=== PATIENT | female | born 1960 | race Caucasian/White ===

== ENCOUNTER → 2017-06-21 | Outpatient (CLI) | payer OTHER ==
[~2017-06-21] MED LIST: IBUP-1050 PO; OXYC-57 PO
[2017-06-25 14:18] LABS: HERPES SIMPLEX CULT SOURCE OTHER-FACIAL LESION; HERPES SIMPLEX VIRUS CULT NOT ISOLATED (NOT ISOLATED)
== END | disposition home or self-care (01) ==
LOC: C.LABSPEC 17:09
PROVIDERS: ATTEND Physician Assistant Medical
DX: L98.9 Disorder of the skin and subcutaneous tissue, unspecified (principal)

== ENCOUNTER → 2017-09-13 | Outpatient (CLI) | payer OTHER ==
[~2017-09-13] MED LIST changes: +ESCI10TA17 PO; +MULT-506 PO; +ROPI0.25 PO
[2017-09-13 13:30] LABS: BASO % 0.9 %; BASO ABS # 0.04 K/uL (0-0.2); EOS % 2.4 %; EOS ABS # 0.11 K/uL (0-0.5); HEMATOCRIT 42.3 % (37-47); HEMOGLOBIN 14.2 g/dL (12.0-16.0); IG# 0.01 K/uL (0.00-0.02); LYMPH % 33.8 %; LYMPH ABS # 1.55 K/uL (1.2-3.4); MEAN CELL VOLUME 85.3 fL (80-100); MEAN CORPUSCULAR HEMOGLOBIN 28.6 pg (25-34); MEAN CORPUSCULAR HGB CONC 33.6 g/dl (32-36); MEAN PLATELET VOLUME 10.4 fL (7.4-10.4); MONO % 10.9 %; NEUT % 51.8 %; NEUT ABS # 2.37 K/uL (1.4-6.5); PLATELET COUNT 265 K/uL (130-400); RED CELL DISTRIBUTION WIDTH CV 14.1 % (11.5-14.5); RED CELL DISTRIBUTION WIDTH SD 43.8 fL (36.4-46.3); WHITE BLOOD COUNT 4.58 K/uL (4.8-10.8)
[2017-09-13 13:52] LABS: ALBUMIN 3.9 gm/dl (3.4-5.0); ALT/SGPT 28 U/L (12-78); BLOOD UREA NITROGEN 15 mg/dl (7-18); CARBON DIOXIDE 28 mmol/L (21-32); CHOLESTEROL 200 mg/dl (0-200); CREATININE 0.76 mg/dl (0.60-1.20); GLUCOSE 95 mg/dl (70-99); SODIUM 138 mmol/L (136-145)
[2017-09-13 13:57] LABS: ALKALINE PHOSPHATASE 128 U/L (45-117); AST/SGOT 18 U/L (15-37); LDL CHOLESTEROL CALCULATED 130 mg/dl
== END | disposition home or self-care (01) ==
LOC: C.LABBC 10:33
PROVIDERS: ATTEND Physician Assistant Medical
DX: Z00.00 Encounter for general adult medical examination without abnormal findings (principal); R10.9 Unspecified abdominal pain; G25.81 Restless legs syndrome

== ENCOUNTER 2023-09-12 19:11 | Inpatient (IN) ==
[2023-09-12] MEDS ORDERED: SODIUM CHLORIDE 0.9% 1,000 ML IV STA (19:20)
[2023-09-12] MEDS ORDERED: SODIUM CHLORIDE 0.9% 1,000 ML IV ONE (19:30)
[2023-09-12] MEDS ORDERED: fentaNYL citrate PF 100 MCG/2 ML VIAL IV STA (19:30)
[2023-09-12] MEDS ORDERED: ONDANSETRON INJ 2 MG/ML 2 ML VIAL IV STA (19:30)
--- NOTE | 2023-09-12 19:34 | Emergency Department Note ---
Impression & Plan Perforated viscus, Abdominal pain ED Provider Note HISTORY OF PRESENT ILLNESS: Patient is a 62-year-old female presenting with lower abdominal pain, nausea and vomiting. Patient reports that she started to have diffuse lower abdominal pain this morning states that the pain has significantly worsened throughout the day. Describes it as a sharp and pressure sensation. Locates the pain diffusely across her lower abdomen. Reports nausea and multiple episodes of vomiting. Denies any diarrhea. Abdominal surgical history significant for a cholecystectomy. Reports subjective fevers at home today. Denies any dysuria or hematuria. ROS: as above PHYSICAL EXAM: Constitutional: Patient appears in mild distress. HENT: Head: Normocephalic and atraumatic. Eyes: EOMI, PERRL Mouth/Throat: Mucous membranes moist. Neck: Trachea midline. Neck supple. Cardiovascular: Bradycardic with regular rhythm. No murmurs, rubs or gallops. Intact distal pulses. Pulmonary/Chest: No respiratory distress. Breath sounds clear and equal bilaterally. No wheezes or rales. Abdominal: Abdomen soft. Diffuse tenderness across lower abdomen. Guarding present. Musculoskeletal: No edema, tenderness or deformity noted. Skin: Warm and dry. No rash, erythema, pallor or cyanosis Psychiatric: Appropriate mood and affect for situation. Neurological: Alert and keenly responsive. CN II-XII grossly intact, moving all extremities equally and fully. MDM: - Vitals signs showed hypotensive and bradycardic. - History obtained via patient. Patient presents with abdominal pain, nausea and vomiting. Patient reports symptoms started diffusely across her lower abdomen this morning and have significantly worsened throughout the day. Describes it as a sharp and pressure sensation. Reports an abdominal surgical history significant for cholecystectomy. Reports subjective fevers at home. She has had multiple episodes of vomiting and persistent nausea. - Chronic conditions affecting care: GERD - Differential diagnoses include, but are not limited to: appendicitis; diverticulitis; colitis; perforated viscus; UTI; ureteral calculus - Order placed for continuous cardiac monitoring. At this time, monitor showed rate of 50 bpm with normal sinus rhythm, per my interpretation. - External medical records reviewed. - EKG interpreted by myself showed normal sinus rhythm. Rate bradycardic at 44 bpm. QTc 437. No acute ischemic changes. - Laboratory workup interpreted by myself showed normal WBC but left shift; stable electrolytes; normal lipase - Patient given 2L NS, 4 mg IV zofran and initially 25 mcg IV fentanyl. Her blood pressure improved, but she complained of significant pain still. Given 4 mg IV morphine. On reassessment, still complaining of pain. Given 0.5 mg IV dilaudid. On reassessment, appears more comfortable. - UA showed evidence of infection. Given 2g IV rocephin - CT abdomen/pelvis with IV contrast showed scattered free intraperitoneal air concerning for bowel perforation. Given IV zosyn. - Discussed case with general surgery oncology admin, Dr. Alvarez at 9:45 pm. She plans to come assess patient. Requests admission to medicine - Hospitalist, Dr. Hess, consulted for admission. - Patient admitted to [facility] service for further evaluation and management. I have personally spent 46 minutes of critical care time in the direct management of this patient. This includes bedside care, interpretation of diagnostic studies, and testing, discussion with consultants, patient, and family members, and other required patient management activities. This 46 minutes is in excess of all separately billable procedures. ASSESSMENT AND PLAN: Diagnosis: abdominal pain Plan: admit Past Med/Surg History Medical History Abnormal angiogram of head GERD (gastroesophageal reflux disease) Hot flashes due to menopause Osteoarthritis Restless leg syndrome Synovial cyst of lumbar facet joint (08/04/14) Surgical History Brain aneurysm Cyst History of cholecystectomy History of colonoscopy Family History Mother Family history of diabetes mellitus Grandmother Family history of diabetes mellitus Social History Smoking Status: Never smoker Second Hand Exposure: No; Do You Dip or Chew Tobacco: No; Hx Alcohol Use: Yes Alcohol type: wine Hx Substance Use: No Preferred Language: Afghan Communication Ability: Effective Visual Impairment: Limited Hearing Ability: Normal Truck 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 Required: No Beliefs That Will Affect Care: None marital status: Current Living Situation: Spouse Feels Safe at Home: Yes Childhood Exposure to Second-Hand Smoke: No caffeine: Yes Dental Care, Regularly: Yes Physical Activity Frequency: 3-4 Times per Week Seatbelt Use: always Sunscreen Use: Yes Assistive Devices: Contacts Allergies Allergies Allergy/AdvReac Type Severity Reaction Status Date / Time No Known Allergies Allergy Verified 02/01/22 10:41 Home Meds Home Medications Medication Instructions Recorded Confirmed omeprazole magnesium 20 mg 20 mg PO QAM 07/03/18 02/01/22 tablet,delayed release (Prilosec OTC) cholecalciferol (vitamin D3) 50 2,000 units PO DAILY 09/18/19 02/01/22 mcg (2,000 unit) tablet Results & Data (ED) Vital Signs Vital Signs - 24 hr 09/12/23 19:14 09/12/23 19:25 09/12/23 19:26 Temperature 36.3 C L Temperature Source Oral Pulse Rate 48 L 42 L 42 L Pulse Rate [Apical] Pulse Rate from SpO2 Sensor Pulse Rhythm [Apical] Pulse Strength [Apical] Respiratory Rate 18 12 Respiratory Effort / Characteristics Non-Labored Spontaneous Respiratory Depth Normal Respiratory Pattern Regular Blood Pressure 77/47 L Blood Pressure [Right Arm] Blood Pressure Mean 57 Blood Pressure Mean [Right Arm] Blood Pressure Position Sitting Blood Pressure Position [Right Arm] Pulse Oximetry 100 Oxygen Delivery Method Room Air Sepsis Recent Fever Within 48 Hours No Sepsis New/Unexplained Change in Mental Status N/A Sepsis Action Taken by Nursing No Action Required 09/12/23 19:26 09/12/23 19:29 09/12/23 19:30 Temperature Temperature Source Pulse Rate Pulse Rate [Apical] Pulse Rate from SpO2 Sensor Pulse Rhythm [Apical] Pulse Strength [Apical] Respiratory Rate Respiratory Effort / Characteristics Respiratory Depth Respiratory Pattern Blood Pressure 89/35 L 88/47 L Blood Pressure [Right Arm] Blood Pressure Mean 54 60 Blood Pressure Mean [Right Arm] Blood Pressure Position Blood Pressure Position [Right Arm] Pulse Oximetry 98 Oxygen Delivery Method Room Air Sepsis Recent Fever Within 48 Hours Sepsis New/Unexplained Change in Mental Status Sepsis Action Taken by Nursing 09/12/23 19:30 09/12/23 19:40 09/12/23 19:50 Temperature Temperature Source Pulse Rate 47 L 49 L 54 L Pulse Rate [Apical] Pulse Rate from SpO2 Sensor 49 L 55 L Pulse Rhythm [Apical] Pulse Strength [Apical] Respiratory Rate 17 21 19 Respiratory Effort / Characteristics Respiratory Depth Respiratory Pattern Blood Pressure Blood Pressure [Right Arm] Blood Pressure Mean Blood Pressure Mean [Right Arm] Blood Pressure Position Blood Pressure Position [Right Arm] Pulse Oximetry 97 100 94 Oxygen Delivery Method Sepsis Recent Fever Within 48 Hours Sepsis New/Unexplained Change in Mental Status Sepsis Action Taken by Nursing 09/12/23 19:57 09/12/23 19:57 09/12/23 20:00 Temperature Temperature Source Pulse Rate 55 L 63 Pulse Rate [Apical] Pulse Rate from SpO2 Sensor 54 L Pulse Rhythm [Apical] Pulse Strength [Apical] Respiratory Rate 17 20 Respiratory Effort / Characteristics Respiratory Depth Respiratory Pattern Blood Pressure 98/62 L Blood Pressure [Right Arm] Blood Pressure Mean 74 Blood Pressure Mean [Right Arm] Blood Pressure Position Blood Pressure Position [Right Arm] Pulse Oximetry 98 95 Oxygen Delivery Method Room Air Sepsis Recent Fever Within 48 Hours Sepsis New/Unexplained Change in Mental Status Sepsis Action Taken by Nursing 09/12/23 20:00 09/12/23 20:10 09/12/23 20:10 Temperature Temperature Source Pulse Rate 54 L Pulse Rate [Apical] Pulse Rate from SpO2 Sensor Pulse Rhythm [Apical] Pulse Strength [Apical] Respiratory Rate 22 Respiratory Effort / Characteristics Respiratory Depth Respiratory Pattern Blood Pressure 105/63 77/63 L Blood Pressure [Right Arm] Blood Pressure Mean 78 67 Blood Pressure Mean [Right Arm] Blood Pressure Position Blood Pressure Position [Right Arm] Pulse Oximetry 96 Oxygen Delivery Method Room Air Sepsis Recent Fever Within 48 Hours Sepsis New/Unexplained Change in Mental Status Sepsis Action Taken by Nursing 09/12/23 20:11 09/12/23 20:11 09/12/23 20:11 Temperature Temperature Source Pulse Rate 51 L Pulse Rate [Apical] 52 L Pulse Rate from SpO2 Sensor 52 L Pulse Rhythm [Apical] Regular Pulse Strength [Apical] Normal Respiratory Rate 16 21 Respiratory Effort / Characteristics Non-Labored Spontaneous Respiratory Depth Normal Respiratory Pattern Regular Blood Pressure 93/55 L Blood Pressure [Right Arm] 95/54 L Blood Pressure Mean 60 Blood Pressure Mean [Right Arm] 67 Blood Pressure Position Blood Pressure Position [Right Arm] Semi-fowlers Pulse Oximetry 96 98 Oxygen Delivery Method Room Air Sepsis Recent Fever Within 48 Hours Sepsis New/Unexplained Change in Mental Status Sepsis Action Taken by Nursing 09/12/23 20:30 09/12/23 20:30 09/12/23 20:40 Temperature Temperature Source Pulse Rate 47 L Pulse Rate [Apical] Pulse Rate from SpO2 Sensor 47 L Pulse Rhythm [Apical] Pulse Strength [Apical] Respiratory Rate 24 Respiratory Effort / Characteristics Respiratory Depth Respiratory Pattern Blood Pressure 96/55 L 94/68 L Blood Pressure [Right Arm] Blood Pressure Mean 70 81 Blood Pressure Mean [Right Arm] Blood Pressure Position Blood Pressure Position [Right Arm] Pulse Oximetry 97 Oxygen Delivery Method Sepsis Recent Fever Within 48 Hours Sepsis New/Unexplained Change in Mental Status Sepsis Action Taken by Nursing 09/12/23 20:40 09/12/23 20:47 09/12/23 21:00 Temperature Temperature Source Pulse Rate 47 L Pulse Rate [Apical] 64 Pulse Rate from SpO2 Sensor 48 L Pulse Rhythm [Apical] Pulse Strength [Apical] Respiratory Rate 26 H 18 Respiratory Effort / Characteristics Respiratory Depth Respiratory Pattern Blood Pressure 96/56 L Blood Pressure [Right Arm] 110/62 Blood Pressure Mean 64 Blood Pressure Mean [Right Arm] 78 Blood Pressure Position Blood Pressure Position [Right Arm] Pulse Oximetry 95 94 Oxygen Delivery Method Room Air Sepsis Recent Fever Within 48 Hours Sepsis New/Unexplained Change in Mental Status Sepsis Action Taken by Nursing 09/12/23 21:00 09/12/23 21:31 Temperature Temperature Source Pulse Rate 64 Pulse Rate [Apical] 71 Pulse Rate from SpO2 Sensor Pulse Rhythm [Apical] Pulse Strength [Apical] Respiratory Rate 18 18 Respiratory Effort / Characteristics Non-Labored Respiratory Depth Normal Respiratory Pattern Blood Pressure 96/56 L Blood Pressure [Right Arm] 109/59 L Blood Pressure Mean 69 Blood Pressure Mean [Right Arm] 75 Blood Pressure Position Blood Pressure Position [Right Arm] Pulse Oximetry 94 95 Oxygen Delivery Method Room Air Room Air Sepsis Recent Fever Within 48 Hours Sepsis New/Unexplained Change in Mental Status Sepsis Action Taken by Nursing Laboratory Data 09/12/23 19:20 09/12/23 19:20 Lab Results 09/12/23 09/12/23 Range/Units 19:20 19:41 WBC 9.01 (4.8-10.8) K/ul RBC 4.74 (4.20-5.40) M/uL Hgb 12.9 (12.0-16.0) g/dl Hct 40.8 (37.0-47.0) % MCV 86.1 (80.0-100.0) fL MCH 27.2 (25.0-34.0) pg MCHC 31.6 L (32.0-36.0) g/dL RDW Std Deviation 45.0 (36.4-46.3) fL RDW Coeff of [place]ued[place] 14.2 (11.5-14.5) % Plt Count 260 (130-400) K/uL MPV 10.3 (9.4-12.4) fL Immature Gran % (Auto) 0.3 % Neut % (Auto) 82.6 % Lymph % (Auto) 12.0 % [place] % (Auto) 4.8 % Eos % (Auto) 0.0 % Baso % (Auto) 0.3 % Neut # (Auto) 7.44 H (1.40-6.50) K/uL Lymph # (Auto) 1.08 L (1.20-3.40) K/uL [place] # (Auto) 0.43 (0.11-0.59) K/uL Eos # (Auto) 0.00 (0.00-0.50) K/uL Baso # (Auto) 0.03 (0.00-0.20) K/uL Immature Gran # (Auto) 0.03 (0.01-0.20) K/uL Sodium 138 (136-145) mmol/L Potassium 3.5 (3.5-5.1) mmol/L Chloride 106 (98-107) mmol/L Carbon Dioxide 22 (21-32) mmol/L Anion Gap 10 (3-11) BUN 29 H (6-23) mg/dl Creatinine 1.04 (0.6-1.2) mg/dl Est Cr Clr Drug Dosing Not Reportable Est GFR ( Amer) 65.8 ml/min Est GFR (Non-Af Amer) 56.7 ml/min BUN/Creatinine Ratio 27.9 H (10-20) Glucose 112 H (70-99(Fasting)) mg/dl Calcium 8.8 (8.6-10.3) mg/dl Total Bilirubin 0.4 (0.2-1.0) mg/dl AST 16 (13-39) U/L ALT 18 (7-52) U/L Alkaline Phosphatase 107 H (34-104) U/L Total Protein 6.8 (6.0-8.3) gm/dl Albumin 3.9 (3.4-5.0) gm/dl Globulin 2.9 (2.5-4.0) gm/dl Albumin/Globulin Ratio 1.3 (0.9-2) Lipase 23 (11-82) U/L Urine Color Yellow Urine Appearance Cloudy A (Clear) Urine pH 5.5 (4.5-7.5) Ur Specific [place] 1.020 (1.000-1.030) Urine Protein Negative (Negative) Urine Glucose (UA) Negative (Negative) Urine Ketones Negative (Negative) Urine Blood 1+ H (Negative) Urine Nitrite Positive A (Negative) Urine Bilirubin Negative (Negative) Urine Urobilinogen Negative (Negative) Ur Leukocyte Esterase 2+ H (Negative) Urine WBC (Auto) >30 H (0-5) /hpf Urine RBC (Auto) 0-4 (0-4) /hpf U Hyaline Cast (Auto) 10-30 H (0-5) /lpf U Epithel Cells (Auto) 0-5 (0-5) /lpf Urine Bacteria (Auto) 3+ H (Negative) Administered Medications Piperacillin Sod/Tazobactam Sod (Zosyn) 4.5 gm in 100 mls @ 200 mls/hr IV NOW ONE Stop: 09/12/23 21:54 Last Admin: 09/12/23 21:31 Dose: 200 mls/hr Documented By: TACO Discontinued Medications Fentanyl Citrate (Fentanyl Citrate Pf 100 Mcg/2 Ml Vial) 25 mcg IV NOW STA Stop: 09/12/23 19:31 Last Admin: 09/12/23 19:36 Dose: 25 mcg Documented By: CHARI Hydromorphone HCl (Hydromorphone Inj 0.5 Mg/0.5 Ml Syr) 0.5 mg IV NOW STA Stop: 09/12/23 20:40 Last Admin: 09/12/23 20:48 Dose: 0.5 mg Documented By: TACO Sodium Chloride (Nss) 1,000 mls @ 999 mls/hr IV .Q1H1M STA Stop: 09/12/23 20:20 Last Infusion: 09/12/23 20:36 Dose: Infused Documented By: Admin: 09/12/23 19:29 Dose: 999 mls/hr Documented By: CHARI Sodium Chloride (Nss) 1,000 mls @ 999 mls/hr IV .Q1H1M ONE Stop: 09/12/23 20:30 Last Infusion: 09/12/23 20:36 Dose: Infused Documented By: Admin: 09/12/23 19:42 Dose: 999 mls/hr Documented By: CHARI Ceftriaxone Sodium (Rocephin) 2,000 mg in 50 mls @ 100 mls/hr IV NOW STA Stop: 09/12/23 20:26 Last Infusion: 09/12/23 21:03 Dose: Infused Documented By: Admin: 09/12/23 20:33 Dose: 100 mls/hr Documented By: CHARI Ioversol (Optiray 320 500ml) 89 ml IV ONCE ONE Stop: 09/12/23 20:20 Last Admin: 09/12/23 20:20 Dose: 89 ml Documented By: BEATRICE Morphine Sulfate (Morphine Sulfate 4 Mg/Ml 1 Ml Carp\Vial) 4 mg IV NOW STA Stop: 09/12/23 19:59 Last Admin: 09/12/23 20:04 Dose: 4 mg Documented By: LAY Ondansetron HCl (Ondansetron Inj 2 Mg/Ml 2 Ml Vial) 4 mg IV NOW STA Stop: 09/12/23 19:31 Last Admin: 09/12/23 19:35 Dose: 4 mg Documented By: CHARI Imaging Data Radiologist's Impression: Abdomen/Pelvis CT 09/12/23 19:21 CR Exam(s): CT ABDOMEN + PELVIS With Contrast IV Amt: 89 ml opti 320 EXAM: CT Abdomen and Pelvis With Intravenous Contrast CLINICAL HISTORY: Reason for exam: lower abdominal pain. TECHNIQUE: Axial computed tomography images of the abdomen and pelvis with intravenous contrast. CTDI is 20.71 mGy and DLP is 1111.44 mGy-cm. Automated exposure control was utilized for the study. A dose lowering technique was utilized adhering to the principles of ALARA. CONTRAST: Patient received 89 ml opti 320 of IV contrast COMPARISON: None. FINDINGS: Lung bases: Mild bilateral lower lobe atelectasis. Small foci of ground as opacities versuspattern to the lung bases may indicate pneumonitis versus small airway disease. Mediastinum: Moderate to large hiatal hernia. ABDOMEN: Liver: Multiple low-attenuation structures within the liver with Hounsfield units suggestive of liver cysts, largest seen in the left liver lobe measuring 2.4 cm. Remainder of the liver unremarkable. Gallbladder and bile ducts: Status post cholecystectomy. No ductal dilation. Pancreas: Unremarkable. No mass. No ductal dilation. Spleen: Unremarkable. No splenomegaly. Adrenals: Unremarkable. No mass. Kidneys and ureters: Mild fullness of the left renal collecting system and left renal pelvis suggestive of left UPJ etiology. The left ureter is normal. Stomach and bowel: Multiple loops of small bowel mildly distended which may indicate mild ileus. Due to thickening of small bowel, cannot this with enteritis. Thickening of the wall throughout the right colon and descending colon/sigmoid suggestive of colitis. Diverticulosis throughout the colon diffusely with no signs of diverticulitis. PELVIS: Appendix: Distinct appendix not visualized. Bladder: Unremarkable. No mass. Reproductive: Unremarkable as visualized. ABDOMEN and PELVIS: Intraperitoneal space: Scattered areas of free intraperitoneal air. Mild to moderate free fluid within the pelvis. Bones/joints: Anterolisthesis of L4 and L5 without pars defect. Mild spondylosis and degenerative disease throughout the lumbar spine and bilateral SI joints. No acute fracture. No dislocation. Soft tissues: Left medullary nipple low-attenuation structure measuring 12 mm compatible with simple cysts. Vasculature: Unremarkable. No abdominal aortic aneurysm. Lymph nodes: Unremarkable. No enlarged lymph nodes. IMPRESSION: 1. Scattered free intraperitoneal air which may indicate sequela of recent surgery versus bowel perforation. 2. Moderate to large hiatal hernia. Possible colitis. Mild small bowel distention in the mid low abdomen and pelvis concerning for ileus. Cannot exclude with enteritis. 3. Mild to moderate free fluid in the pelvis. 4. Multiple sub-the left renal collecting system with normal left ureter, cannot exclude left hip joint etiology. Status post cholecystectomy, multiple liver cyst as described. Remainder of abdominal viscera are unremarkable. Communications: Call Doctor Other Electronically signed by: Norma Rebolledo MD 09/12/23 21:22 PM Discharge Plan Visit Data Chief Complaint: Abdominal Pain Stated Complaint: SEVERE ABD PAIN ED Provider: Noemy Delgado Discharge Problem: Perforated viscus, Abdominal pain Forms Stand Alone Forms: My [facility] Travel Prescriptions Prescriptions: No Action cholecalciferol (vitamin D3) 2,000 unit tablet 2,000 units PO DAILY omeprazole magnesium [Prilosec OTC] 20 mg Tablet,Delayed Release (Dr/Ec) 20 mg PO QAM Referrals Referrals: [facility] [Non-Staff] -
[2023-09-12 19:53] LABS: Appearance Urine Cloudy (Clear); Bacteria Urine Automated 3+ (Negative); Bilirubin Urine Negative (Negative); Blood Urine 1+ (Negative); Color Urine Yellow; Epithelial Cell Urine Auto 0-5 /lpf (0-5); Glucose Urine UA Negative (Negative); Ketones Urine Negative (Negative); Leukocyte Esterase Urine 2+ (Negative); Nitrite Urine Positive (Negative); Protein Urine Negative (Negative); RBC Urine Automated 0-4 /hpf (0-4); Urobilinogen Urine Negative (Negative); WBC Urine Automated >30 /hpf (0-5); pH Urine 5.5 (4.5-7.5)
[2023-09-12] MEDS ORDERED: cefTRIAXone SODIUM 2,000 MG/50 ML BAG IV STA (19:57)
[2023-09-12 19:58] LABS: Alanine Aminotransferase 18 U/L (7-52); Albumin Globulin Ratio 1.3 (0.9-2); Albumin Level 3.9 gm/dl (3.4-5.0); Alkaline Phosphatase 107 U/L (34-104); Anion Gap 10 (3-11); Aspartate Aminotransferase 16 U/L (13-39); BUN Creatinine Ratio 27.9 (10-20); Bilirubin,Total 0.4 mg/dl (0.2-1.0); Blood Urea Nitrogen 29 mg/dl (6-23); Calcium 8.8 mg/dl (8.6-10.3); Carbon Dioxide 22 mmol/L (21-32); Chloride 106 mmol/L (98-107); Est GFR (African American) 65.8 ml/min; Est GFR (Non-African American) 56.7 ml/min; Globulin 2.9 gm/dl (2.5-4.0); Glucose 112 mg/dl (70-99(Fasting)); Lipase 23 U/L (11-82); Potassium 3.5 mmol/L (3.5-5.1); Sodium 138 mmol/L (136-145); Total Protein 6.8 gm/dl (6.0-8.3)
[2023-09-12] MEDS ORDERED: MoRPHine SULFATE 4 MG/ML 1 ML CARP\\VIAL IV STA (19:58)
[2023-09-12 20:17] LABS: Basophils # (auto) 0.03 K/uL (0.00-0.20); Basophils % (auto) 0.3 %; Hematocrit (blood only) 40.8 % (37.0-47.0); Hemoglobin 12.9 g/dl (12.0-16.0); Immature Granulocytes # (auto) 0.03 K/uL (0.01-0.20); Immature Granulocytes % (auto) 0.3 %; Lymphocytes # (auto) 1.08 K/uL (1.20-3.40); Mean Corpuscular Hemoglobin 27.2 pg (25.0-34.0); Mean Corpuscular Hgb Conc 31.6 g/dL (32.0-36.0); Mean Corpuscular Volume 86.1 fL (80.0-100.0); Mean Platelet Volume 10.3 fL (9.4-12.4); Monocytes # (auto) 0.43 K/uL (0.11-0.59); Monocytes % (auto) 4.8 %; Neutrophils # (auto) 7.44 K/uL (1.40-6.50); Neutrophils % (auto) 82.6 %; Platelet Count 260 K/uL (130-400); RDW Coefficient of Variation 14.2 % (11.5-14.5); Red Blood Count 4.74 M/uL (4.20-5.40); White Blood Count 9.01 K/ul (4.8-10.8)
[2023-09-12] MEDS ORDERED: OPTIRAY 320 500ml IV ONE (20:19)
[2023-09-12] MEDS ORDERED: HYDROmorphone INJ 0.5 MG/0.5 ML SYR IV STA (20:39)
--- NOTE | 2023-09-12 21:23 | CT Scan Report ---
Exam(s): CT ABDOMEN + PELVIS With Contrast IV Amt: 89 ml opti 320 EXAM: CT Abdomen and Pelvis With Intravenous Contrast CLINICAL HISTORY: Reason for exam: lower abdominal pain. TECHNIQUE: Axial computed tomography images of the abdomen and pelvis with intravenous contrast. CTDI is 20.71 mGy and DLP is 1111.44 mGy-cm. Automated exposure control was utilized for the study. A dose lowering technique was utilized adhering to the principles of ALARA. CONTRAST: Patient received 89 ml opti 320 of IV contrast COMPARISON: None. FINDINGS: Lung bases: Mild bilateral lower lobe atelectasis. Small foci of ground as opacities versuspattern to the lung bases may indicate pneumonitis versus small airway disease. Mediastinum: Moderate to large hiatal hernia. ABDOMEN: Liver: Multiple low-attenuation structures within the liver with Hounsfield units suggestive of liver cysts, largest seen in the left liver lobe measuring 2.4 cm. Remainder of the liver unremarkable. Gallbladder and bile ducts: Status post cholecystectomy. No ductal dilation. Pancreas: Unremarkable. No mass. No ductal dilation. Spleen: Unremarkable. No splenomegaly. Adrenals: Unremarkable. No mass. Kidneys and ureters: Mild fullness of the left renal collecting system and left renal pelvis suggestive of left UPJ etiology. The left ureter is normal. Stomach and bowel: Multiple loops of small bowel mildly distended which may indicate mild ileus. Due to thickening of small bowel, cannot this with enteritis. Thickening of the wall throughout the right colon and descending colon/sigmoid suggestive of colitis. Diverticulosis throughout the colon diffusely with no signs of diverticulitis. PELVIS: Appendix: Distinct appendix not visualized. Bladder: Unremarkable. No mass. Reproductive: Unremarkable as visualized. ABDOMEN and PELVIS: Intraperitoneal space: Scattered areas of free intraperitoneal air. Mild to moderate free fluid within the pelvis. Bones/joints: Anterolisthesis of L4 and L5 without pars defect. Mild spondylosis and degenerative disease throughout the lumbar spine and bilateral SI joints. No acute fracture. No dislocation. Soft tissues: Left medullary nipple low-attenuation structure measuring 12 mm compatible with simple cysts. Vasculature: Unremarkable. No abdominal aortic aneurysm. Lymph nodes: Unremarkable. No enlarged lymph nodes. IMPRESSION: 1. Scattered free intraperitoneal air which may indicate sequela of recent surgery versus bowel perforation. 2. Moderate to large hiatal hernia. Possible colitis. Mild small bowel distention in the mid low abdomen and pelvis concerning for ileus. Cannot exclude with enteritis. 3. Mild to moderate free fluid in the pelvis. 4. Multiple sub-the left renal collecting system with normal left ureter, cannot exclude left hip joint etiology. Status post cholecystectomy, multiple liver cyst as described. Remainder of abdominal viscera are unremarkable. Communications: Call Doctor Other Electronically signed by: Norma Rebolledo MD 09/12/23 21:22 PM
[2023-09-12] MEDS ORDERED: PIPERACILLIN/TAZOBACTAM 4.5 GM/100 ML BAG IV ONE (21:25)
--- NOTE | 2023-09-12 22:49 | Surgery Consultation ---
Date of Consultation September 12, 2023 Assessment & Plan (1) Perforated viscus: (2) Abdominal pain: Zo is currently afebrile, hemodynamically stable and without leukocytosis, slightly elevated absolute neutrophil count. She does have signs of peritonitis with a considerable amount of fluid within the pelvis and scattered free air noted on CT imaging. Zo will be taken to the operating room for exploratory laparoscopy, possible laparotomy, possible bowel resection, possible colostomy and all other indicated procedures. I have explained to Zo and her that what ever is in countered to be the sick organ may need to be resected and or suture repaired. The understand the explanation of the procedure, risks and benefits. Consent has been obtained and is on the chart. Admission to medicine has been initiated N.p.o. status now and postoperatively IV fluids and IV antibiotics have been initiated in the emergency department and should continue postoperatively No chemical DVT prophylaxis at this time, mechanical DVT prophylaxis will be initiated Incentive spirometer postoperatively History of Present Illness Reason for Consultation: Perforated viscus History of Present Illness Zo is a very pleasant 62-year-old female with no significant past medical history who presented to the ED with abdominal pain that started in her left lower abdomen early this morning. She states this pain became progressively worse throughout the afternoon and by this evening was so severe that she was feeling lightheaded, nausea with vomiting and mentally altered. She was brought into the ED by her Jacky. Zo says she has never had anything like this happen in the past although she does note having a prior episode of diverticulitis roughly 18 years ago during which time she was treated with oral antibiotics. Zo says she has had a few colonoscopies her most recent colonoscopy was performed here on July 08, 2018 at which time to polyps were removed and ricketts diverticulosis was noted. Zo denies any significant acid reflux. Allergies Allergy/AdvReac Type Severity Reaction Status Date / Time No Known Allergies Allergy Verified 09/12/23 22:01 Home Medications Medication Instructions Recorded Confirmed Type omeprazole magnesium 20 mg 20 mg PO QAM 07/03/18 09/12/23 History tablet,delayed release (Prilosec OTC) escitalopram oxalate 10 mg tablet 10 mg PO QAM 09/12/23 09/12/23 History Patient History Medical History Abnormal angiogram of head GERD (gastroesophageal reflux disease) Hot flashes due to menopause Osteoarthritis Restless leg syndrome Synovial cyst of lumbar facet joint (08/04/14) Surgical History Brain aneurysm Cyst History of cholecystectomy History of colonoscopy Family History Mother Family history of diabetes mellitus Grandmother Family history of diabetes mellitus Social History Smoking Status: Never smoker Second Hand Exposure: No; Do You Dip or Chew Tobacco: No; Hx Alcohol Use: Yes Alcohol type: wine Hx Substance Use: No Preferred Language: Irish Communication Ability: Effective Visual Impairment: Limited Hearing Ability: Normal Air Intercept Controller Supervisor Required: No Beliefs That Will Affect Care: None marital status: Current Living Situation: Spouse Feels Safe at Home: Yes Childhood Exposure to Second-Hand Smoke: No caffeine: Yes Dental Care, Regularly: Yes Physical Activity Frequency: 3-4 Times per Week Seatbelt Use: always Sunscreen Use: Yes Assistive Devices: Contacts Review of Systems Constitutional: no body aches, no malaise, no anorexia and no weight loss Respiratory: no cough, no dyspnea, no wheezing and no problem reported Gastrointestinal: + abdominal pain (Primarily left lower q uadrant), + bloating, + nausea (None current) and + vomiting (None current); no heartburn Genitourinary: no dysuria, no urinary frequency, no hematuria and no flank pain Physical Exam Constitutional: healthy appearing; not ill appearing, not in distress (Visibly in pain, very stoic) and not diaphoretic Respiratory: normal respiratory effort; no respiratory distress, no labored breathing and does not use accessory muscles Cardiovascular: Rate/Rhythm: regular rate; not tachycardic Extremities are well-perfused Gastrointestinal (Abdomen): Abdomen mildly distended Abdomen is rigid/peritonitic Tender to palpation left upper quadrant and bilateral lower quadrants Results & Data Vital Signs (Past 12 Hours) Vital Signs Temp Pulse Pulse Resp BP BP Pulse Ox 09/12/23 22:01 61 18 115/63 94 09/12/23 21:31 71 18 109/59 L 95 09/12/23 21:00 64 18 96/56 L 94 09/12/23 21:00 96/56 L 09/12/23 20:47 64 18 110/62 94 09/12/23 20:40 47 L 26 H 95 09/12/23 20:40 94/68 L 09/12/23 20:30 96/55 L 09/12/23 20:30 47 L 24 97 09/12/23 20:11 93/55 L 09/12/23 20:11 51 L 21 98 09/12/23 20:11 52 L 16 95/54 L 96 09/12/23 20:10 77/63 L 09/12/23 20:10 54 L 22 96 09/12/23 20:00 105/63 09/12/23 20:00 63 20 95 09/12/23 19:57 98/62 L 09/12/23 19:57 55 L 17 98 09/12/23 19:50 54 L 19 94 09/12/23 19:40 49 L 21 100 09/12/23 19:30 47 L 17 97 09/12/23 19:30 88/47 L 09/12/23 19:29 98 09/12/23 19:26 89/35 L 09/12/23 19:26 42 L 12 09/12/23 19:25 42 L 09/12/23 19:14 36.3 C L 48 L 18 77/47 L 100 O2 Del Method 09/12/23 22:01 Room Air 09/12/23 21:31 Room Air 09/12/23 21:00 Room Air 09/12/23 21:00 09/12/23 20:47 Room Air 09/12/23 20:40 09/12/23 20:40 09/12/23 20:30 09/12/23 20:30 09/12/23 20:11 09/12/23 20:11 09/12/23 20:11 Room Air 09/12/23 20:10 09/12/23 20:10 Room Air 09/12/23 20:00 09/12/23 20:00 09/12/23 19:57 09/12/23 19:57 Room Air 09/12/23 19:50 09/12/23 19:40 09/12/23 19:30 09/12/23 19:30 09/12/23 19:29 Room Air 09/12/23 19:26 09/12/23 19:26 09/12/23 19:25 09/12/23 19:14 Room Air Diagnostic Findings CT abdomen and pelvis with IV contrast: I reviewed the CT scan myself. There are scattered spots of free air throughout the abdomen with a moderate amount of fluid in the pelvis. This fluid appears to be adjacent to the sigmoid colon where there is some haziness but it is difficult to identify a specific area of inflammation due to the fluid abutting the area. The radiology read is available noting some distended loops of small bowel as well as bowel wall thickening, scattered free air, free fluid. PG Care Time/CCT Total # of Minutes Spent Total Time Spent with Patient: Total time spent is greater than 50% in coordination of care (as documented) at patient's floor/unit and/or counseling patient: [place] [address] OFFICE CONSULT LVL 40M Patient Type New History Detailed Exam Detailed Medical Decision Making Moderate Complexity Diagnoses Perforated viscus R19.8 Abdominal pain R10.9
--- NOTE | 2023-09-12 22:52 | Anesthesiology Consultation ---
Date of Service September 12, 2023 Assessment & Plan (1) Encounter for pre-operative examination: Chart Review Chart Review: Patient NOT seen in Pre Admission Testing emergent procedure Consults Requested none History Surgery Operation Date: 09/12/23 23:00 Proposed Procedures p Laparoscopic Bowel Resection - Fariha Alvarez DO Height/Weight Height: 5 ft 8 in Weight: 84.5 kg Allergies Allergy/AdvReac Type Severity Reaction Status Date / Time No Known Allergies Allergy Verified 09/12/23 22:01 Medications Home Medications Medication Instructions Recorded Confirmed Last Taken omeprazole magnesium 20 mg 20 mg PO QAM 07/03/18 09/12/23 09/12/23 tablet,delayed release (Prilosec OTC) escitalopram oxalate 10 mg tablet 10 mg PO QAM 09/12/23 09/12/23 09/12/23 Past Medical History Medical History Osteoarthritis GERD (gastroesophageal reflux disease) Hot flashes due to menopause Abnormal angiogram of head MULTIPLE ANGIOGRAMS S/P ANEURYSM Restless leg syndrome Synovial cyst of lumbar facet joint (08/04/14) Past Family History Family History Mother Family history of diabetes mellitus Grandmother Family history of diabetes mellitus Past Surgical History Surgical History Cyst ON BACK REMOVED History of colonoscopy 06/2018 repeat 5 yrs History of cholecystectomy Brain aneurysm COILED 4 YEARS AGO Social History Smoking Status: Never smoker Do You Dip or Chew Tobacco: No Hx Alcohol Use: Yes Alcohol type: wine alcohol intake frequency: a few times a month Hx Substance Use: No substance use type: does not use Physical Exam Vital Signs Last Vital Signs Temp 97.3 F L 09/12/23 19:14 Pulse 61 09/12/23 22:01 Resp 18 09/12/23 22:01 BP 115/63 09/12/23 22:01 Pulse Ox 94 09/12/23 22:01 O2 Del Method Room Air 09/12/23 22:01 Testing Laboratory Results 09/12/23 19:20 09/12/23 19:20 Urine Color Yellow 09/12/23 19:41 Urine Appearance Cloudy (Clear) A 09/12/23 19:41 Urine pH 5.5 (4.5-7.5) 09/12/23 19:41 Ur Specific [place] 1.020 (1.000-1.030) 09/12/23 19:41 Urine Protein Negative (Negative) 09/12/23 19:41 Urine Glucose (UA) Negative (Negative) 09/12/23 19:41 Urine Ketones Negative (Negative) 09/12/23 19:41 Urine Nitrite Positive (Negative) A 09/12/23 19:41 Ur Leukocyte Esterase 2+ (Negative) H 09/12/23 19:41 Urine WBC (Auto) >30 /hpf (0-5) H 09/12/23 19:41 Urine RBC (Auto) 0-4 /hpf (0-4) 09/12/23 19:41 U Hyaline Cast (Auto) 10-30 /lpf (0-5) H 09/12/23 19:41 U Epithel Cells (Auto) 0-5 /lpf (0-5) 09/12/23 19:41 Urine Bacteria (Auto) 3+ (Negative) H 09/12/23 19:41
[2023-09-12] MEDS ORDERED: ONDANSETRON INJ 2 MG/ML 2 ML VIAL ONE (22:56)
[2023-09-12] MEDS ORDERED: PROPOFOL IV EMULSION 10 MG/ML 20 ML VIAL IV ONE (22:56)
[2023-09-12] MEDS ORDERED: SUCCINYLCHOLINE 100MG/5ML SYR IV ONE (22:56)
[2023-09-12] MEDS ORDERED: DEXAMETHASONE SOD INJ 4 MG/ML VIAL ONE (22:56)
[2023-09-12] MEDS ORDERED: ROCURONIUM BROMIDE 10 MG/ML 5 ML VIAL IV ONE (22:56)
[2023-09-12] MEDS ORDERED: fentaNYL citrate PF 100 MCG/2 ML VIAL ONE (22:57)
[2023-09-12] MEDS ORDERED: MIDAZOLAM HCL 1 MG/ML 2ML VIAL ONE (22:57)
[2023-09-12] MEDS ORDERED: ATROPINE SULFATE 0.1 MG/ML 10ML SYR IV PRN (23:12)
[2023-09-12] MEDS ORDERED: ePHEDrine sulfate 50 MG/ML AMP IV PRN (23:12)
[2023-09-12] MEDS ORDERED: ONDANSETRON INJ 2 MG/ML 2 ML VIAL IV PRN (23:12)
[2023-09-12] MEDS ORDERED: fentaNYL citrate PF 100 MCG/2 ML VIAL IV PRN (23:12)
[2023-09-12] MEDS ORDERED: BUPIVACAINE/EPINEPHRINE 0.5% MPF 1:200,000 30 ML VIAL ONE (23:18)
[2023-09-13] MEDS ORDERED: fentaNYL citrate PF 100 MCG/2 ML VIAL ONE (00:35)
[2023-09-13] MEDS ORDERED: SUGAMMADEX SODIUM 200 MG/2 ML VIAL IV ONE (00:36)
--- NOTE | 2023-09-13 01:35 | Operative Report ---
PG Post Operative Report Pre & Post Diagnosis Operation Date: 09/12/23 23:00 Pre-Op Diagnosis: Perforated viscus; Abdominal pain Post-Op Diagnosis: Perforated viscus; Abdominal pain I identified the patient and participated in the time-out.: Yes Procedure Operation Date: 09/12/23 23:00 Actual Procedures p Exploratory Laparoscopy, Washout, Lysis of Adhesions, Drain Insertion - Fariha Alvarez DO Surgeon Fariha Alvarez DO Dusting And Brushing Machine Operator No surgical elastic knitter Estimated Blood Loss 2 Findings See Below Evidence for sigmoid colon perforation with developing abscess Specimens None Drains 10 Chinese flat JORDYN Anesthesia Type General Indications Peritonitis Description of Procedure The patient was brought back to the operating room and placed on the operating room table in supine position. She was connected to cardiac and oxygen monitoring. SCDs were applied to bilateral lower extremities. The patient was administered supplemental oxygen as well as general anesthesia and a secure airway was obtained. A Hurtado catheter was inserted. The abdomen was prepped and draped in typical sterile fashion. A timeout was conducted. Local anesthetic was injected into the skin and subcutaneous tissues just superior to the umbilicus and intra-abdominal access was gained using a Veress needle. Pneumoperitoneum was established local pressure 15 mmHg using CO2 insufflation. A 5 mm laparoscope was inserted under direct visualization using a 5 mm Visiport. 2 additional 5 mm trocars were inserted along the right lower quadrant after injecting local anesthetic into the subcutaneous tissues and making a stab incision with an 11 blade. The intra-abdominal space was inspected immediately encountering purulent fluid and exudate at the lower abdomen. Soft exudate was able to be suctioned away as well as purulent fluid from the superior aspect of the uterus and some small bowel loops that were in the area. This fluid and exudative material was collected for culture. The small bowel was mobilized identifying the sigmoid colon which was softly adhesed to the posterior aspect of the left fallopian tube and ovary. These adhesions were using gentle and blunt dissection as this was the suspected area for the potential perforated viscus. As this area was further exposed there was a small amount of superficial necrotic tissue covering the colon at this location as well as a cavitation suspicious for developing abscess cavity. There was no feculent fluid or material within the abdomen and no extravasation of colonic contents with pressure applied to the sigmoid colon. At this point seemed as though the suspected perforation had sealed itself off. The area was copiously irrigated and suctioned dry. The pelvis contained the most amount of purulent fluid and was also copiously irrigated/suction. There was also purulent fluid identified at the left upper and right upper quadrants. These areas were also copiously irrigated and suction. The abdomen in general was suction with 3 L of fluid. A 10 Chinese flat JORDYN drain was inserted into the pelvis. Omentum was used to cover the area of suspected perforation of the sigmoid colon. Pneumoperitoneum was evacuated, trocars and instruments were removed. The JORDYN drain was sewn into place using a nylon suture. 4-0 Vicryl suture was used at the other 2 laparoscopic incisions and the incisions were sealed with Dermabond. The patient was awakened from anesthesia, the secure airway was removed and she was transferred to recovery in stable condition. Her was called from the operating room with an update I attest to the content of the Intraoperative Record and any orders documented therein. Any exceptions are noted below.
--- NOTE | 2023-09-13 01:43 | Anesthesiology Progress Note ---
Date of Service September 13, 2023 Anesthesia Post Procedure Vital Signs Vital Signs: Temp Pulse Pulse Resp BP BP Pulse Ox 09/13/23 01:36 97.3 F L 97 H 18 117/53 L 92 09/13/23 01:26 97.3 F L 102 H 16 111/50 L 94 09/12/23 22:58 75 18 99/61 L 95 09/12/23 22:01 61 18 115/63 94 09/12/23 21:31 71 18 109/59 L 95 09/12/23 21:00 64 18 96/56 L 94 09/12/23 21:00 96/56 L 09/12/23 20:47 64 18 110/62 94 09/12/23 20:40 47 L 26 H 95 09/12/23 20:40 94/68 L 09/12/23 20:30 96/55 L 09/12/23 20:30 47 L 24 97 09/12/23 20:11 93/55 L 09/12/23 20:11 51 L 21 98 09/12/23 20:11 52 L 16 95/54 L 96 09/12/23 20:10 77/63 L 09/12/23 20:10 54 L 22 96 09/12/23 20:00 105/63 09/12/23 20:00 63 20 95 09/12/23 19:57 98/62 L 09/12/23 19:57 55 L 17 98 09/12/23 19:50 54 L 19 94 09/12/23 19:40 49 L 21 100 09/12/23 19:30 47 L 17 97 09/12/23 19:30 88/47 L 09/12/23 19:29 98 09/12/23 19:26 89/35 L 09/12/23 19:26 42 L 12 09/12/23 19:25 42 L 09/12/23 19:14 97.3 F L 48 L 18 77/47 L 100 O2 Del Method O2 Flow Rate 09/13/23 01:36 Room Air 09/13/23 01:26 Nasal Cannula 3 09/12/23 22:58 Room Air 09/12/23 22:01 Room Air 09/12/23 21:31 Room Air 09/12/23 21:00 Room Air 09/12/23 21:00 09/12/23 20:47 Room Air 09/12/23 20:40 09/12/23 20:40 09/12/23 20:30 09/12/23 20:30 09/12/23 20:11 09/12/23 20:11 09/12/23 20:11 Room Air 09/12/23 20:10 09/12/23 20:10 Room Air 09/12/23 20:00 09/12/23 20:00 09/12/23 19:57 09/12/23 19:57 Room Air 09/12/23 19:50 09/12/23 19:40 09/12/23 19:30 09/12/23 19:30 09/12/23 19:29 Room Air 09/12/23 19:26 09/12/23 19:26 09/12/23 19:25 09/12/23 19:14 Room Air Pain Intensity Lower Abdomen: Pain Intensity: 2 Transfer of Care Handoff Completed per policy Notes Mental Status: alert / awake / arousable and participated in evaluation Patient Amnestic to Procedure: Yes Nausea / Vomiting: adequately controlled Pain: adequately controlled Airway Patency, RR, SpO2: stable & adequate BP & HR: stable & adequate Hydration State: stable & adequate Anesthetic Complications: no major complications apparent and Pt Satisfied with anesthetic care
[2023-09-13] MEDS: D5W AND NSS 1,000 ML IV SCH ×4 (02:58→22:56)
--- NOTE | 2023-09-13 03:23 | History & Physical Report ---
Date of Service September 13, 2023 Assessment & Plan (1) Perforated viscus: Plan: 62-year-old female with past med significant for allergic rhinitis, asthma cough variant, GERD, diverticulosis of colon presents for lower abdominal pain and found to have perforated viscus s/p surgery currently. Yesterday morning patient developed abdominal pain and as day progressed it became severe associated with nausea and sweating. Came to the ER in the evening and a CAT scan showing possible perforated viscus. S/p exploratory laparoscopy and found to have sigmoid colon perforation with developing abscess s/p washout and lysis of additions and drain insertion. Perforated viscus S/p exploratory laparoscopy and found to have sigmoid colon perforation with developing abscess s/p washout and lysis of additions and drain insertion. IV Zosyn IV fluids IV pain meds., IV antiemetics as needed N.p.o. for now Surgery on board GERD Will place on IV Pepcid for now DVT prophylaxis SCDs for now Disposition Medical floor Full code Admission and Anticipated Discharge Date Admission Date: September 13, 2023 History of Present Illness Chief Complaint: Perforated viscus Primary Care Provider: SAMY Montalvo 62-year-old female with past med significant for allergic rhinitis, asthma cough variant, GERD, diverticulosis of colon presents for lower abdominal pain and found to have perforated viscus s/p surgery currently. Yesterday morning patient developed abdominal pain and as day progressed it became severe associated with nausea and sweating. Came to the ER in the evening and a CAT scan showing possible perforated viscus. S/p exploratory laparoscopy and found to have sigmoid colon perforation with developing abscess s/p washout and lysis of adhesions and drain insertion. Patient currently resting comfortably. Feel ing better. Denies any fevers. No chest pain or shortness of breath. Currently has no headache. Has mild neck pain. No cough. Resting comfortably. Past medical history. As mentioned above Past surgical history. Per epic induced by D&E. Brain aneurysm coil procedure in 2013. Colonoscopy. Injection of lumbosacral spine. Laparoscopic cholecystectomy in 2008. Lumbar spine cyst excision in 2013. Social history. . No smoking. Alcohol rare. No drug use. Family history. Father had CHF. Dementia. Mother had diabetes. Maternal grandmother had stroke. Diabetes. Allergies Allergy/AdvReac Type Severity Reaction Status Date / Time No Known Allergies Allergy Verified 09/12/23 22:01 Home Medications Medication Instructions Recorded Confirmed Type omeprazole magnesium 20 mg 20 mg PO QAM 07/03/18 09/12/23 History tablet,delayed release (Prilosec OTC) escitalopram oxalate 10 mg tablet 10 mg PO QAM 09/12/23 09/12/23 History Past Med/Surg History Medical History Osteoarthritis GERD (gastroesophageal reflux disease) Hot flashes due to menopause Abnormal angiogram of head MULTIPLE ANGIOGRAMS S/P ANEURYSM Restless leg syndrome Synovial cyst of lumbar facet joint (08/04/14) Surgical History Cyst ON BACK REMOVED History of colonoscopy 06/2018 repeat 5 yrs History of cholecystectomy Brain aneurysm COILED 4 YEARS AGO Family History Mother Family history of diabetes mellitus Grandmother Family history of diabetes mellitus Social History Smoking Status: Never smoker Second Hand Exposure: No; Do You Dip or Chew Tobacco: No; Hx Alcohol Use: Yes Alcohol type: wine and hard liquor Hx Substance Use: No Preferred Language: Yemeni Communication Ability: Effective Visual Impairment: Limited Hearing Ability: Normal Preparation Supervisor Canning Required: No Beliefs That Will Affect Care: None marital status: Current Living Situation: Spouse Other Information That Helps Us Care for You: No Feels Safe at Home: Yes Safety Concerns: Feels Safe At This Time Childhood Exposure to Second-Hand Smoke: No caffeine: Yes Dental Care, Regularly: Yes Physical Activity Frequency: 3-4 Times per Week Seatbelt Use: always Sunscreen Use: Yes Assistive Devices: Glasses Review of Systems Review of Systems: All systems reviewed & are unremarkable except as noted in HPI & below Physical Exam Physical Exam: General- Not in distress Head- atraumatic Neck- supple, no JVD,carotids no bruits appreciated Lungs- clear to auscultation no wheezing or crackles. Heart- regular rhythm; no murmur, no gallop. Abdomen- s/p exploratory laparoscopy. dressing and drain seen. No distension. Extremities- no pretibial edema, no erythema seen. Neuro- alert, oriented x 3; I; no facial palsy; no dysarthria; moves extremities. Skin- warm & dry Results & Data Results & Data Vital Signs (Past 12 Hours) Vital Signs Temp Pulse Pulse Pulse Resp BP BP 09/13/23 02:30 36.5 C 81 18 108/64 09/13/23 01:46 37 C 94 H 18 102/61 09/13/23 01:36 36.3 C L 97 H 18 117/53 L 09/13/23 01:26 36.3 C L 102 H 16 111/50 L 09/12/23 22:58 75 18 99/61 L 09/12/23 22:01 61 18 115/63 09/12/23 21:31 71 18 109/59 L 09/12/23 21:00 64 18 96/56 L 09/12/23 21:00 96/56 L 09/12/23 20:47 64 18 110/62 09/12/23 20:40 47 L 26 H 09/12/23 20:40 94/68 L 09/12/23 20:30 96/55 L 09/12/23 20:30 47 L 24 09/12/23 20:11 93/55 L 09/12/23 20:11 51 L 21 09/12/23 20:11 52 L 16 95/54 L 09/12/23 20:10 77/63 L 09/12/23 20:10 54 L 22 09/12/23 20:00 105/63 09/12/23 20:00 63 20 09/12/23 19:57 98/62 L 09/12/23 19:57 55 L 17 09/12/23 19:50 54 L 19 09/12/23 19:40 49 L 21 09/12/23 19:30 47 L 17 09/12/23 19:30 88/47 L 09/12/23 19:29 09/12/23 19:26 89/35 L 09/12/23 19:26 42 L 12 09/12/23 19:25 42 L 09/12/23 19:14 36.3 C L 48 L 18 77/47 L Pulse Ox O2 Del Method O2 Flow Rate 09/13/23 02:30 92 Room Air 09/13/23 01:46 93 Room Air 09/13/23 01:36 92 Room Air 09/13/23 01:26 94 Nasal Cannula 3 09/12/23 22:58 95 Room Air 09/12/23 22:01 94 Room Air 09/12/23 21:31 95 Room Air 09/12/23 21:00 94 Room Air 09/12/23 21:00 09/12/23 20:47 94 Room Air 09/12/23 20:40 95 09/12/23 20:40 09/12/23 20:30 09/12/23 20:30 97 09/12/23 20:11 09/12/23 20:11 98 09/12/23 20:11 96 Room Air 09/12/23 20:10 09/12/23 20:10 96 Room Air 09/12/23 20:00 09/12/23 20:00 95 09/12/23 19:57 09/12/23 19:57 98 Room Air 09/12/23 19:50 94 09/12/23 19:40 100 09/12/23 19:30 97 09/12/23 19:30 09/12/23 19:29 98 Room Air 09/12/23 19:26 09/12/23 19:26 09/12/23 19:25 09/12/23 19:14 100 Room Air Diagnostic Findings Laboratory Results WBC 9.01 K/ul (4.8-10.8) 09/12/23 19:20 RBC 4.74 M/uL (4.20-5.40) 09/12/23 19:20 Hgb 12.9 g/dl (12.0-16.0) 09/12/23 19:20 Hct 40.8 % (37.0-47.0) 09/12/23 19:20 MCV 86.1 fL (80.0-100.0) 09/12/23 19:20 MCH 27.2 pg (25.0-34.0) 09/12/23 19:20 MCHC 31.6 g/dL (32.0-36.0) L 09/12/23 19:20 RDW Std Deviation 45.0 fL (36.4-46.3) 09/12/23 19:20 RDW Coeff of Agueda 14.2 % (11.5-14.5) 09/12/23 19:20 Plt Count 260 K/uL (130-400) 09/12/23 19:20 MPV 10.3 fL (9.4-12.4) 09/12/23 19:20 Immature Gran % (Auto) 0.3 % 09/12/23 19:20 Neut % (Auto) 82.6 % 09/12/23 19:20 Lymph % (Auto) 12.0 % 09/12/23 19:20 Whitley % (Auto) 4.8 % 09/12/23 19:20 Eos % (Auto) 0.0 % 09/12/23 19:20 Baso % (Auto) 0.3 % 09/12/23 19:20 Neut # (Auto) 7.44 K/uL (1.40-6.50) H 09/12/23 19:20 Lymph # (Auto) 1.08 K/uL (1.20-3.40) L 09/12/23 19:20 Whitley # (Auto) 0.43 K/uL (0.11-0.59) 09/12/23 19:20 Eos # (Auto) 0.00 K/uL (0.00-0.50) 09/12/23 19:20 Baso # (Auto) 0.03 K/uL (0.00-0.20) 09/12/23 19:20 Immature Gran # (Auto) 0.03 K/uL (0.01-0.20) 09/12/23 19:20 Sodium 138 mmol/L (136-145) 09/12/23 19:20 Potassium 3.5 mmol/L (3.5-5.1) 09/12/23 19:20 Chloride 106 mmol/L (98-107) 09/12/23 19:20 Carbon Dioxide 22 mmol/L (21-32) 09/12/23 19:20 Anion Gap 10 (3-11) 09/12/23 19:20 BUN 29 mg/dl (6-23) H 09/12/23 19:20 Creatinine 1.04 mg/dl (0.6-1.2) 09/12/23 19:20 Est Cr Clr Drug Dosing Not Reportable 09/12/23 19:20 Est GFR ( Amer) 65.8 ml/min 09/12/23 19:20 Est GFR (Non-Af Amer) 56.7 ml/min 09/12/23 19:20 BUN/Creatinine Ratio 27.9 (10-20) H 09/12/23 19:20 Glucose 112 mg/dl (70-99(Fasting)) H 09/12/23 19:20 Calcium 8.8 mg/dl (8.6-10.3) 09/12/23 19:20 Total Bilirubin 0.4 mg/dl (0.2-1.0) 09/12/23 19:20 AST 16 U/L (13-39) 09/12/23 19:20 ALT 18 U/L (7-52) 09/12/23 19:20 Alkaline Phosphatase 107 U/L (34-104) H 09/12/23 19:20 Total Protein 6.8 gm/dl (6.0-8.3) 09/12/23 19:20 Albumin 3.9 gm/dl (3.4-5.0) 09/12/23 19:20 Globulin 2.9 gm/dl (2.5-4.0) 09/12/23 19:20 Albumin/Globulin Ratio 1.3 (0.9-2) 09/12/23 19:20 Lipase 23 U/L (11-82) 09/12/23 19:20 Urine Color Yellow 09/12/23 19:41 Urine Appearance Cloudy (Clear) A 09/12/23 19:41 Urine pH 5.5 (4.5-7.5) 09/12/23 19:41 Ur Specific [place] 1.020 (1.000-1.030) 09/12/23 19:41 Urine Protein Negative (Negative) 09/12/23 19:41 Urine Glucose (UA) Negative (Negative) 09/12/23 19:41 Urine Ketones Negative (Negative) 09/12/23 19:41 Urine Blood 1+ (Negative) H 09/12/23 19:41 Urine Nitrite Positive (Negative) A 09/12/23 19:41 Urine Bilirubin Negative (Negative) 09/12/23 19:41 Urine Urobilinogen Negative (Negative) 09/12/23 19:41 Ur Leukocyte Esterase 2+ (Negative) H 09/12/23 19:41 Urine WBC (Auto) >30 /hpf (0-5) H 09/12/23 19:41 Urine RBC (Auto) 0-4 /hpf (0-4) 12/21/23 19:41 U Hyaline Cast (Auto) 10-30 /lpf (0-5) H 09/12/23 19:41 U Epithel Cells (Auto) 0-5 /lpf (0-5) 09/12/23 19:41 Urine Bacteria (Auto) 3+ (Negative) H 09/12/23 19:41 Impressions Abdomen/Pelvis CT 09/12/23 19:21 CR Exam(s): CT ABDOMEN + PELVIS With Contrast IV Amt: 89 ml opti 320 EXAM: CT Abdomen and Pelvis With Intravenous Contrast CLINICAL HISTORY: Reason for exam: lower abdominal pain. TECHNIQUE: Axial computed tomography images of the abdomen and pelvis with intravenous contrast. CTDI is 20.71 mGy and DLP is 1111.44 mGy-cm. Automated exposure control was utilized for the study. A dose lowering technique was utilized adhering to the principles of ALARA. CONTRAST: Patient received 89 ml opti 320 of IV contrast COMPARISON: None. FINDINGS: Lung bases: Mild bilateral lower lobe atelectasis. Small foci of ground as opacities versuspattern to the lung bases may indicate pneumonitis versus small airway disease. Mediastinum: Moderate to large hiatal hernia. ABDOMEN: Liver: Multiple low-attenuation structures within the liver with Hounsfield units suggestive of liver cysts, largest seen in the left liver lobe measuring 2.4 cm. Remainder of the liver unremarkable. Gallbladder and bile ducts: Status post cholecystectomy. No ductal dilation. Pancreas: Unremarkable. No mass. No ductal dilation. Spleen: Unremarkable. No splenomegaly. Adrenals: Unremarkable. No mass. Kidneys and ureters: Mild fullness of the left renal collecting system and left renal pelvis suggestive of left UPJ etiology. The left ureter is normal. Stomach and bowel: Multiple loops of small bowel mildly distended which may indicate mild ileus. Due to thickening of small bowel, cannot this with enteritis. Thickening of the wall throughout the right colon and descending colon/sigmoid suggestive of colitis. Diverticulosis throughout the colon diffusely with no signs of diverticulitis. PELVIS: Appendix: Distinct appendix not visualized. Bladder: Unremarkable. No mass. Reproductive: Unremarkable as visualized. ABDOMEN and PELVIS: Intraperitoneal space: Scattered areas of free intraperitoneal air. Mild to moderate free fluid within the pelvis. Bones/joints: Anterolisthesis of L4 and L5 without pars defect. Mild spondylosis and degenerative disease throughout the lumbar spine and bilateral SI joints. No acute fracture. No dislocation. Soft tissues: Left medullary nipple low-attenuation structure measuring 12 mm compatible with simple cysts. Vasculature: Unremarkable. No abdominal aortic aneurysm. Lymph nodes: Unremarkable. No enlarged lymph nodes. IMPRESSION: 1. Scattered free intraperitoneal air which may indicate sequela of recent surgery versus bowel perforation. 2. Moderate to large hiatal hernia. Possible colitis. Mild small bowel distention in the mid low abdomen and pelvis concerning for ileus. Cannot exclude with enteritis. 3. Mild to moderate free fluid in the pelvis. 4. Multiple sub-the left renal collecting system with normal left ureter, cannot exclude left hip joint etiology. Status post cholecystectomy, multiple liver cyst as described. Remainder of abdominal viscera are unremarkable. Communications: Call Doctor Other Electronically signed by: Norma Rebolledo MD 09/12/23 21:22 PM ECG Additional Comments: ECG. Marked sinus bradycardia 44. Code Status & VTE Plan VTE Prophylaxis Plan VTE Prophylaxis will be ordered: Yes
--- OUTSIDE RECORDS SUMMARY | 2023-09-13 03:55 | External Medical Summary | Summary of Care ---
Author Name Unknown Organization [facility] Address [address] [place] [address] Phone [phone] Care Team Providers Care Joinery Patternmaker Name Role Phone Ryder Harris Primary Care Provider [phone] Reason for Visit * Reason Onset Date Comments Health Maintenance 09/11/2023 Encounter Details Date Type Department Care Team (Late st Contact Info) Description 09/11/2023 Telephone Family Practice [facility] [address] [place] [address] Ryder Harris CRNP [address] [place] [address] Health Maintenance Allergies Active Allergy Reactions Criticality Noted Date Comments Pollen Other (Please comment) 01/18/2023 Sinus congestion, fogginess, fatigue documented as of this encounter (statuses as of 09/11/2023) Medications Medication Sig Dispensed Refills Start Date End Date Status OMEPRAZOLE 20 MG PO CPDRIndications:TASHA D (gastroesophageal reflux disease) One pill by mouth once a day 1 hour before the first meal of the day 30 Cap 11 10/24/2013 Active Magnesium-Zinc 133.33-5 MG Oral Tablet Take 1 Tablet by mouth daily. 0 Active Hyaluronic Acid 100 MG Oral Capsule Take 200 mg by mouth daily. 0 Active Escitalopram Oxalate 10 MG Oral Tablet (Lexapro)Indication s:LARISSA (generalized anxiety disorder) Take 1 Tablet by mouth in the morning. 90 Tablet 3 06/11/2023 06/05/2024 Active LORazepam 0.5 MG Oral Tablet (Ativan)Indications :LARISSA (generalized anxiety disorder),Adjustmen t insomnia Take 1 Tablet by mouth at bedtime as needed for Insomnia or Anxiety. 30 Tablet 0 06/12/2023 Active documented as of this encounter (statuses as of 09/11/2023) Active Problems Problem Noted Date Diagnosed Date Reflux esophagitis 10/25/2014 Other atopic dermatitis 08/24/2010 Overview: ICD-10 update of inactive term Asthma, cough variant 07/10/2010 LUNG NODULE - STABLE 12/17/2009 Overview: Chest CT 04/2011: No change. No further f/u needed. Chest CT 06/05/10: 3 mm ground glass opacity LLL Chest CT 11/30/09: 6mm ground glass opacity LLL Allergic rhinitis 12/15/2009 Rosacea 12/28/2008 Benign neoplasm of colon 10/10/2007 ADVANCE DIRECTIVE INFORMATION 03/08/2006 Overview: Pt declines booklet. DIVERTICULOSIS OF COLON 01/10/2004 documented as of this encounter (statuses as of 09/11/2023) Resolved Problems Problem Noted Date Diagnosed Date Resolved Date Asthma with severity to be determined 03/16/2010 07/10/2010 Overview: Per Asthma Taxonomy, 12/13/09 PFT: Normal spirometry with no indication for obstructive or restrictive lung disease. No response to albuterol. ICD-10 update of inactive term Irritable bowel syndrome 10/23/2004 EXTRINSIC ASTHMA, UNSPEC 12/02/2003 Overview: 12/13/09 PFT: Normal spirometry with no indication for obstructive or restrictive lung disease. No response to albuterol. Other allergic rhinitis 12/02/200311/22 Overview: ICD-10 update of inactive term documented as of this encounter (statuses as of 09/11/2023) Immunizations Name Administration Dates Next Due COVID-19 mRNA, LNP-s, No Pre serve, 2-Dose Series ([employer]) 02/02/2021,01/12/2021 Pneumococcal Polysaccharide PPV23 (Pneumovax) 12/15/2008 Seasonal Influenza, Quadriva lent, No Preserve, IM 06/20/2016,06/21/2015 Seasonal Influenza, Recombin ant, RIV4, PF, (Flublock) 09/25/2019 Seasonal Influenza, Split, I IV3, With Preserve, Inj 10/14/2012,09/19/2011,08/01/2010,06/08,09/03/2006 TDAP (age 11 and older)(Adacel) 12/15/2008 Zoster Vaccine Recombinant (Shingrix) 04/03/2023 ,01/18/2023 documented as of this encounter Social History Tobacco Use Types Packs/Day Years Used Date Smoking Tobacco: Never Passive Smoke Exposure: Never Smokeless Tobacco: Never Comments:no passive smoke Alcohol Use Standard Drinks/Week Comments Yes 0 (1 standard drink = 0.6 oz pur e alcohol) rare PHQ-2 Answer Date Recorded PHQ Adult Total Score 2 06/11/2023 Sex and Gender Information Value Date Recorded Sex Assigned at Not on file Gender Identity Not on file Sexual Orientation Not on file Job Start Date Occupation Industry Not on file Not on file Not on file documented as of this encounter Miscellaneous Notes * Telephone Encounter - Soniya BethKORY - 09/11/2023 3:25 PM EST Care Gaps Comprehensive Care Outreach Last Office/Telemedicine Visit: 06/11/2023 (in office), Visit date not found (telemedicine) Next Office Visit: Visit date not found Hemoglobin AIC Results: No results found for: "HEMOGLOBIN A1C" Reviewed Health Maintenance below: Health Maintenance Topic Date Due HIV Screening Never done Hepatitis C Screening Never done Pneumococcal Vaccine: Pediatrics (0 to 5 Years) and At-Risk Patients (6 to 64 Years) (2 - PCV) 12/15/2009 Mammogram 11/04/2015 Cervical Cancer Screening 10/22/2016 COLONOSCOPY-EVERY 3 YRS AGES 18-100 12/21/2016 Diabetes Screening 08/01/2017 Lipid Panel 10/23/2018 DTaP,Tdap,and Td Vaccines (2 - Td or Tdap) 12/15/2018 Influenza Vaccine (FLU shot) (1) 05/24/2023 COVID-19 Vaccine (3 - 2022- season) 2023 Ov 2 months Pap Colon Labs mamm Care Gap Outreach Action Taken: Left message documented in this encounter Plan of Treatment Upcoming Encounters Date Type Department Care Team (Late st Contact Info) Description 11/08/2023 1:00 PM EST Office Visit [facility] [address] [place] [address] Hubert Willett MD [address] [place] [address] 11/15/2023 1:00 PM EST Office Visit [facility] [address] [place] [address] Hubert Willett MD [address] [place] [address] 11/22/2023 1:00 PM EST Office Visit [facility] [address] [place] [address] Hubert Willett MD [address] [place] [address] Health Maintenance Due Date Last Done Comments HIV Screening 1973 Hepatitis C Screening 1976 HPV/Co-Test 1988 Pneumococcal Vaccine: Pediatrics (0 to 5 Years) and At-Risk Patients (6 to 64 Years) (2 - PCV) 12/15/2009 12/15/2008 Mammogram 11/04/2015 11/04/2014, 09/2013, 04/14/2012, Additional history exists Cervical Cancer Screening 10/22/2016 Pap Smear 10/22/2016 10/22/2013, 09/25, 08/31/2010, Additional history exists COLONOSCOPY-EVERY 3 YRS AGES 18-100 12/21/2016 12/21/2013, 12/21/2013, 04/27/2004 Diabetes Screening 08/01/2017 08/01/2014, 0 11/25/2013, 10/23/2013 Lipid Panel 10/23/2018 10/23/2013 DTaP,Tdap,and Td Vaccines (2 - Td or Tdap) 12/15/2018 12/15/2008 COVID-19 Vaccine (3 - 2022- season) 2023 02/02/2021, 01/12/2021 Influenza Vaccine (FLU shot) (#1) 2023 09/25/2019, 06/20/2016, 06/21/2015, Additional history exists Depression Screening 06/11/2024 06/11/2023 Zoster Vaccines Completed 04/03/2023, 01/18/2023 GARDASIL-HPV IMMUNIZATION SERIES Aged Out No longer eligible based on patient's age to complete this topic Hepatitis B Aged Out No longer eligi ble based on patient's age to complete this topic MENINGOCOCCAL (MENACTRA/MENVEO) Aged Out No longer eligible based on patient's age to complete this topic documented as of this encounter Medical Devices Not on filedocumented as of this encounter Care Teams Joinery Patternmaker Relationship Specialty Start Date End Date Ryder Harris CRNP [address] [place] [phone] PCP - General Nurse Practitioner 09/10/23 documented as of this encounter
--- OUTSIDE RECORDS SUMMARY | 2023-09-13 03:55 | External Medical Summary | Summary of Care ---
Author Name Unknown Organization [facility] Address [address] [place] [address] Phone [phone] Care Team Providers Care Coil Connector Repairer Name Role Phone Steven Ryder PABLO Primary Care Provider [phone] Reason for Visit * Reason Comments Follow Up Left knee Encounter Details Date Type Department Care Team (Latest Contact Info) Description 09/10/2023 2:00 PM EST Office Visit Orthopaedics [facility] [address] [employer] [address] [place] [address] Hubert Willett MD [address] [place] [address] Primary osteoarthritis of left knee* Allergies Active Allergy Reactions Criticality Noted Date Comments Pollen Other (Please comment) 01/18/2023 Sinus congestion, fogginess, fatigue documented as of this encounter (statuses as of 09/10/2023) Medications Medication Sig Dispensed Refills Start Date [...] or Anxiety. 30 Tablet 0 06/12/2023 Active Hospital, Clinic, or Other Facility Administered Medication Ordered Dose Route Frequency Start Date End Date Status lidocaine 1% 1 mL - triamcinolone acetonide 40 mg/mL 1 mL inj 2 mLIndications:Primary osteoarthritis of left knee 2 mL IJ ONCE 09/10/2023 09/11/20 Active documented as of this encounter (statuses as of 09/10/2023) Active Problems Problem Noted Date Diagnosed Date [...] as of this encounter (statuses as of 09/10/2023) Resolved Problems Problem Noted Date Diagnosed Date [...] as of this encounter (statuses as of 09/10/2023) Immunizations Name Administration Dates Next Due COVID-19 mRNA, LNP-s, No Pre serve, 2-Dose Series (Pfizer) 02/02/2021,01/12/2021 Pneumococcal Polysaccharide PPV23 (Pneumovax) 12/15/2008 Seasonal [...] on file documented as of this encounter Progress Notes * Hubert Willett MD - 09/10/2023 2:03 PM EST Bella Blanco [id number] Bella Blanco is a 62 year old female who presents for f/u to [facility] for left knee injury/pain. I saw her initially for this on 04/05/2023 Most recent visit was on 05/01/2023 Bella Blanco is here unaccompanied Quality: reviewed and agree with Nursing Notes for HPI elements History: History on 04/05/2023 - Left knee pain. Notes this mostly posterior with deep knee flexion such as squatting. No locking. No instability. States pain. Xrays signed. States ERMA may have been caused by lifting. Hurts to do ADLs such as squatting. Pain comes and goes. Additional history on 05/01/2023 f/u 3weeks post steroid injection left knee.Denies pain at this time. Since that visit: Significant benefit from previous steroid injection performed on 04/05/2023. Pain just returned about 1 month ago and therefore she had 4 months of significant benefit ROS: ROS per HPI otherwise non-contributory Past Medical History: Diagnosis Date Calculus of gallbladder without mention of cholecystitis or obstruction 02/04/09 Laparoscopic cholecystectomy 02/04/09, [facility], Dr. Leon Diverticulitis of colon Other seasonal allergies Family History Problem Relation Age of Onset Diabetes Grandmother (Maternal) Diabetes Mother adult onset Stroke Grandmother (Maternal) No Past Hx None no breast/ovarian/colon cancer Other (dementia [Other]) Father Other (CHF [Other]) Father , 79 No Past Hx Brother No Past Hx Brother No Past Hx Daughter No Past Hx Daughter No Past Hx Daughter No Past Hx Daughter No Past Hx Son No Past Hx Son Allergies Sister allergic rhinitis Social History Socioeconomic History Marital status: Spouse name: Not on file Number of children: 6 Years of education: college Highest education level: Not on file Occupational History 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 Occupation: [employer] Tobacco Use Smoking status: Never Passive exposure: Never Smokeless tobacco: Never Tobacco comments: no passive smoke Vaping Use Vaping Use: Never used Substance and Sexual Activity Alcohol use: Yes Comment: rare Drug use: No Sexual activity: Yes Partners: Male control/protection: Condom Other Topics Concern Service Not Asked Blood Transfusions Not Asked Caffeine Concern Not Asked Occupational Exposure Not Asked Hobby Hazards Not Asked Sleep Concern Not Asked Stress Concern Not Asked Weight Concern Not Asked Special Diet Not Asked Back Care Not Asked Exercise Yes Comment: lift and sculpt class 2-3x/wk Bike Helmet Not Asked Seat Belt Not Asked Self-Exams Yes Comment: breast Social History Narrative [employer] INFORMATION ENVIRONMENTAL HISTORY: Type of Home: One Story Type of Heating System: Heat pump Air Conditioning: Yes Central Basement: Carpeted rooms, No evidence mold, mildew and Dry Home have cockroaches: No Irritants in the home: None Patient's bedroom location: Floor: first Type of scott: Hardwood Beds: Number: 1 Type of beds: Mattress and Box spring Pillows: Number: 1 Type of pillows: Synthetic (hypoallergenic, polyester) Bedroom contains: Bookshelves/Books Pets: 1 dog(s) 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; 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 Entered by: Alverto Gonzalez MD 08/24/2010 Social Determinants of Health Financial Resource Strain: Not on file Food Insecurity: Not on file Transportation Needs: Not on file Physical Activity: Not on file Stress: Not on file Social Connections: Not on file Intimate Partner Violence: Not on file Housing Stability: Not on file Physical Exam Constitutional: Generally well-nourished and in no acute distress Psychiatric: Mood and Affect normal Eyes: EOMI Respiratory: Normal respiratory effort with regular rate and rhythm Radiology (I have personally reviewed the following films): 04/05/2023: Four view x-ray left knee Tricompartmental degenerative change mild - per my interpretation. formal radiology interpretation is as follows: IMPRESSION: 1. No evidence of acute osseous injury. 2. Follow-up with magnetic resonance imaging for further evaluation of meniscal, ligamentous as well as soft tissue structures. Assessment and Plan: 1) Chronic Left knee pain Suspect secondary to DJD and potential meniscal tear. 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 Pain just returned about 1 month ago and therefore she had 4 months of significant benefit Repeat intra-articular steroid injection performed today 09/10/2023 Discussed possibility of viscosupplementation in the future and that repetitive steroid injections over time can speed the development of arthritis. Plan is for her to start viscosupplementation after October 24, 2023. She will have Medicare at that time and authorization is not required. She was to be scheduled for 3 shot series for Euflexxa Procedure note (knee injection), left : Time out: Prior to injection, a time out was called to confirm the administration of appropriate medicine, patient name, procedure and confirm to the best of our ability and knowledge the presence of any necessary risks and benefits. Patient verbalizes understanding. Sterile techinique applied. Skin sterilized with alcohol swab. Knee injected using 1.5 inch, 22 gauge needle. Injected with 1 ml lidocaine 1%, triamcinolone acetonide 40mg/ml 1 ml. Patient tolerated procedure with no significant bleeding or adverse reaction. Patient instructed to call or return to clinic for fever or warmth and redness at injection site for potential infection. Patient also advised as to potential for steroid flare reaction including increased pain and redness at injection site which should be treated with ice and resolve within 24 hours. Hubert Willett MD Primary Care Sports Medicine [facility]opa[facility] [address] [facility] [address] documented in this encounter Nursing Notes * Cee Sheth, RN - 09/10/2023 2:24 PM EST Pt presents today for f/u left knee Pain 04/01. Stiffness with squating. Requesting injection. Last injection 04/05/23. Last within the last month. Cee Sheth RN documented in this encounter Plan of Treatment Upcoming Encounters Date Type Department Care Team (Late st Contact Info) Description 11/08/2023 1:00 PM EST Office Visit [address] [address] Hubert Willett MD [address] [place] [address] 11/15/2023 1:00 PM EST Office Visit [facility] [address] [place] [address] Hubert Willett MD 132 [place] [address] 11/22/2023 1:00 PM EST Office Visit [address] [place] [address] Hubert Willett MD [address] [place] [address] Health Maintenance Due Date Last Done Comments [...] Not on filedocumented as of this encounter Visit Diagnoses Diagnosis Primary osteoarthritis of left knee- Primary Primary localized osteoarthrosis, lower leg documented in this encounter Care Teams Coil Connector Repairer Relationship Specialty Start Date End Date Ryder Harris CRNP [address] [place] [address] PCP - General Nurse Practitioner 09/10/23 documented as of this encounter
--- OUTSIDE RECORDS SUMMARY | 2023-09-13 03:55 | External Medical Summary | Summary of Care ---
Author Name Unknown Organization [facility] Address [address] [place] [address] Phone [phone] Care Team Providers Care Survey Statistician Name Role Phone Steven Ryder PABLO Primary Care Provider [phone] Reason for Visit * Reason Comments Follow Up Left knee Encounter Details Date Type Department Care Team (Latest Contact Info) Description 09/10/2023 2:00 PM EST Office Visit Orthopaedics [facility] [address] [place] [address] Hubert Willett MD [address] [place] [address] Primary osteoarthritis of left knee* Allergies Active [...] left knee 2 mL IJ ONCE 09/10/2023 09/10/20 23 Ended documented as of this encounter (statuses as [...] Influenza, Split, I IV3, With Preserve, Inj 10/14/2012,09/19/2011,08/01/2010,06/08,09/03/2006,08/10/1999 TDAP (age 11 and older)(Adacel) 12/15/2008 Zoster [...] - 09/10/2023 2:03 PM EST Bella Blanco [id number] Bella Blanco is a 62 year old female who presents for f/u to [facility] for left knee [...] cholecystitis or obstruction 02/04/09 Laparoscopic cholecystectomy 02/04/09, [facility], Dr. 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 Entered by: Alverto Gonzalez MD [...] Hubert Willett MD Primary Care Sports Medicine [facility] [address] [facility] [address] documented in this encounter Nursing Notes * [...] Description 11/08/2023 1:00 PM EST Office Visit [facility] [address] [place] [address] Hubert Willett MD 132 [place] [address] 11/15/2023 1:00 PM EST Office Visit [facility] [address] [place] [address] Hubert Willett MD [address] [place] [address] 11/22/2023 1:00 PM EST Office Visit [facility] [address] [place] [address] Hubert Willett MD [address] [place] [address] Health Maintenance Due Date Last Done Comments [...] osteoarthrosis, lower leg documented in this encounter Administered Medications Inactive Administered Medications - up to 3 most recent administrations Medication Order MAR Action Action Date Dose Rate Site lidocaine 1% 1 mL - triamcinolone acetonide 40 mg/mL 1 mL inj 2 mL 2 mL, Injection, ONCE, On Sat09/10/23 at 1515, For 1 dose, Lidocaine 1% 1mL Triamcinolone Acetonide 40 mg/mL 1 mL (Final concentration = 20 mg/mL) REFRIGERATE and SHAKE WELL Given 09/10/2023 3:39 PM EST 2 mL Knee Left documented in this encounter Care Teams Survey Statistician Relationship Specialty Start Date End Date Ryder Harris CRNP [address] [place] [address] PCP - General Nurse Practitioner 09/10/23 documented as of this encounter
--- OUTSIDE RECORDS SUMMARY | 2023-09-13 03:56 | External Medical Summary | Summary of Care ---
Author Name Unknown Organization [facility] Address [address] [place] [address] Phone [phone] Care Team Providers Care Rotary Drier Operator Name Role Phone Unavailable Primary Care Provider Unavailabl e Reason for Referral * Ancillary Services (Within 10 days (routine)) - Authorized Specialty Diagnoses / Procedures Referred By Contac t Referred To Contact Gastroenterology Diagnoses Screening for colon cancer Ryder Harris CRNP [address] [id number] Referral ID Status Reason Start Date Expiration Date Visits Requested Visits Authorized [id number] Authorized Ancillary Services Required 04/03/[phone] Question Answer Referral Priority Within 10 days (routine) Comments ALERT: Do not order for pediatric patients (18 years or younger). Cancel off screen and order PEDS GASTROENTEROLOGY CONSULT (Type: 1 visit only-Evaluate and Treat) The following Pt. Instructions are available: - Gastro Colonoscopy Prep Instructions [[id number]] - Gastro Colonoscopy Prep Instructions (Telugu Version) [[id number]] Go to the Pt. Instructions section within the Visit Navigator to access. Colonoscopy ASGE Guidelines: Postadenoma resection: 1-2 sessile polyps in 2014 of less than 1 cm (5 yr intervals) ADDITIONAL INFORMATION 1. Is the patient on Coumadin? No 2. Is the patient on Pradaxa? No * Evaluate & Treat - Unlimited Visits (Within 10 days (routine)) - Authorized Specialty Diagnoses / Procedures Referred By Contsapna t Referred To Contact Orthopaedic Surgery / Orthopedics Diagnoses Chronic pain of left knee Ryder Harris CRNP [address] [id number] Referral ID Status Reason Start Date Expiration Date Visits Requested Visits Authorized [id number] Authorized Specialty Services Required 04/03/[phone] Question Answer Referral Priority Within 10 days (routine) What body part is the patient being seen for? Thigh/Knee What condition is the patient being seen for? Sprain/Strain/Tear/Other Comments Chronic posterior knee pain- vizcarra's cyst? Reason for Visit * Reason Comments Leg Pain Ongoing to left leg for about 1.5 years - states pain from cyst behind - patient states she cannot squat anymore, also bothers her when going up and down stairs Encounter Details Date Type Department Care Team Description 04/03/[address] [facility] [address] [place] [address] Ryder Harris CRNP [address] [place] [address] Chronic pain of left knee*; Screening for colon cancer; Need for vaccination for zoster Allergies Active Allergy Reactions Severity Noted Date Comments Pollen Other (Please comment) 01/18/2023 Sinus congestion, fogginess, fatigue documented as of this encounter (statuses as of 04/03/2023) Medications Medication Sig Dispensed Refills Start Date End Date Status OMEPRAZOLE 20 MG PO CPDRIndications:GERD (gastroesophageal reflux disease) One pill by mouth once a day 1 hour before the first meal of the day 30 Cap 11 10/24/2013 Active Magnesium-Zinc 133.33-5 MG Oral Tablet Take 1 Tablet by mouth daily. 0 Active Hyaluronic Acid 100 MG Oral Capsule Take 200 mg by mouth daily. 0 Active documented as of this encounter (statuses as of 04/03/2023) Active Problems Problem Noted Date Reflux esophagitis 10/25/2014 Other atopic dermatitis [...] as of this encounter (statuses as of 04/03/2023) Resolved Problems Problem Noted Date Resolved Date Asthma with severity to be determined 03/16/2010 07/10/2010 Overview: Per Asthma Taxonomy, 12/13/09 PFT: Normal spirometry with no indication for obstructive or restrictive lung disease. No response to albuterol. ICD-10 update of inactive term Irritable bowel syndrome 10/23/2004 010 EXTRINSIC ASTHMA, UNSPEC 12/02/2003 010 Overview: 12/13/09 PFT: Normal spirometry with no indication for obstructive or restrictive lung disease. No response to albuterol. Other allergic rhinitis 12/02/2003 12/16/19 10 Overview: ICD-10 update of inactive term documented as of this encounter (statuses as of 04/03/2023) Immunizations Name Administration Dates Next Due COVID-19 mRNA, LNP-s, No Pre serve, 2-Dose Series (Pfizer) 02/02/2021,01/12/2021 Pneumococcal Polysaccharide PPV23 (Pneumovax) 12/15/2008 Seasonal Influenza, Quadriva lent, No Preserve, IM 06/20/2016,06/21/2015 Seasonal Influenza, Recombin ant, RIV4, No Preserve 09/25/2019 Seasonal Influenza, Split, I IV3, With Preserve, Inj 10/14/2012,09/19/2011,08/01/2010,06/08,09/03/2006 TDAP (age 11 and older)(Adacel) 12/15/2008 Zoster Vaccine Recombinant (Shingrix) 04/03/2023 ,01/18/2023 documented as of this encounter Social History Tobacco Use Types Packs/Day Years Used Date Smoking Tobacco: Never Passive Smoke Exposure: Never Smokeless Tobacco: Never Tobacco Cessation:Counseling Given: Not Answered Comments:no passive smoke Alcohol Use Standard Drinks/Week Comments Yes 0 (1 standard drink = 0.6 oz pur e alcohol) rare Sex Assigned at Date Recorded Not on file Job Start Date Occupation Industry Not on file Not on file Not on file documented as of this encounter Last Filed Vital Signs Vital Sign Reading Time Taken Comments Blood Pressure 108/78 04/03/2023 8:55 AM EDT Pulse 76 04/03/2023 8:55 AM EDT Temperature 36.9 C (98.5 F) 04/03/2023 8:55 AM ED T Respiratory Rate 16 04/03/2023 8:55 AM EDT Oxygen Saturation - - Inhaled Oxygen Concentration - - Weight 81.3 kg (179 lb 3.2 oz) 04/03/2023 8:55 A M EDT Height - - Body Mass Index 27.9 01/18/2023 2:22 PM EDT documented in this encounter Progress Notes * SAMY Montalvo - 04/03/2023 9:05 AM EDT Images from the original note were not included. Follow up Family Medicine Visit History of Present Illness Bella Blanco is a very pleasant 62 year old female with PMH listed below presenting with left leg pain . Sharp pain shooting down to left leg with flexion of left knee x 1.5 years. Feels a cyst compressing her nerve. No trauma or injury. Denies lower back pain Had synovial cyst in her back, feels somewhat similar. 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 Leon Diverticulitis of colon Other seasonal allergies Past Surgical History: Procedure Laterality Date , INDUCED BY D&E D&E, after SAB BRAIN ANEURYSM REPR, SIMPLE 09/05 aneurysm - coil procedure COLONOSCOPY, DIAGNOSTIC (RECTUM) 12/21/2013 COLONOSCOPY FLEXIBLE PROXIMAL DIAGNOSTIC performed by Ferdinand Prasad MD at ENDOSCOPY [facility] INJECTION LUMBAR/SACRAL 07/26/2014 INJECTION SPINE LUMBAR OR SACRAL performed by Jonathan Paz DO at OR [facility] LAPAROSCOPY; CHOLECYSTECTOMY 02/04/2009 [facility] SPINE SURGERY PROCEDURE NEC 08/06 lumbar spine cyst exc Outpatient Medications Marked as Taking for the 04/03/23 encounter (Office Visit) with SAMY Montalvo Medication Sig Hyaluronic Acid 100 MG Oral Capsule Take 200 mg by mouth daily. Magnesium-Zinc 133.33-5 MG Oral Tablet Take 1 Tablet by mouth daily. OMEPRAZOLE 20 MG PO CPDR One pill by mouth once a day 1 hour before the first meal of the day Review of patient's allergies indicates: Allergen Reactions Hay Fever [Pollen] Other (Please comment) Sinus congestion, fogginess, fatigue Most Recent Immunizations Administered Date(s) Administered COVID-19 mRNA, LNP-s, No Preserve, 2-Dose Series ([employer]) 02/02/2021 Pneumococcal Polysaccharide PPV23 (Pneumovax) 12/15/2008 Seasonal Influenza, Quadrivalent, No Preserve, IM 06/20/2016 Seasonal Influenza, Recombinant, RIV4, No Preserve 09/25/2019 Seasonal Influenza, Split, IIV3, With Preserve, Inj 10/14/2012 TDAP (age 11 and older)(Adacel) 12/15/2008 Zoster Vaccine Recombinant (Shingrix) 04/03/2023 Review of Systems: Review of Systems Constitutional: Negative for chills and fever. Musculoskeletal: Negative for arthralgias and gait problem. Physical Exam BP 108/78 (BP Site: Left Arm, BP Position: Sitting, BP Cuff Size: Large) | Pulse 76 | Temp 36.9 C(98.5 F) (Tympanic) | Resp 16 | Wt 81.3 kg (179 lb 3.2 oz) | BMI 27.90 kg/m | BSA 1.96 m Physical Exam Constitutional: Appearance: Normal appearance. HENT: Head: Normocephalic. Musculoskeletal: General: No swelling. Cervical back: Neck supple. Left knee: No swelling, effusion or erythema. Decreased range of motion: tenderness w/ flexion. Skin: General: Skin is warm. Neurological: Mental Status: She is alert and oriented to person, place, and time. Psychiatric: Mood and Affect: Mood normal. Assessment and Plan 1. Chronic pain of left knee ?Vizcarra's cyst - XR KNEE 4 OR MORE VIEWS - ORTHOPAEDICS REFERRAL OP 2. Screening for colon cancer - COLONOSCOPY, GI REFERRAL OP 3. Need for vaccination for zoster - ZOSTER VACCINE RECOMB, 2 DOSE, IM (SHINGRIX) Wrap-Up I have advised the patient to call our office with any worsening or new symptoms. I spent a total of 20-29 minutes (exact time 28 mins) on the date of service in preparation, delivery, and documentation of the care provided to Bella Blanco excluding any time spent in the performance of separately billed services. Ryder Harris, MSN, ANIMAL HUMANE AGENT SUPERVISOR [facility] documented in this encounter Nursing Notes * Zeferino Narvaez RN - 04/03/2023 8:55 AM EDT Chief Complaint Patient presents with Leg Pain Ongoing to left leg for about 1.5 years - states pain from cyst behind - patient states she cannot squat anymore, also bothers her when going up and down stairs Pre-Administration Time Out Procedure Performed: Yes Patient Identified (Ask Name/Date of ): Yes Does the patient have a fever greater than 101 degrees today? No Patient allergic to latex? No Has the patient ever fainted after receiving an injection? No VFC Stock: No Immunization(s) verified: Yes, Immunization Name: Shingrix, VIS Sheet(s) given: Yes Verified Side and Site: Yes Verified Shot(s) with Parent(s)/Patient: Yes documented in this encounter Plan of Treatment Upcoming Encounters Date Type Specialty Care Team Description 04/05/2023 Office Visit Orthopedics Hubert Willett MD [address] [place] [address] 05/28/2023 Office Visit Family Medicine Rehka Woods DO [address] [place] [address] 08/20/2023 Hospital Encounter Endoscopy Whitley Arnold MD [address] [place] [address] 08/20/2023 Surgery Endoscopy Whitley Arnold MD [address] [place] [address] COLONOSCOPY FLEXIBLE PROXIMAL DIAGNOSTIC Pending Results Name Type Priority Associated Diagnoses Date /Time XR KNEE 4 OR MORE VIEWS Medical Imaging Routine Chronic pain of left knee 04/03/2023 9:54 AM EDT Scheduled Procedures Name Priority Associated Diagnoses Date/Ti me COLONOSCOPY FLEXIBLE PROXIMAL DIAGNOSTIC Screen for colon cancer 08/20/2023 11:15 AM EST Scheduled Referrals Name Type Priority Associated Diagnoses Order Schedule ORTHOPAEDICS REFERRAL OP Referral Within 10 days (routine) Chronic pain of left knee Ordered: 04/03/2023 COLONOSCOPY, GI REFERRAL OP Referral Within 10 days (routine) Screening for colon cancer Ordered: 04/03/2023 Health Maintenance Due Date Last Done Comments HIV Screening 1973 Hepatitis C Screening 1976 Pneumococcal Vaccine: Pediatrics (0 to 5 Years) and At-Risk Patients (6 to 64 Years) (2 - PCV) 12/15/2009 12/15/2008 Mammogram 11/04/2015 11/04/2014, 09/2013, 04/14/2012, Additional history exists Depression Screening, Annual for Pts 12 and Over 09/08/2016 09/08/2015 COLONOSCOPY-EVERY 3 YRS AGES 18-100 12/21/2016 12/21/2013, 12/21/2013, 04/27/2004 Diabetes Screening 08/01/2017 08/01/2014, 0 11/25/2013, 10/23/2013 Pap Smear 10/22/2018 10/22/2013, 09/25, 08/31/2010, Additional history exists Lipid Panel 10/23/2018 10/23/2013 DTaP,Tdap,and Td Vaccines (2 - Td or Tdap) 12/15/2018 12/15/2008 COVID-19 Vaccine (3 - Pfizer series) 03/30/2021 02/02/2021, 01/12/2021 Influenza Vaccine (FLU shot) (#1) 2023 09/25/2019, 06/20/2016, 06/21/2015, Additional history exists Zoster Vaccines Completed 04/03/2023, 01/18/2023 GARDASIL-HPV IMMUNIZATION [...] as of this encounter Visit Diagnoses Diagnosis Chronic pain of left knee- Primary Pain in joint, lower leg Screening for colon cancer Special screening for malignant neoplasms, colon Need for vaccination for zoster Need for prophylactic vaccination and inoculation against other viral diseases Screen for colon cancer Special screening for malignant neoplasms, colon documented in this encounter"
--- OUTSIDE RECORDS SUMMARY | 2023-09-13 03:56 | External Medical Summary | Summary of Care ---
Author Name Unknown Organization [facility] Address [address] [place] [address] Phone [phone] Care Team Providers Care Shampoo Person Name Role Phone Steven Ryder PABLO Primary Care Provider [phone] Reason for Visit * Reason Comments Follow Up Left knee Encounter Details Date Type Department Care Team (Latest Contact Info) Description 09/10/2023 2:00 PM EST Office Visit Orthopaedics [facility] [address] [place] [address] Hubert Willett MD [address] [place] [address] Primary osteoarthritis of left knee* Allergies Active [...] - 09/10/2023 2:03 PM EST Bella Blanco [id number] Bella Blanco is a 62 year old female who presents for f/u to [facility] Orthopaedics and Sports Medicine for left [...] cholecystitis or obstruction 02/04/09 Laparoscopic cholecystectomy 02/04/09, [facility], Dr. 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 Entered by: Alverto Gonzalez MD 08/24/2010 [...] Willett MD Primary Care Sports Medicine Orthopaedics [facility] [address] [facility] [address] documented in this encounter Nursing Notes * [...] Description 11/08/2023 1:00 PM EST Office Visit [address] [address] Hubert Willett MD [address] [place] [address] 11/15/2023 1:00 PM EST Office Visit [facility] [address] [facility] [place] [address] Hubert Willett MD [address] [place] [address] 11/22/2023 1:00 PM EST Office Visit [address] [place] [address] Hubert Willett MD [address] [place] [address] Health Maintenance Due Date Last Done Comments [...] leg documented in this encounter Care Teams Shampoo Person Relationship Specialty Start Date End Date Ryder Harris CRNP [address] [place] [address] PCP - General Nurse Practitioner 09/10/23 documented as of this encounter
--- OUTSIDE RECORDS SUMMARY | 2023-09-13 03:56 | External Medical Summary | Summary of Care ---
Author Name Unknown Organization [facility] Address [address] [place] [address] Phone [phone] Care Team Providers Care Transmission Supervisor Name Role Phone Unavailable Primary Care Provider Unavailabl e Reason for Visit * Reason Comments NEW PATIENT Left knee pain * Evaluate & Treat - Unlimited Visits (Within 10 days (routine)) - Authorized Specialty Diagnoses / Procedures Referred By Octavio lópez Referred To Contact Orthopaedic Surgery / Orthopedics Diagnoses Chronic pain of left knee Ryder Harris CRNP [address] [facility] [place] [address] Referral ID Status Reason Start Date Expiration Date Visits Requested Visits Authorized [id number] Authorized Specialty Services Required 04/03/[phone] Encounter Details Date Type Department Care Team Description 04/05/[address] [facility] [address] [place] [address] Hubert Willett MD [address] [facility] [place] [address] Primary osteoarthritis of left knee*; Acute pain of left knee Allergies Active Allergy Reactions Severity Noted Date Comments Pollen Other (Please comment) 01/18/2023 Sinus congestion, fogginess, fatigue documented as of this encounter (statuses as of 04/05/2023) Medications Medication Sig Dispensed Refills Start Date [...] 200 mg by mouth daily. 0 Active Hospital, Clinic, or Other Facility Administered Medication Ordered Dose Route Frequency Start Date End Date Status lidocaine 1% 1 mL - triamcinolone acetonide 40 mg/mL 1 mL inj 2 mLIndications:Primary osteoarthritis of left knee 2 mL IJ ONCE 04/05/2023 04/05/20 23 Ended documented as of this encounter (statuses as of 04/05/2023) Active Problems Problem Noted Date Reflux esophagitis [...] as of this encounter (statuses as of 04/05/2023) Resolved Problems Problem Noted Date Resolved Date [...] as of this encounter (statuses as of 04/05/2023) Immunizations Name Administration Dates Next Due COVID-19 [...] Progress Notes * Hubert Willett MD - 04/05/2023 2:33 PM EDT Bella Blanco [id number] Bella Blanco is a 62 year old female who presents for consultation to [facility] Orthopaedics and Sports Medicine for left knee injury/pain. Consult requested by SAMY Montalvo. Bella Blanco is here unaccompanied Quality: reviewed and agree with Nursing Notes for HPI elements History: History - Left knee pain. Notes this mostly posterior with deep knee flexion such as squatting. No locking. No instability. States pain. Xrays signed. States ERMA may have been caused by lifting. Hurts to do ADLs such as squatting. Pain comes and goes. ROS: ROS per HPI otherwise non-contributory Past Medical History: Diagnosis Date Calculus of gallbladder without mention of cholecystitis or obstruction 02/04/09 Laparoscopic cholecystectomy 02/04/09, [facility], Dr. 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 Entered by: Alverto Gonzalez MD [...] respiratory effort with regular rate and rhythm Knee Exam, Bilateral Inspection: Alignment: Normal Bilateral Effusion: Negative Bilateral Palpation: Greatest tenderness was along both the posterior medial and posterior lateral joint line ROM: Flexion/Neutral/Extension: L - 120/0/0, R - 120/0/0 Pain with full flexion Strength: SLR: Extension: L - 5/5, R - 5/5 Flexion: L - 5/5, R - 5/5 Special Tests: MCL: Medial Opening @ 30: Negative Bilateral LCL: Lateral Opening @ 30: Negative Bilateral Meniscus Tests: Abigail - Negative Bilateral Popliteal mass - small left Patellar tests: Domenic's and Grind - Negative Bilateral Crepitus - positive on left Hip exam, bilateral: passive internal and external rotation reproduces no pain. Full ROM B/L Radiology (I have personally reviewed the following films): 04/05/2023: Four view x-ray left knee Tricompartmental degenerative change mild - per my interpretation. Awaiting formal radiology interpretation. Assessment and Plan: 1) Chronic Left knee pain Suspect secondary to DJD and potential meniscal tear. 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 [address] [place] [address] documented in this encounter Nursing Notes * Amanda Aleman ATC - 04/05/2023 2:21 PM EDT Left knee pain. Bakers cyst. States pain. Xrays signed. States ERMA may have been caused by lifting.Hurts to do ADLs such as squatting. Pain comes and goes. documented in this encounter Plan of Treatment Upcoming Encounters Date Type Specialty Care Team Description 05/01/2023 Office Visit Orthopedics Hubert Willett MD [address] [place] [address] 08/20/2023 Hospital Encounter Endoscopy Whitley Arnold MD [address] [place] [address] Scheduled Procedures Name Priority Associated Diagnoses Date/Ti me COLONOSCOPY FLEXIBLE PROXIMAL DIAGNOSTIC Recall Screen for colon cancer Health Maintenance Due Date Last Done Comments HIV Screening 1973 Hepatitis C Screening 1976 Pneumococcal Vaccine: Pediatrics (0 to 5 Years) and At-Risk Patients (6 to 64 Years) (2 - PCV) 12/15/2009 12/15/2008 Mammogram 11/04/2015 11/04/2014, 02/09/2013, 04/14/2012, Additional history exists Depression Screening, Annual [...] knee- Primary Primary localized osteoarthrosis, lower leg Acute pain of left knee documented in this encounter Administered Medications Inactive Administered Medications - up to 3 most recent administrations Medication Order MAR Action Action Date Dose Rate Site lidocaine 1% 1 mL - triamcinolone acetonide 40 mg/mL 1 mL inj 2 mL 2 mL, Injection, ONCE, On Sat04/05/23 at 1530, For 1 dose, Lidocaine 1% 1mL Triamcinolone Acetonide 40 mg/mL 1 mL (Final concentration = 20 mg/mL) REFRIGERATE and SHAKE WELL Given 04/05/2023 3:14 PM EDT 2 mL Knee Left documented in this encounter
--- OUTSIDE RECORDS SUMMARY | 2023-09-13 03:56 | External Medical Summary | Summary of Care ---
Author Name Unknown Organization [facility] Address [address] [place] [address] Phone [phone] Care Team Providers Care Finisher Plate Name Role Phone Unavailable Primary Care Provider Unavailabl e Encounter Details Date Type Department Care Team Description 04/06/2023 Patient Reported Data Patient Survey Ortho [facility] Allergies Active Allergy Reactions Severity Noted Date Comments Pollen Other (Please comment) 01/18/2023 Sinus congestion, fogginess, fatigue documented as of this encounter (statuses as of 04/06/2023) Medications Medication Sig Dispensed Refills Start Date [...] as of this encounter (statuses as of 04/06/2023) Active Problems Problem Noted Date Reflux esophagitis [...] as of this encounter (statuses as of 04/06/2023) Resolved Problems Problem Noted Date Resolved Date [...] as of this encounter (statuses as of 04/06/2023) Immunizations Name Administration Dates Next Due COVID-19 [...] on file documented as of this encounter Plan of Treatment Upcoming Encounters Date Type Specialty Care Team Description 05/01/2023 Office Visit Orthopedics Hubert Willett MD [address] [place] [address] 08/20/2023 Hospital Encounter Endoscopy Whitley Arnold MD [address] [place] [address] Scheduled Procedures Name Priority Associated Diagnoses [...]
--- OUTSIDE RECORDS SUMMARY | 2023-09-13 03:56 | External Medical Summary | Summary of Care ---
Author Name Unknown Organization [facility] Address [address] [facility] [place] [address] Phone [phone] Care Team Providers Care Woodworking Shop Laborer Name Role Phone Unavailable Primary Care Provider Unavailabl e Reason for Visit * Reason Comments Follow Up Left knee Encounter Details Date Type Department Care Team Description 05/01/2023 Office Visit Orthopaedics [facility] [address] [place] [address] Hubert Willett MD [address] [place] [address] Acute pain of left knee*; Primary osteoarthritis of left knee Allergies Active Allergy Reactions Severity Noted Date Comments Pollen Other (Please comment) 01/18/2023 Sinus congestion, fogginess, fatigue documented as of this encounter (statuses as of 05/01/2023) Medications Medication Sig Dispensed Refills Start Date [...] as of this encounter (statuses as of 05/01/2023) Active Problems Problem Noted Date Reflux esophagitis [...] as of this encounter (statuses as of 05/01/2023) Resolved Problems Problem Noted Date Resolved Date [...] as of this encounter (statuses as of 05/01/2023) Immunizations Name Administration Dates Next Due COVID-19 mRNA, LNP-s, No Pre serve, 2-Dose Series (Oxsensis) 02/02/2021,01/12/2021 Pneumococcal Polysaccharide PPV23 (Pneumovax) 12/15/2008 Seasonal [...] Progress Notes * Hubert Willett MD - 05/01/2023 10:31 AM EDT Bella Blanco [id number] Bella Blanco is a 62 year old female who presents for f/u to [facility] for left knee injury/pain. I saw her initially for this on 04/05/2023 Bella Blanco is here unaccompanied Quality: reviewed and agree with Nursing Notes for HPI elements History: History on 04/05/2023 - Left knee pain. Notes this mostly posterior with deep knee flexion such as squatting. No locking. No instability. States pain. Xrays signed. States ERMA may have been caused by lifting. Hurts to do ADLs such as squatting. Pain comes and goes. Since that visit: f/u 3weeks post steroid injection left knee.Denies pain at this time. ROS: ROS per HPI otherwise non-contributory Past Medical History: Diagnosis Date Calculus of gallbladder without mention of cholecystitis or obstruction 02/04/09 Laparoscopic cholecystectomy 02/04/09, [facility], Dr. 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 She is extremely pleased. Will follow-up p.r.n. Hubert Willett MD Primary Care Sports Medicine Orthopaedics [address] [address] documented in this encounter Nursing Notes * Cee Sheth RN - 05/01/2023 10:30 AM EDT f/u 3weeks post steroid injection left knee.Denies pain at this time. Cee Sheth RN documented in this encounter Plan of Treatment Upcoming Encounters Date Type Specialty Care Team Description 08/20/2023 Hospital Encounter Endoscopy Whitley Arnold MD [address] [place] [address] [facility] [place] [address] Scheduled Procedures Name Priority Associated Diagnoses [...] for Pts 12 and Over 09/08/2016 09/08/2015 Cervical Cancer Screening 10/22/2016 Pap Smear 10/22/2016 [...] as of this encounter Visit Diagnoses Diagnosis Acute pain of left knee- Primary Primary osteoarthritis of left knee Primary localized osteoarthrosis, lower leg documented in this encounter
--- OUTSIDE RECORDS SUMMARY | 2023-09-13 03:56 | External Medical Summary | Summary of Care ---
Author Name Unknown Organization [facility] Address [address] [place] [address] Phone [phone] Care Team Providers Care Refuse Driver Name Role Phone Unavailable Primary Care Provider [...] Willett MD [address] [place] [address] 08/20/2023 Hospital Encounter Endoscopy Whitley Arnold MD [...]
--- OUTSIDE RECORDS SUMMARY | 2023-09-13 03:56 | External Medical Summary | Summary of Care ---
Author Name Unknown Organization [facility] Address [address] [facility] [place] [address] Phone [phone] Care Team Providers Care Vp Clinical Name Role Phone Unavailable Primary Care Provider Unavailabl e Reason for Visit * Reason Comments Medication Discussion Lexapro - restarti ng - states she went off about 2 years ago Encounter Details Date Type Department Care Team Description 06/11/2023 Office Visit Family Practice [facility] [address] [place] [address] Ryder Harris CRNP [address] [place] [address] LARISSA (generalized anxiety disorder)*; Adjustment insomnia; Grief Allergies Active Allergy Reactions Severity Noted Date Comments Pollen Other (Please comment) 01/18/2023 Sinus congestion, fogginess, fatigue documented as of this encounter (statuses as of 06/11/2023) Medications Medication Sig Dispensed Refills Start Date End Date Status OMEPRAZOLE 20 MG PO CPDRIndications:G ERD (gastroesophageal reflux disease) One pill by mouth once a day 1 hour before the first meal of the day 30 Cap 11 10/24/2013 Active Magnesium-Zinc 133.33-5 MG Oral Tablet Take 1 Tablet by mouth daily. 0 Active Hyaluronic Acid 100 MG Oral Capsule Take 200 mg by mouth daily. 0 Active LORazepam 0.5 MG Oral Tablet (Ativan)Indicatio ns:LARISSA (generalized anxiety disorder),Adjustm ent insomnia Take 1 Tablet by mouth at bedtime as needed for Insomnia or Anxiety. 30 Tablet 0 06/11/2023 Active Escitalopram Oxalate 10 MG Oral Tablet (Lexapro)Indicati ons:LARISSA (generalized anxiety disorder) Take 1 Tablet by mouth in the morning. 90 Tablet 3 06/11/2023 06/05/2024 Active Escitalopram Oxalate 10 MG Oral Tablet (Lexapro)Indicati ons:LARISSA (generalized anxiety disorder) Take 1 Tablet by mouth in the morning. 30 Tablet 5 06/11/2023 06/11/2023 Discontinued (Refill) documented as of this encounter (statuses as of 06/11/2023) Active Problems Problem Noted Date Reflux esophagitis [...] as of this encounter (statuses as of 06/11/2023) Resolved Problems Problem Noted Date Resolved Date [...] as of this encounter (statuses as of 06/11/2023) Immunizations Name Administration Dates Next Due COVID-19 [...] Sign Reading Time Taken Comments Blood Pressure 124/84 06/11/2023 4:22 PM EDT Pulse 100 06/11/2023 4:22 PM EDT Temperature 37.3 C (99.1 F) 06/11/2023 4:22 PM ED T Respiratory Rate 12 06/11/2023 4:22 PM EDT Oxygen Saturation - - Inhaled Oxygen Concentration - - Weight 80.8 kg (178 lb 3.2 oz) 06/11/2023 4:22 P M EDT Height - - Body Mass Index 27.74 01/18/2023 2:22 PM EDT documented in this encounter Progress Notes * SAMY Montalvo - 06/11/2023 4:54 PM EDT Images from the original note were not included. Follow up Family Medicine Visit History of Present Illness Bella Blanco is a very pleasant 62 year old female with PMH listed below presenting with medication discussion. Her MIL passed recently. She didn't have good relationship with her MIL, but it brought regrets, depression, and anxiety. Crying out in tears all the times. Talking to therapy locally once a week. She remembered being on lexapro and it was helpful, and would like to restart on Lexapro. Denies SI/HI. Having difficulty with sleeping. Eating is ok.Ativan was helpful with sleep/relax in past, requesting short term supply until lexapro started to work for her. 06/11/2023 LARISSA 6 PHQ 2 LARISSA/PHQ is low, but pt thinks she was very conservative to answer those questions. 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 Leon Diverticulitis of colon Other seasonal allergies Past Surgical History: Procedure Laterality Date , INDUCED BY D&E D&E, after SAB BRAIN ANEURYSM REPR, SIMPLE 09/05 aneurysm - coil procedure COLONOSCOPY, DIAGNOSTIC (RECTUM) 12/21/2013 COLONOSCOPY FLEXIBLE PROXIMAL DIAGNOSTIC performed by Ferdinand Prasad MD at ENDOSCOPY [facility] INJECTION LUMBAR/SACRAL 07/26/2014 INJECTION SPINE LUMBAR OR SACRAL performed by Jonathan Paz DO at OR [facility] LAPAROSCOPY; CHOLECYSTECTOMY 02/04/2009 [facility] SPINE SURGERY PROCEDURE NEC 08/06 lumbar spine cyst exc Outpatient Medications Marked as Taking for the 06/11/23 encounter (Office Visit) with SAMY Montalvo Medication [...] COVID-19 mRNA, LNP-s, No Preserve, 2-Dose Series ([employer]) 02/02/2021 Pneumococcal Polysaccharide PPV23 (Pneumovax) 12/15/2008 Seasonal Influenza, Quadrivalent, No Preserve, IM 06/20/2016 Seasonal Influenza, Recombinant, RIV4, PF, (Flublock) 09/25/2019 Seasonal Influenza, Split, IIV3, With Preserve, Inj 10/14/2012 TDAP (age 11 and older)(Adacel) 12/15/2008 Zoster Vaccine Recombinant (Shingrix) 04/03/2023 Review of Systems: Physical Exam BP 124/84 (BP Site: Left Arm, BP Position: Sitting, BP Cuff Size: Large) | Pulse 100 | Temp 37.3 C (99.1 F) (Tympanic) | Resp 12 | Wt 80.8 kg (178 lb 3.2 oz) | BMI 27.74 kg/m | BSA 1.96 m Physical Exam Constitutional: Appearance: Normal appearance. HENT: Head: Normocephalic. Cardiovascular: Rate and Rhythm: Normal rate and regular rhythm. Pulmonary: Effort: Pulmonary effort is normal. Breath sounds: Normal breath sounds. Musculoskeletal: Cervical back: Neck supple. Skin: General: Skin is warm. Neurological: Mental Status: She is alert and oriented to person, place, and time. Psychiatric: Mood and Affect: Mood normal. Affect is tearful. Assessment and Plan 1. LARISSA (generalized anxiety disorder) After discussing risk and benefits, patient decided to start on lexapro and ativan. Consider increase dose - LORazepam 0.5 MG Oral Tablet (Ativan); Take 1 Tablet by mouth at bedtime as needed for Insomnia or Anxiety. Dispense: 30 Tablet; Refill: 0 - Escitalopram Oxalate 10 MG Oral Tablet (Lexapro); Take 1 Tablet by mouth in the morning. Dispense: 90 Tablet; Refill: 3 2. Adjustment insomnia - LORazepam 0.5 MG Oral Tablet (Ativan); Take 1 Tablet by mouth at bedtime as needed for Insomnia or Anxiety. Dispense: 30 Tablet; Refill: 0 3. Grief Wrap-Up I have advised the patient to call our office with any worsening or new symptoms. I spent a total of 20-29 minutes (exact time 25 mins) on the date of service in preparation, delivery, and documentation of the care provided to Bella Blanco excluding any time spent in the performance of separately billed services. GABBY Montalvo, SAMY [facility] [place] documented in this encounter Nursing Notes * Zeferino Narvaez RN - 06/11/2023 4:20 PM EDT Chief Complaint Patient presents with Medication Discussion Lexapro - restarting - states she went off about 2 years ago documented in this encounter Plan of Treatment Upcoming Encounters Date Type Specialty Care Team Description 08/20/2023 Hospital Encounter Endoscopy Whitley Arnold MD [address] [place] [address] [place] [address] Scheduled Procedures Name Priority Associated Diagnoses Date/Ti me COLONOSCOPY FLEXIBLE PROXIMAL DIAGNOSTIC Recall Screen for colon cancer Health Maintenance Due Date Last Done Comments HIV Screening 1973 Hepatitis C Screening 1976 HPV/Co-Test 1988 Pneumococcal Vaccine: Pediatrics (0 to 5 Years) and At-Risk Patients (6 to 64 Years) (2 - PCV) 12/15/2009 12/15/2008 Mammogram 11/04/2015 11/04/2014, 09/2013, 04/14/2012, Additional history exists Depression Screening 09/08/2016 09/08/2015 Cervical Cancer Screening 10/22/2016 Pap [...] as of this encounter Visit Diagnoses Diagnosis LARISSA (generalized anxiety disorder)- Primary Generalized anxiety disorder Adjustment insomnia Transient disorder of initiating or maintaining sleep Grief Adjustment disorder with depressed mood documented in this encounter"
--- OUTSIDE RECORDS SUMMARY | 2023-09-13 03:56 | External Medical Summary | Summary of Care ---
Author Name Unknown Organization [facility] Address [address] [place] [address] Phone [phone] Care Team Providers Care Boilermaker Apprentice Name Role Phone Unavailable Primary Care Provider [...] Willett MD [address] [place] [address] 08/20/2023 Hospital Encounter Endoscopy Whitley Arnold MD [...]
--- OUTSIDE RECORDS SUMMARY | 2023-09-13 03:56 | External Medical Summary | Summary of Care ---
Author Name Unknown Organization [facility] Address [address] [place] [address] Phone [phone] Care Team Providers Care Career Specialist Name Role Phone Rita Gonzalez PA-C Primary Care Provider Encounter Details Date Type Department Care Team Description 03/18/2023 Orders Only Outcomes Research Department [address] [place] [address] Lianne Morrison CHRA [facility] Other*[id number] Allergies Active Allergy Reactions Severity Noted Date Comments Pollen Other (Please comment) 01/18/2023 Sinus congestion, fogginess, fatigue documented as of this encounter (statuses as of 03/18/2023) Medications Medication Sig Dispensed Refills Start Date [...] as of this encounter (statuses as of 03/18/2023) Active Problems Problem Noted Date Reflux esophagitis [...] as of this encounter (statuses as of 03/18/2023) Resolved Problems Problem Noted Date Resolved Date [...] as of this encounter (statuses as of 03/18/2023) Immunizations Name Administration Dates Next Due COVID-19 mRNA, LNP-s, No Pre serve, 2-Dose Series (Openbay) 02/02/2021,01/12/2021 Pneumococcal Polysaccharide PPV23 (Pneumovax) 12/15/2008 Seasonal Influenza, Quadriva lent, No Preserve, IM 06/20/2016,06/21/2015 Seasonal Influenza, Recombin ant, RIV4, No Preserve 09/25/2019 Seasonal Influenza, Split, I IV3, With Preserve, Inj 10/14/2012,09/19/2011,08/01/2010,06/08,09/03/2006 TDAP (age 11 and older)(Adacel) 12/15/2008 Zoster Vaccine Recombinant (Shingrix) 01/18/2023 documented as of this encounter Social History [...] as of this encounter Plan of Treatment Scheduled Orders Name Type Priority Associated Diagnoses Orde r Schedule MYCODE INITIAL ADULT Lab Routine My[facility] Research Other*[id number] Expected: 03/18/2023 (Approximate), Expires: 04/06/2024 Health Maintenance Due Date Last Done Comments [...] (3 - Pfizer series) 03/30/2021 02/02/2021, 01/12/2021 Zoster Vaccines (2 of 2) 03/15/2023 01/18/2023 Influenza Vaccine (FLU shot) (Season Ended) 2023 09/25/2019, 06/20/2016, 06/21/2015, Additional history exists GARDASIL-HPV IMMUNIZATION SERIES Aged Out No longer [...] as of this encounter Visit Diagnoses Diagnosis [facility] Other*[id number] documented in this encounter Care Teams Career Specialist Relationship Specialty Start Date End Date Rita Gonzalez PA-C [address] [place] [address] PCP - General Physician Last Turner 01/08/17 documented as of this encounter
--- OUTSIDE RECORDS SUMMARY | 2023-09-13 03:56 | External Medical Summary | Summary of Care ---
Author Name Unknown Organization [facility] Address [address] [facility] [place] [address] Phone [phone] Care Team Providers Care Scrap Preparer Name Role Phone Unavailable Primary Care Provider Unavailabl e Reason for Visit * Reason Onset Date Comments Medication Problem 06/12/2023 Encounter Details Date Type Department Care Team Description 06/12/2023 Telephone Family Practice [facility] [address] [place] [address] Ryder Harris CRNP [address] [facility] [place] [address] Medication Problem Allergies Active Allergy Reactions Severity Noted Date Comments Pollen Other (Please comment) 01/18/2023 Sinus congestion, fogginess, fatigue documented as of this encounter (statuses as of 06/12/2023) Medications Medication Sig Dispensed Refills Start Date [...] 06/05/2024 Active LORazepam 0.5 MG Oral Tablet (Ativan)Indicatio ns:LARISSA (generalized anxiety disorder),Adjustm ent insomnia Take 1 Tablet by mouth at bedtime as needed for Insomnia or Anxiety. 30 Tablet 0 06/12/2023 Active LORazepam 0.5 MG Oral Tablet (Ativan)Indicatio ns:LARISSA (generalized anxiety disorder),Adjustm ent insomnia Take 1 Tablet by mouth at bedtime as needed for Insomnia or Anxiety. 30 Tablet 0 06/11/2023 06/12/2023 Discontinued (Refill) documented as of this encounter (statuses as of 06/12/2023) Active Problems Problem Noted Date Reflux esophagitis [...] as of this encounter (statuses as of 06/12/2023) Resolved Problems Problem Noted Date Resolved Date [...] as of this encounter (statuses as of 06/12/2023) Immunizations Name Administration Dates Next Due COVID-19 [...] encounter Miscellaneous Notes * Telephone Encounter - SAMY Montalvo - 06/12/2023 10:30 AM EDT Rx Sent "I have reviewed the patient's controlled substance dispensing history in the Prescription Drug Monitoring Program in compliance with the [facility] regulations before prescribing a controlled substance." * Telephone Encounter - Bailey Sutherland LPN - 06/12/2023 9:36 AM EDT Provider to address: Lainey from [facility] calling about the Ativan RX sent yesterday. [facility] does not have it in stock. Lainey called [facility] they do have it in stock. Lainey is requesting RX be sent there. She made pt aware and canceled the RX on her end. Order pending to send to [facility] Andrzej michaels. Reason for Call: Medication Problem Contact: Telephone Call Contact Type: Medication Outcome: pending Total Time including non face to face (minutes): 5 documented in this encounter Plan of Treatment Upcoming Encounters Date Type Specialty Care Team Description 08/20/2023 Hospital Encounter Endoscopy Whitley Arnold MD [address] [place] [address] Scheduled Procedures Name Priority Associated Diagnoses [...] encounter Visit Diagnoses Diagnosis LARISSA (generalized anxiety disorder) Generalized anxiety disorder Adjustment insomnia Transient disorder of initiating or maintaining sleep documented in this encounter
[2023-09-13] MEDS: HYDROmorphone INJ 0.5 MG/0.5 ML SYR IM PRN ×4 (04:16→20:21)
[2023-09-13] MEDS: PIPERACILLIN/TAZOBACTAM 4.5 GM in DEXTROSE 5% MINI-B 100 ML IV SCH ×3 (04:17→20:19)
[2023-09-13] MEDS: FAMOTIDINE 20 MG in SYRINGE 3 ML IV SCH ×2 (09:10→20:19)
[2023-09-13 10:15] LABS: Hematocrit (blood only) 35.6 % (37.0-47.0); Hemoglobin 11.5 g/dl (12.0-16.0); Mean Corpuscular Hemoglobin 27.4 pg (25.0-34.0); Mean Corpuscular Hgb Conc 32.3 g/dL (32.0-36.0); Mean Corpuscular Volume 84.8 fL (80.0-100.0); Platelet Count 221 K/uL (130-400); RDW Coefficient of Variation 14.6 % (11.5-14.5); White Blood Count 10.27 K/ul (4.8-10.8)
[2023-09-13 10:28] LABS: BUN Creatinine Ratio 20.8 (10-20); Calcium 8.1 mg/dl (8.6-10.3); Creatinine Clr Calc Pharmacy 84.1 ml/min; Est GFR (African American) 94.6 ml/min; Est GFR (Non-African American) 81.6 ml/min; Magnesium 1.7 mg/dl (1.7-2.4); Phosphorus 3.7 mg/dl (2.5-4.9); Potassium 4.1 mmol/L (3.5-5.1)
--- NOTE | 2023-09-13 15:42 | Hospitalist Progress Note ---
Date of Service September 13, 2023 Assessment & Plan (1) Perforated viscus: Plan: This is a 62-year-old female with past med significant for allergic rhinitis, asthma cough variant, GERD, diverticulosis of colon presents for lower abdominal pain and found to have perforated viscus s/p surgery currently. Perforated viscus S/p exploratory laparoscopy and found to have sigmoid colon perforation with developing abscess s/p washout and lysis of additions and drain insertion by Dr. Alvarez early this morning Continue IV Zosyn, fluids, analgesics and antiemetics as needed Diet per surgery - remains npo for now Surgery on board GERD Continue IV Pepcid for now DVT prophylaxis SCDs for now DVT Ppx: SCDs for now Code status: FULL Dispo: Admitted to med/surg Patient seen in collaboration with Dr. Avendaño. Please see addendum. Admission and Anticipated Discharge Date Admission Date: September 13, 2023 Supervising Physician Co-Signing Physician Notes Pt seen and examined by me, care coordinated w/ Je Hernadez PA-C, pls refer to her note above for further detail. Pt is s/p exploratory laparoscopy d/t sigmoid colon perforation. Currently laying in bed and feeling much better. Abdomen is soft and mildly tender to palpation, + JORDYN drain. Heart sounds regular, lungs CTAB. Pt is awake, alert oriented answers appropriately. Skin is warm and dry. Cont. IV zosyn, IVF. NPO. Follow cultx from OR. MD Kateryna Subjective Seen in follow up for Exploratory Laparoscopy, Washout, Lysis of Adhesions, Drain Insertion by Dr. Alvarez early this morning. Patient is sitting in bedside chair, appears comfortable. Which more comfortable following surgical procedure but still with some expected postop discomfort. Denies any nausea or vomiting. No fever, chills, lightness, chest pain or shortness of breath, dysuria, no postop flatus. Review of Systems Review of Systems: At least ten systems reviewed and negative except as noted in the HPI. Physical Exam Physical Exam: Gen: WD/WN, NAD, sitting in bedside chair, A&Ox3 HEENT: Normocephalic, atraumatic, conjunctivae moist, sclerae anicteric, mucous membranes moist Lung: Clear to Auscultation bilaterally, no wheezes/rales/rhonchi Heart: Regular rate, regular rhythm, no murmurs, rubs, or gallops Abdomen: Soft,surgical dressing c/d/i, JORDYN drain visualized, +BS x 4 Extremities: no edema Skin: Warm, no rash Results & Data Results & Data Vital Signs (Past 12 Hours) Vital Signs Temp Pulse Resp BP Pulse Ox O2 Del Method O2 Flow Rate 09/13/23 15:00 36.5 C 63 16 94/54 L 94 Room Air 09/13/23 10:58 95 Room Air 09/13/23 10:19 36.3 C L 61 16 97/58 L 94 Room Air 09/13/23 07:48 Room Air, Nasal Cannula 1 09/13/23 07:15 36.9 C 81 16 94/52 L 94 Nasal Cannula 2 09/13/23 05:30 36.7 C 85 17 98/59 L 94 Room Air 09/13/23 04:30 36.6 C 93 H 16 111/68 92 Room Air Laboratory Results Short CBC 09/12/23 09/13/23 Range/Units 19:20 09:18 WBC 9.01 10.27 (4.8-10.8) K/ul Hgb 12.9 11.5 L (12.0-16.0) g/dl Hct 40.8 35.6 L (37.0-47.0) % Plt Count 260 221 (130-400) K/uL BMP 09/12/23 09/13/23 19:20 09:18 Sodium 138 138 Potassium 3.5 4.1 Chloride 106 111 H Carbon Dioxide 22 21 BUN 29 H 16 Creatinine 1.04 0.77 Glucose 112 H 146 H Calcium 8.8 8.1 L Liver Function 09/12/23 Range/Units 19:20 Total Bilirubin 0.4 (0.2-1.0) mg/dl AST 16 (13-39) U/L ALT 18 (7-52) U/L Alkaline Phosphatase 107 H (34-104) U/L Albumin 3.9 (3.4-5.0) gm/dl Urine 09/12/23 Range/Units 19:41 Urine Color Yellow Urine Appearance Cloudy A (Clear) Urine pH 5.5 (4.5-7.5) Ur Specific [place] 1.020 (1.000-1.030) Urine Protein Negative (Negative) Urine Glucose (UA) Negative (Negative) Diagnostic Findings Abdomen/Pelvis CT 09/12/23 19:21 CR Exam(s): CT ABDOMEN + PELVIS With Contrast IV Amt: 89 ml opti 320 EXAM: CT Abdomen and Pelvis With Intravenous Contrast CLINICAL HISTORY: Reason for exam: lower abdominal pain. TECHNIQUE: Axial computed tomography images of the abdomen and pelvis with intravenous contrast. CTDI is 20.71 mGy and DLP is 1111.44 mGy-cm. Automated exposure control was utilized for the study. A dose lowering technique was utilized adhering to the principles of ALARA. CONTRAST: Patient received 89 ml opti 320 of IV contrast COMPARISON: None. FINDINGS: Lung bases: Mild bilateral lower lobe atelectasis. Small foci of ground as opacities versuspattern to the lung bases may indicate pneumonitis versus small airway disease. Mediastinum: Moderate to large hiatal hernia. ABDOMEN: Liver: Multiple low-attenuation structures within the liver with Hounsfield units suggestive of liver cysts, largest seen in the left liver lobe measuring 2.4 cm. Remainder of the liver unremarkable. Gallbladder and bile ducts: Status post cholecystectomy. No ductal dilation. Pancreas: Unremarkable. No mass. No ductal dilation. Spleen: Unremarkable. No splenomegaly. Adrenals: Unremarkable. No mass. Kidneys and ureters: Mild fullness of the left renal collecting system and left renal pelvis suggestive of left UPJ etiology. The left ureter is normal. Stomach and bowel: Multiple loops of small bowel mildly distended which may indicate mild ileus. Due to thickening of small bowel, cannot this with enteritis. Thickening of the wall throughout the right colon and descending colon/sigmoid suggestive of colitis. Diverticulosis throughout the colon diffusely with no signs of diverticulitis. PELVIS: Appendix: Distinct appendix not visualized. Bladder: Unremarkable. No mass. Reproductive: Unremarkable as visualized. ABDOMEN and PELVIS: Intraperitoneal space: Scattered areas of free intraperitoneal air. Mild to moderate free fluid within the pelvis. Bones/joints: Anterolisthesis of L4 and L5 without pars defect. Mild spondylosis and degenerative disease throughout the lumbar spine and bilateral SI joints. No acute fracture. No dislocation. Soft tissues: Left medullary nipple low-attenuation structure measuring 12 mm compatible with simple cysts. Vasculature: Unremarkable. No abdominal aortic aneurysm. Lymph nodes: Unremarkable. No enlarged lymph nodes. IMPRESSION: 1. Scattered free intraperitoneal air which may indicate sequela of recent surgery versus bowel perforation. 2. Moderate to large hiatal hernia. Possible colitis. Mild small bowel distention in the mid low abdomen and pelvis concerning for ileus. Cannot exclude with enteritis. 3. Mild to moderate free fluid in the pelvis. 4. Multiple sub-the left renal collecting system with normal left ureter, cannot exclude left hip joint etiology. Status post cholecystectomy, multiple liver cyst as described. Remainder of abdominal viscera are unremarkable. Communications: Call Doctor Other Electronically signed by: Norma Rebolledo MD 09/12/23 21:22 PM
[2023-09-13] MEDS ORDERED: KETOROLAC 30 MG/ML VIAL IV STA (16:23)
[2023-09-13] MEDS ORDERED: ESCITALOPRAM OXALATE 10 MG TAB PO STA (20:19)
[2023-09-13] MEDS: HYDROmorphone INJ 0.5 MG/0.5 ML SYR IV PRN (23:27)
[2023-09-14] MEDS: PIPERACILLIN/TAZOBACTAM 4.5 GM in DEXTROSE 5% MINI-B 100 ML IV SCH ×3 (04:06→20:37)
[2023-09-14] MEDS: HYDROmorphone INJ 0.5 MG/0.5 ML SYR IV PRN ×5 (04:06→18:25)
--- NOTE | 2023-09-14 06:23 | Electrocardiogram Report ---
Test Reason : Blood Pressure : / mmHG Vent. Rate : 044 BPM Atrial Rate : 044 BPM P-R Int : 144 ms QRS Dur : 096 ms QT Int : 512 ms P-R-T Axes : 068 019 035 degrees QTc Int : 437 ms Marked sinus bradycardia Abnormal ECG When compared with ECG of 01-AUG-2014 00:06, Vent. rate has decreased BY 23 BPM Confirmed by Josiah Cantu ([id number]) on 09/14/2023 6:23:02 AM Referred By: REFERRED SELF Confirmed By:Josiah Cantu
[2023-09-14] MEDS: D5W AND NSS 1,000 ML IV SCH ×3 (07:23→21:55)
[2023-09-14 07:53] LABS: Hematocrit (blood only) 32.5 % (37.0-47.0); Hemoglobin 10.6 g/dl (12.0-16.0); Mean Corpuscular Hemoglobin 27.7 pg (25.0-34.0); Mean Corpuscular Hgb Conc 32.6 g/dL (32.0-36.0); Mean Corpuscular Volume 85.1 fL (80.0-100.0); Mean Platelet Volume 10.1 fL (9.4-12.4); Platelet Count 191 K/uL (130-400); RDW Standard Deviation 46.5 fL (36.4-46.3); Red Blood Count 3.82 M/uL (4.20-5.40); White Blood Count 8.35 K/ul (4.8-10.8)
[2023-09-14 08:25] LABS: BUN Creatinine Ratio 15.7 (10-20); Calcium 8.1 mg/dl (8.6-10.3); Est GFR (African American) 86.4 ml/min; Est GFR (Non-African American) 74.5 ml/min; Magnesium 1.9 mg/dl (1.7-2.4); Phosphorus 2.7 mg/dl (2.5-4.9); Potassium 3.3 mmol/L (3.5-5.1)
[2023-09-14] MEDS: FAMOTIDINE 20 MG in SYRINGE 3 ML IV SCH ×2 (09:11→20:37)
[2023-09-14] MEDS: ESCITALOPRAM OXALATE 10 MG TAB PO SCH ×2 (09:22→23:30)
--- NOTE | 2023-09-14 12:31 | Hospitalist Progress Note ---
Date of Service September 14, 2023 Assessment & Plan (1) Perforated viscus: Plan: This is a 62-year-old female with past med significant for allergic rhinitis, asthma cough variant, GERD, diverticulosis of colon presents for lower abdominal pain and found to have perforated viscus s/p surgery currently. Perforated viscus S/p exploratory laparoscopy and found to have sigmoid colon perforation with developing abscess s/p washout and lysis of additions and drain insertion by Dr. Alvarez early this morning Continue IV Zosyn, fluids, analgesics and antiemetics as needed Diet per surgery - remains npo for now Surgery following closely BP cont. to be on lower side - added iv albumin and increased rate of IVF (surgery notified) Cultx from OR positive for Gram negat. bacilli and Staph species. Cont. IV zosyn, adding vanco for now, follow final cultx results UTI - ucultx posit. for E.coli - cont. zosyn , as above GERD Continue IV Pepcid for now DVT prophylaxis SCDs for now DVT Ppx: SCDs for now Code status: FULL Dispo: Admitted to med/surg Admission and Anticipated Discharge Date Admission Date: September 13, 2023 Subjective Seen in follow up for Exploratory Laparoscopy, Washout, Lysis of Adhesions, Drain Insertion by Dr. Alvarez. Patient is laying in bed,in NAD, appears comfortable. Denies any nausea or vomiting. No fever, chills, chest pain or shortness of breath, + minimal flatus BP continues to be on lower side despite IVF. added albumin, increased IVF rate (surgery notified). cultx from OR positive for staph - added vanco for now until cultx finalized. Review of Systems Review of Systems: All systems reviewed & are unremarkable except as noted in Subjective Physical Exam Physical Exam: Gen: WD/WN, NAD HEENT: Normocephalic, atraumatic, conjunctivae moist, sclerae anicteric, mucous membranes moist Lung: Clear to Auscultation bilaterally, no wheezes/rales/rhonchi Heart: Regular rate, regular rhythm, no murmurs, rubs, or gallops Abdomen: Soft,surgical dressing c/d/i, JORDYN drain visualized- cloudy drainage, +BS x 4 Extremities: no edema, moves extremities Skin: Warm, no rash Results & Data Results & Data Vital Signs (Past 12 Hours) Vital Signs Temp Pulse Resp BP Pulse Ox O2 Del Method 09/14/23 07:20 Room Air 09/14/23 07:14 36.8 C 64 16 113/72 94 Room Air 09/14/23 04:10 36.7 C 73 18 120/73 92 Room Air Laboratory Results 09/14/23 Range/Units 07:26 WBC 8.35 (4.8-10.8) K/ul RBC 3.82 L (4.20-5.40) M/uL Hgb 10.6 L (12.0-16.0) g/dl Hct 32.5 L (37.0-47.0) % MCV 85.1 (80.0-100.0) fL MCH 27.7 (25.0-34.0) pg MCHC 32.6 (32.0-36.0) g/dL RDW Std Deviation 46.5 H (36.4-46.3) fL RDW Coeff of Agued[place] 15.0 H (11.5-14.5) % Plt Count 191 (130-400) K/uL MPV 10.1 (9.4-12.4) fL Sodium 140 (136-145) mmol/L Potassium 3.3 L (3.5-5.1) mmol/L Chloride 111 H (98-107) mmol/L Carbon Dioxide 25 (21-32) mmol/L Anion Gap 4 (3-11) BUN 13 (6-23) mg/dl Creatinine 0.83 (0.6-1.2) mg/dl Est Cr Clr Drug Dosing 78.0 ml/min Est GFR ( Amer) 86.4 ml/min Est GFR (Non-Af Amer) 74.5 ml/min BUN/Creatinine Ratio 15.7 (10-20) Glucose 114 H (70-99(Fasting)) mg/dl Calcium 8.1 L (8.6-10.3) mg/dl Phosphorus 2.7 D (2.5-4.9) mg/dl Magnesium 1.9 (1.7-2.4) mg/dl Medications Administered Current Inpatient Medications Escitalopram Oxalate (Escitalopram Oxalate 10 Mg Tab) 10 mg PO QAM REPLACED BY [facility] Stop: 10/14/23 08:59 Last Admin: 09/14/23 09:22 Dose: Not Given Hydromorphone HCl (Hydromorphone Inj 0.5 Mg/0.5 Ml Syr) 0.5 mg IV Q3H PRN PRN Reason: Pain Stop: 09/27/23 02:37 Last Admin: 09/14/23 10:32 Dose: 0.5 mg Piperacillin Sod/Tazobactam (Sod 4.5 gm/ Dextrose) 100 mls @ 25 mls/hr IV Q8H BALJINDER; Protocol Stop: 09/23/23 03:59 Last Admin: 09/14/23 11:46 Dose: 25 mls/hr Dextrose/Sodium Chloride (D5w And Nss) 1,000 mls @ 125 mls/hr IV .Q8H BALJINDER Stop: 10/13/23 02:44 Last Admin: 09/14/23 07:23 Dose: 125 mls/hr Famotidine 20 mg/ Syringe 5 mls @ 2.5 mls/min IV BID BALJINDER Stop: 10/13/23 08:59 Last Admin: 09/14/23 09:11 Dose: 2.5 mls/min Potassium Chloride (K Berny / Wtr) 10 meq in 100 mls @ 100 mls/hr IV Q1H BALJINDER Stop: 09/14/23 15:29 Ondansetron HCl (Ondansetron Inj 2 Mg/Ml 2 Ml Vial) 4 mg IV Q6H PRN PRN Reason: Nausea Stop: 10/13/23 02:37
[2023-09-14] MEDS: POTASSIUM CHLORIDE / WTR 10 MEQ/100 ML PLCT IV SCH ×3 (13:03→16:16)
[2023-09-14] MEDS ORDERED: ALBUMIN 25% 25 GM/100 ML VIAL IV ONE (15:19)
[2023-09-14] MEDS ORDERED: VANCOMYCIN HCL 1,000 MG in SODIUM CHLORIDE 0.9% 250 ML IV STA (15:21)
[2023-09-14] MEDS ORDERED: VANCOMYCIN CONSULT ACTIVE PRN (15:21)
[2023-09-14] MEDS ORDERED: VANCOMYCIN HCL 2,000 MG in SODIUM CHLORIDE 0.9% 500 ML IV STA (15:42)
--- NOTE | 2023-09-14 15:55 | Surgery Progress Note ---
Date of Service September 14, 2023 Assessment & Plan (1) Perforated viscus: Plan: Assessment: F/U S/P Exploratory Laparoscopy, Washout, Lysis of Adhesions, Drain Insertion , POD 2 pt is stable, sit at chair, good control incision pain. no fever. JORDYN 180 ml cloudy. Continue treatment with IV antibiotic. Keep n.p.o. OOB Repeat the lab tomorrow morning Will follow-up Admission and Anticipated Discharge Date Admission Date: September 13, 2023 Subjective F/U S/P Exploratory Laparoscopy, Washout, Lysis of Adhesions, Drain Insertion , POD 2 pt is stable, sit at chair, good control incision pain. no fever. JORDYN 180 ml cloudy. Physical Exam Constitutional: WD/WN, vitals as above Eyes: PERRL, conjunctivae normal, anicteric sclerae Neck: trachea midline, no thyromegaly Respiratory: normal respiratory effort, lungs clear to auscultation Cardiovascular: RRR, no murmur, no edema Gastrointestinal (Abdomen): soft, mild tenderness at incision site, no rebound pain, no distend, JORDYN intact, all incisions intact, no redness, BS +. Musculoskeletal: no cyanosis or clubbing, extremities motor strength 5/5 Neurologic: patellar DTR's 2+ bilat, sensation intact Psychiatric: A+Ox3, euthymic affect Results & Data Vital Signs (Past 12 Hours) Vital Signs Temp Pulse Resp BP Pulse Ox O2 Del Method 09/14/23 15:30 102/67 09/14/23 14:43 36.6 C 70 14 90/51 L 94 Room Air 09/14/23 07:20 Room Air 09/14/23 07:14 36.8 C 64 16 113/72 94 Room Air 09/14/23 04:10 36.7 C 73 18 120/73 92 Room Air Laboratory Results Lab Results 09/12/23 09/12/23 09/13/23 Range/Units 19:20 19:41 09:18 WBC 9.01 10.27 (4.8-10.8) K/ul RBC 4.74 4.20 (4.20-5.40) M/uL Hgb 12.9 11.5 L (12.0-16.0) g/dl Hct 40.8 35.6 L (37.0-47.0) % MCV 86.1 84.8 (80.0-100.0) fL MCH 27.2 27.4 (25.0-34.0) pg MCHC 31.6 L 32.3 (32.0-36.0) g/dL RDW Std Deviation 45.0 45.0 (36.4-46.3) fL RDW Coeff of Agueda 14.2 14.6 H (11.5-14.5) % Plt Count 260 221 (130-400) K/uL MPV 10.3 10.0 (9.4-12.4) fL Immature Gran % (Auto) 0.3 % Neut % (Auto) 82.6 % Lymph % (Auto) 12.0 % [place] % (Auto) 4.8 % Eos % (Auto) 0.0 % Baso % (Auto) 0.3 % Neut # (Auto) 7.44 H (1.40-6.50) K/uL Lymph # (Auto) 1.08 L (1.20-3.40) K/uL [place] # (Auto) 0.43 (0.11-0.59) K/uL Eos # (Auto) 0.00 (0.00-0.50) K/uL Baso # (Auto) 0.03 (0.00-0.20) K/uL Immature Gran # (Auto) 0.03 (0.01-0.20) K/uL Sodium 138 138 (136-145) mmol/L Potassium 3.5 4.1 (3.5-5.1) mmol/L Chloride 106 111 H (98-107) mmol/L Carbon Dioxide 22 21 (21-32) mmol/L Anion Gap 10 6 (3-11) BUN 29 H 16 (6-23) mg/dl Creatinine 1.04 0.77 (0.6-1.2) mg/dl Est Cr Clr Drug Dosing Not Reportable 84.1 Est GFR ( Amer) 65.8 94.6 ml/min Est GFR (Non-Af Amer) 56.7 81.6 ml/min BUN/Creatinine Ratio 27.9 H 20.8 H (10-20) Glucose 112 H 146 H (70-99(Fasting)) mg/dl Calcium 8.8 8.1 L (8.6-10.3) mg/dl Phosphorus 3.7 (2.5-4.9) mg/dl Magnesium 1.7 (1.7-2.4) mg/dl Total Bilirubin 0.4 (0.2-1.0) mg/dl AST 16 (13-39) U/L ALT 18 (7-52) U/L Alkaline Phosphatase 107 H (34-104) U/L Total Protein 6.8 (6.0-8.3) gm/dl Albumin 3.9 (3.4-5.0) gm/dl Globulin 2.9 (2.5-4.0) gm/dl Albumin/Globulin Ratio 1.3 (0.9-2) Lipase 23 (11-82) U/L Urine Color Yellow Urine Appearance Cloudy A (Clear) Urine pH 5.5 (4.5-7.5) Ur Specific [place] 1.020 (1.000-1.030) Urine Protein Negative (Negative) Urine Glucose (UA) Negative (Negative) Urine Ketones Negative (Negative) Urine Blood 1+ H (Negative) Urine Nitrite Positive A (Negative) Urine Bilirubin Negative (Negative) Urine Urobilinogen Negative (Negative) Ur Leukocyte Esterase 2+ H (Negative) Urine WBC (Auto) >30 H (0-5) /hpf Urine RBC (Auto) 0-4 (0-4) /hpf U Hyaline Cast (Auto) 10-30 H (0-5) /lpf U Epithel Cells (Auto) 0-5 (0-5) /lpf Urine Bacteria (Auto) 3+ H (Negative) 09/14/23 Range/Units 07:26 WBC 8.35 (4.8-10.8) K/ul RBC 3.82 L (4.20-5.40) M/uL Hgb 10.6 L (12.0-16.0) g/dl Hct 32.5 L (37.0-47.0) % MCV 85.1 (80.0-100.0) fL MCH 27.7 (25.0-34.0) pg MCHC 32.6 (32.0-36.0) g/dL RDW Std Deviation 46.5 H (36.4-46.3) fL RDW Coeff of Agueda 15.0 H (11.5-14.5) % Plt Count 191 (130-400) K/uL MPV 10.1 (9.4-12.4) fL Immature Gran % (Auto) % Neut % (Auto) % Lymph % (Auto) % [place] % (Auto) % Eos % (Auto) % Baso % (Auto) % Neut # (Auto) (1.40-6.50) K/uL Lymph # (Auto) (1.20-3.40) K/uL [place] # (Auto) (0.11-0.59) K/uL Eos # (Auto) (0.00-0.50) K/uL Baso # (Auto) (0.00-0.20) K/uL Immature Gran # (Auto) (0.01-0.20) K/uL Sodium 140 (136-145) mmol/L Potassium 3.3 L (3.5-5.1) mmol/L Chloride 111 H (98-107) mmol/L Carbon Dioxide 25 (21-32) mmol/L Anion Gap 4 (3-11) BUN 13 (6-23) mg/dl Creatinine 0.83 (0.6-1.2) mg/dl Est Cr Clr Drug Dosing 78.0 Est GFR ( Amer) 86.4 ml/min Est GFR (Non-Af Amer) 74.5 ml/min BUN/Creatinine Ratio 15.7 (10-20) Glucose 114 H (70-99(Fasting)) mg/dl Calcium 8.1 L (8.6-10.3) mg/dl Phosphorus 2.7 D (2.5-4.9) mg/dl Magnesium 1.9 (1.7-2.4) mg/dl Total Bilirubin (0.2-1.0) mg/dl AST (13-39) U/L ALT (7-52) U/L Alkaline Phosphatase (34-104) U/L Total Protein (6.0-8.3) gm/dl Albumin (3.4-5.0) gm/dl Globulin (2.5-4.0) gm/dl Albumin/Globulin Ratio (0.9-2) Lipase (11-82) U/L Urine Color Urine Appearance (Clear) Urine pH (4.5-7.5) Ur Specific [place] (1.000-1.030) Urine Protein (Negative) Urine Glucose (UA) (Negative) Urine Ketones (Negative) Urine Blood (Negative) Urine Nitrite (Negative) Urine Bilirubin (Negative) Urine Urobilinogen (Negative) Ur Leukocyte Esterase (Negative) Urine WBC (Auto) (0-5) /hpf Urine RBC (Auto) (0-4) /hpf U Hyaline Cast (Auto) (0-5) /lpf U Epithel Cells (Auto) (0-5) /lpf Urine Bacteria (Auto) (Negative)
[2023-09-14] MEDS ORDERED: HYDROmorphone INJ 0.5 MG/0.5 ML SYR IV STA ×2 (19:26→21:12)
[2023-09-14] MEDS: ONDANSETRON INJ 2 MG/ML 2 ML VIAL IV PRN (19:50)
[2023-09-14] MEDS ORDERED: oxyCODONE HCL IR 5 MG TAB (IMMEDIATE RELEASE) PO STA (21:11)
[2023-09-14] MEDS ORDERED: OPTIRAY 320 500ml IV ONE (22:05)
[2023-09-14] MEDS: oxyCODONE HCL IR 5 MG TAB (IMMEDIATE RELEASE) PO PRN (23:28)
--- NOTE | 2023-09-15 01:43 | CT Scan Report ---
Exam(s): CT ABDOMEN + PELVIS With Contrast IV Amt: 88ml EXAM: CT Abdomen and Pelvis With Intravenous Contrast CLINICAL HISTORY: Reason for exam: severe abd pain. recent perforated sigmoid colon. TECHNIQUE: Axial computed tomography images of the abdomen and pelvis with intravenous contrast. CTDI is 22.96 mGy and DLP is 1281.05 mGy-cm. Automated exposure control was utilized for the study. A dose lowering technique was utilized adhering to the principles of ALARA. CONTRAST: Patient received 88ml of IV contrast COMPARISON: 09/12/2023. FINDINGS: Lung bases: Bilateral lower lobe atelectasis. Pleural space: Mild bilateral pleural effusions. Heart: Borderline cardiomegaly. Mediastinum: Mild to moderate hiatal hernia. The stomach is otherwise unremarkable. ABDOMEN: Liver: Multiple low-attenuation structures within the liver, largest seen in the left liver lobe anteriorly measuring total dimension of 3.9 cm consistent with liver cysts. Gallbladder and bile ducts: Status post cholecystectomy with nonspecific biliary distention. No ductal dilation. Pancreas: Unremarkable. No mass. No ductal dilation. Spleen: Unremarkable. No splenomegaly. Adrenals: Unremarkable. No mass. Kidneys and ureters: Mild fullness of the left renal collecting system and left renal pelvis with a normal left ureter consistent with left UPJ etiology, unchanged. Left upper renal pole low-attenuation structure measuring 9.8 mm consistent with a simple cyst. Normal right kidney. Stomach and bowel: There is scattered free intraperitoneal air consistent with known history of perforated sigmoid colon. Multiple loops of small bowel distended up to 3.4 cm suggestive of diffuse ileus versus early/partial small bowel obstruction. Diverticulosis throughout the colon more severe through the sigmoid. No mucosal thickening. PELVIS: Appendix: Normal appendix. Bladder: The urinary bladder is decompressed Via Hurtado catheter. Reproductive: The uterus is anteverted. ABDOMEN and PELVIS: Intraperitoneal space: There is scattered air within the pelvis. No significant fluid collection. Bones/joints: Osteopenia with mild spondylosis like degenerative disease of the spine. Degenerative disease with sclerosis of the pubic symphysis. No acute fracture. No dislocation. Soft tissues: Unremarkable. Vasculature: Unremarkable. No abdominal aortic aneurysm. Lymph nodes: Unremarkable. No enlarged lymph nodes. Tubes, lines and devices: There is a posterior pelvic drainage catheter in place via a right anterior approach. IMPRESSION: 1. Status post posterior pelvic drainage catheter placement with scattered free intraperitoneal air which may be due to recent procedure and/or history of known sigmoid perforation. Diverticulosis throughout the colon more so through the sigmoid. 2. Small bowel dilatation suggestive of ileus versus early or partial small bowel obstruction, zone of transition indeterminate. 3. No acute appendicitis. 4. Mild left hydronephrosis most compatible with left UPJ etiology. Left leg with new + cyst with no further follow-up imaging recommended. 5. Status post cholecystectomy with multiple liver cysts. No further follow-up imaging recommended. 6. Mild bilateral pleural effusions with bilateral lower lobe atelectasis. Electronically signed by: Norma Rebolledo MD 09/15/23 01:41 AM
[2023-09-15] MEDS: ACETAMINOPHEN 325 MG TAB PO PRN ×2 (01:48→07:43)
[2023-09-15 02:08] LABS: BUN Creatinine Ratio 11.6 (10-20); Calcium 8.1 mg/dl (8.6-10.3); Creatinine Clr Calc Pharmacy 93.8 ml/min; Est GFR (African American) 106.6 ml/min; Magnesium 1.6 mg/dl (1.7-2.4); Phosphorus 2.4 mg/dl (2.5-4.9); Potassium 3.3 mmol/L (3.5-5.1)
[2023-09-15 02:21] LABS: Hematocrit (blood only) 33.3 % (37.0-47.0); Hemoglobin 10.5 g/dl (12.0-16.0); Mean Corpuscular Hemoglobin 27.2 pg (25.0-34.0); Mean Corpuscular Hgb Conc 31.5 g/dL (32.0-36.0); Mean Corpuscular Volume 86.3 fL (80.0-100.0); Mean Platelet Volume 9.7 fL (9.4-12.4); Platelet Count 195 K/uL (130-400); RDW Coefficient of Variation 14.8 % (11.5-14.5); RDW Standard Deviation 47.3 fL (36.4-46.3); Red Blood Count 3.86 M/uL (4.20-5.40); White Blood Count 9.76 K/ul (4.8-10.8)
[2023-09-15] MEDS ORDERED: POTASSIUM PHOS 3 MMOL/1 ML INFUSION IV STA ×2 (03:24→07:16)
[2023-09-15] MEDS ORDERED: POTASSIUM PHOSPHATE 21 MMOL in SODIUM CHLORIDE 0.9% 500 ML IV ONE (04:00)
[2023-09-15] MEDS: PIPERACILLIN/TAZOBACTAM 4.5 GM in DEXTROSE 5% MINI-B 100 ML IV SCH ×3 (04:37→19:26)
[2023-09-15] MEDS: MAGNESIUM SULFATE / D5W 1 GM/100 ML BAG IV SCH ×2 (04:44→06:53)
[2023-09-15] MEDS: oxyCODONE HCL IR 5 MG TAB (IMMEDIATE RELEASE) PO PRN ×3 (05:53→18:34)
[2023-09-15] MEDS ORDERED: VANCOMYCIN HCL 1,000 MG in SODIUM CHLORIDE 0.9% 250 ML IV SCH (06:00)
[2023-09-15] MEDS: D5W AND NSS 1,000 ML IV SCH ×2 (06:56→18:25)
[2023-09-15] MEDS ORDERED: POTASSIUM CHLORIDE / WTR 10 MEQ/100 ML PLCT IV SCH (07:15)
[2023-09-15] MEDS ORDERED: MAGNESIUM SULFATE / D5W 1 GM/100 ML BAG IV ONE (07:16)
--- NOTE | 2023-09-15 07:55 | Hospitalist Progress Note ---
Date of Service September 15, 2023 Assessment & Plan (1) Perforated viscus: Plan: This is a 62-year-old female with past med significant for allergic rhinitis, asthma cough variant, GERD, diverticulosis of colon presents for lower abdominal pain and found to have perforated viscus s/p surgery currently. Perforated viscus S/p exploratory laparoscopy and found to have sigmoid colon perforation with developing abscess s/p washout and lysis of additions and drain insertion by Dr. Alvarez early this morning Continue IV Zosyn, fluids, analgesics and antiemetics as needed Diet per surgery - remains npo for now Surgery following closely Cultx from OR positive for Gram negat. bacilli and Staph species. Cont. IV zosyn, added vanco for now, follow final cultx results Overnight pt was having increasing abd pain. CT scan was obtained and showing ileus vs PSBO. In early AM was having nausea/vomiting. Director Credit Risk ordered NG tube. - surgeon was made aware and agreed w/ NGT placement. Currently pt is feeling better. Replace electrolytes, K, Mg - and cont. to monitor UTI - ucultx posit. for E.coli - cont. zosyn , as above GERD Continue IV Pepcid for now DVT prophylaxis SCDs for now DVT Ppx: SCDs for now Code status: FULL Dispo: Admitted to med/surg Admission and Anticipated Discharge Date Admission Date: September 13, 2023 Subjective Seen in follow up for Exploratory Laparoscopy, Washout, Lysis of Adhesions, Drain Insertion by Dr. Alvarez. Overnight pt was having increasing abd pain. CT scan was obtained and showing ileus vs PSBO. In early AM was having nausea/vomiting. Director Credit Risk ordered NG tube. - surgeon was made aware and agreed w/ NGT placement. Currently patient is sitting up in bed,in NAD, appears comfortable. NGT draining. No fever, chills, chest pain or shortness of breath. says she feels better after NGT, had a lot of abd. pain last night. Review of Systems Review of Systems: All systems reviewed & are unremarkable except as noted in Subjective Physical Exam Physical Exam: Gen: WD/WN, NAD HEENT: Normocephalic, atraumatic, conjunctivae moist, sclerae anicteric, mucous membranes moist Lung: Clear to Auscultation bilaterally, no wheezes/rales/rhonchi Heart: Regular rate, regular rhythm, no murmurs, rubs, or gallops Abdomen: Soft,surgical dressing c/d/i, JORDYN drain visualized- cloudy drainage, +BS x 4 Extremities: no edema, moves extremities Skin: Warm, no rash Results & Data Results & Data Vital Signs (Past 12 Hours) Vital Signs Temp Pulse Resp BP Pulse Ox O2 Del Method 09/15/23 07:22 36.7 C 75 16 134/81 92 Room Air 09/14/23 20:49 36.8 C 66 14 115/62 94 Room Air 09/14/23 20:37 Room Air Laboratory Results 09/15/23 09/14/23 Range/Units 01:39 07:26 WBC 9.76 8.35 (4.8-10.8) K/ul RBC 3.86 L 3.82 L (4.20-5.40) M/uL Hgb 10.5 L 10.6 L (12.0-16.0) g/dl Hct 33.3 L 32.5 L (37.0-47.0) % MCV 86.3 85.1 (80.0-100.0) fL MCH 27.2 27.7 (25.0-34.0) pg MCHC 31.5 L 32.6 (32.0-36.0) g/dL RDW Std Deviation 47.3 H 46.5 H (36.4-46.3) fL RDW Coeff of Agueda 14.8 H 15.0 H (11.5-14.5) % Plt Count 195 191 (130-400) K/uL MPV 9.7 10.1 (9.4-12.4) fL Sodium 137 140 (136-145) mmol/L Potassium 3.3 L 3.3 L (3.5-5.1) mmol/L Chloride 110 H 111 H (98-107) mmol/L Carbon Dioxide 22 25 (21-32) mmol/L Anion Gap 5 4 (3-11) BUN 8 13 (6-23) mg/dl Creatinine 0.69 0.83 (0.6-1.2) mg/dl Est Cr Clr Drug Dosing 93.8 78.0 ml/min Est GFR ( Amer) 106.6 86.4 ml/min Est GFR (Non-Af Amer) 92.0 74.5 ml/min BUN/Creatinine Ratio 11.6 15.7 (10-20) Glucose 155 H 114 H (70-99(Fasting)) mg/dl Lactate 0.7 (0.4-2.0) mmol/L Calcium 8.1 L 8.1 L (8.6-10.3) mg/dl Phosphorus 2.4 L 2.7 D (2.5-4.9) mg/dl Magnesium 1.6 L 1.9 (1.7-2.4) mg/dl Medications Administered Current Inpatient Medications Acetaminophen (Acetaminophen 325 Mg Tab) 650 mg PO Q4H PRN PRN Reason: Pain or Fever Stop: 10/15/23 01:21 Last Admin: 09/15/23 07:43 Dose: 650 mg Escitalopram Oxalate (Escitalopram Oxalate 10 Mg Tab) 10 mg PO QAM [facility] Stop: 10/14/23 08:59 Last Admin: 09/14/23 23:30 Dose: 10 mg Hydromorphone HCl (Hydromorphone Inj 0.5 Mg/0.5 Ml Syr) 0.5 mg IV Q3H PRN PRN Reason: Pain Stop: 09/27/23 02:37 Last Admin: 09/14/23 18:25 Dose: 0.5 mg Piperacillin Sod/Tazobactam (Sod 4.5 gm/ Dextrose) 100 mls @ 25 mls/hr IV Q8H [facility]; Protocol Stop: 09/23/23 03:59 Last Admin: 09/15/23 04:37 Dose: 25 mls/hr Dextrose/Sodium Chloride (D5w And Nss) 1,000 mls @ 100 mls/hr IV .Q10H [facility] Stop: 10/13/23 02:44 Last Admin: 09/15/23 06:56 Dose: 100 mls/hr Famotidine 20 mg/ Syringe 5 mls @ 2.5 mls/min IV BID [facility] Stop: 10/13/23 08:59 Last Admin: 09/14/23 20:37 Dose: 2.5 mls/min Vancomycin HCl 1,000 mg/ (Sodium Chloride) 270 mls @ 200 mls/hr IV Q12H [facility] Stop: 09/17/23 05:59 Miscellaneous Information (Vancomycin Consult Active) 1 each N/A UD PRN PRN Reason: Consult Stop: 10/14/23 15:20 Ondansetron HCl (Ondansetron Inj 2 Mg/Ml 2 Ml Vial) 4 mg IV Q6H PRN PRN Reason: Nausea Stop: 10/13/23 02:37 Last Admin: 09/14/23 19:50 Dose: 4 mg Oxycodone HCl (Oxycodone Hcl Ir 5 Mg Tab (Immediate Release)) 5 mg PO Q4H PRN PRN Reason: Breakthrough Pain Stop: 09/28/23 23:12 Last Admin: 09/15/23 05:53 Dose: 5 mg
[2023-09-15] MEDS: FAMOTIDINE 20 MG in SYRINGE 3 ML IV SCH ×2 (08:32→19:25)
--- NOTE | 2023-09-15 08:37 | Surgery Progress Note ---
Date of Service September 15, 2023 Assessment & Plan (1) Perforated viscus: Plan: Assessment: F/U S/P Exploratory Laparoscopy, Washout, Lysis of Adhesions, Drain Insertion , POD 3 pt is doing better, no fever. JORDYN 200 ml cloudy. keep NG tube now, Continue treatment with IV antibiotic. Keep n.p.o. OOB Repeat the lab tomorrow morning Will follow-up Admission and Anticipated Discharge Date Admission Date: September 13, 2023 Subjective F/U S/P Exploratory Laparoscopy, Washout, Lysis of Adhesions, Drain Insertion , POD 3 pt had nausea and vomiting last night, pt had CT scan last night- post-op ileus. NG tube placed, now pt said she feels much better, no significant abdominal pain, NG- 100ml, no fever. JORDYN 200 ml cloudy. WBC normal. Procedure Result Verified Site Gram Stain Final 09/13/23-1047 Gram Stain Result Many WBCs Seen Rare Gram Positive Bacilli Aero/Emilia Cult Preliminary 09/15/23-63 Organism 1 Pseudomonas aeruginosa Quantity Many Sens Sensitivities to Follow Organism 2 Staphylococcus species Quantity Rare Sens Sensitivities to Follow P aerugino RX M.I.C. --- --------- Cefepime S <=2 Ceftazidime S 4 Ciprofloxacin S <=0.25 Gentamicin S <=4 Levofloxacin S <=0.5 Meropenem S <=1 Tobramycin S <=4 Pip/Tazo S <=16 S = SENSITIVE I = INTERMEDIATE R = [place] [address] / Director: Lanre Montiel M.D. Clinical Laboratory Report Name: JACOB RICHARD Acct: [id number] Status: ADM IN : 1960 [place] Date: 09/13/23 Age: 62 Sex: F Dis Date: Loc: Medical/Surgical/Ortho [address] [place] [address]/Bed: N379-2 Spec: [id number] Collected: 09/12/23 Received: 09/12/[address]: Noemy Delgado MD Source: Urine,Clean Catch OV Order: Ordered: Urine Culture Procedure Result Verified Site Urine Culture Final 09/14/23 Organism 1 Escherichia coli [place] Count >100,000 CFU/ml Sens Sensitivities to Follow E coli RX M.I.C. --- --------- Amox/Clav S <=8/4 Ampicillin S <=8 Amp/Sul S <=8/4 Cefazolin S <=2 Cefepime S <=2 Ceftriaxone S <=1 Ciprofloxacin S <=0.25 Ertapenem S <=0.5 Gentamicin S <=4 Levofloxacin S <=0.5 Meropenem S <=1 Nitrofurantoin S <=32 Tobramycin S <=4 Trimeth/Sulfa S <=2/38 Pip/Tazo S <=16 S = SENSITIVE I = INTERMEDIATE R = RESISTANT Physical Exam Constitutional: WD/WN, vitals as above Eyes: PERRL, conjunctivae normal, anicteric sclerae Neck: trachea midline, no thyromegaly Respiratory: normal respiratory effort, lungs clear to auscultation Cardiovascular: RRR, no murmur, no edema Gastrointestinal (Abdomen): soft, mild tenderness at incision sites, no rebound pain, no distend, BS +, all incisions intact, no redness. Musculoskeletal: no cyanosis or clubbing, extremities motor strength 5/5 Neurologic: patellar DTR's 2+ bilat, sensation intact Psychiatric: A+Ox3, euthymic affect Results & Data Vital Signs (Past 12 Hours) Vital Signs Temp Pulse Resp BP Pulse Ox O2 Del Method 09/15/23 07:22 36.7 C 75 16 134/81 92 Room Air 09/14/23 20:49 36.8 C 66 14 115/62 94 Room Air Laboratory Results Lab Results 09/12/23 09/12/23 09/13/23 Range/Units 19:20 19:41 09:18 WBC 9.01 10.27 (4.8-10.8) K/ul RBC 4.74 4.20 (4.20-5.40) M/uL Hgb 12.9 11.5 L (12.0-16.0) g/dl Hct 40.8 35.6 L (37.0-47.0) % MCV 86.1 84.8 (80.0-100.0) fL MCH 27.2 27.4 (25.0-34.0) pg MCHC 31.6 L 32.3 (32.0-36.0) g/dL RDW Std Deviation 45.0 45.0 (36.4-46.3) fL RDW Coeff of Agueda 14.2 14.6 H (11.5-14.5) % Plt Count 260 221 (130-400) K/uL MPV 10.3 10.0 (9.4-12.4) fL Immature Gran % (Auto) 0.3 % Neut % (Auto) 82.6 % Lymph % (Auto) 12.0 % [place] % (Auto) 4.8 % Eos % (Auto) 0.0 % Baso % (Auto) 0.3 % Neut # (Auto) 7.44 H (1.40-6.50) K/uL Lymph # (Auto) 1.08 L (1.20-3.40) K/uL Stephenson # (Auto) 0.43 (0.11-0.59) K/uL Eos # (Auto) 0.00 (0.00-0.50) K/uL Baso # (Auto) 0.03 (0.00-0.20) K/uL Immature Gran # (Auto) 0.03 (0.01-0.20) K/uL Sodium 138 138 (136-145) mmol/L Potassium 3.5 4.1 (3.5-5.1) mmol/L Chloride 106 111 H (98-107) mmol/L Carbon Dioxide 22 21 (21-32) mmol/L Anion Gap 10 6 (3-11) BUN 29 H 16 (6-23) mg/dl Creatinine 1.04 0.77 (0.6-1.2) mg/dl Est Cr Clr Drug Dosing Not Reportable 84.1 Est GFR ( Amer) 65.8 94.6 ml/min Est GFR (Non-Af Amer) 56.7 81.6 ml/min BUN/Creatinine Ratio 27.9 H 20.8 H (10-20) Glucose 112 H 146 H (70-99(Fasting)) mg/dl Lactate (0.4-2.0) mmol/L Calcium 8.8 8.1 L (8.6-10.3) mg/dl Phosphorus 3.7 (2.5-4.9) mg/dl Magnesium 1.7 (1.7-2.4) mg/dl Total Bilirubin 0.4 (0.2-1.0) mg/dl AST 16 (13-39) U/L ALT 18 (7-52) U/L Alkaline Phosphatase 107 H (34-104) U/L Total Protein 6.8 (6.0-8.3) gm/dl Albumin 3.9 (3.4-5.0) gm/dl Globulin 2.9 (2.5-4.0) gm/dl Albumin/Globulin Ratio 1.3 (0.9-2) Lipase 23 (11-82) U/L Urine Color Yellow Urine Appearance Cloudy A (Clear) Urine pH 5.5 (4.5-7.5) Ur Specific [place] 1.020 (1.000-1.030) Urine Protein Negative (Negative) Urine Glucose (UA) Negative (Negative) Urine Ketones Negative (Negative) Urine Blood 1+ H (Negative) Urine Nitrite Positive A (Negative) Urine Bilirubin Negative (Negative) Urine Urobilinogen Negative (Negative) Ur Leukocyte Esterase 2+ H (Negative) Urine WBC (Auto) >30 H (0-5) /hpf Urine RBC (Auto) 0-4 (0-4) /hpf U Hyaline Cast (Auto) 10-30 H (0-5) /lpf U Epithel Cells (Auto) 0-5 (0-5) /lpf Urine Bacteria (Auto) 3+ H (Negative) 09/14/23 09/15/23 Range/Units 07:26 01:39 WBC 8.35 9.76 (4.8-10.8) K/ul RBC 3.82 L 3.86 L (4.20-5.40) M/uL Hgb 10.6 L 10.5 L (12.0-16.0) g/dl Hct 32.5 L 33.3 L (37.0-47.0) % MCV 85.1 86.3 (80.0-100.0) fL MCH 27.7 27.2 (25.0-34.0) pg MCHC 32.6 31.5 L (32.0-36.0) g/dL RDW Std Deviation 46.5 H 47.3 H (36.4-46.3) fL RDW Coeff of Agueda 15.0 H 14.8 H (11.5-14.5) % Plt Count 191 195 (130-400) K/uL MPV 10.1 9.7 (9.4-12.4) fL Immature Gran % (Auto) % Neut % (Auto) % Lymph % (Auto) % Stephenson % (Auto) % Eos % (Auto) % Baso % (Auto) % Neut # (Auto) (1.40-6.50) K/uL Lymph # (Auto) (1.20-3.40) K/uL [place] # (Auto) (0.11-0.59) K/uL Eos # (Auto) (0.00-0.50) K/uL Baso # (Auto) (0.00-0.20) K/uL Immature Gran # (Auto) (0.01-0.20) K/uL Sodium 140 137 (136-145) mmol/L Potassium 3.3 L 3.3 L (3.5-5.1) mmol/L Chloride 111 H 110 H (98-107) mmol/L Carbon Dioxide 25 22 (21-32) mmol/L Anion Gap 4 5 (3-11) BUN 13 8 (6-23) mg/dl Creatinine 0.83 0.69 (0.6-1.2) mg/dl Est Cr Clr Drug Dosing 78.0 93.8 Est GFR ( Amer) 86.4 106.6 ml/min Est GFR (Non-Af Amer) 74.5 92.0 ml/min BUN/Creatinine Ratio 15.7 11.6 (10-20) Glucose 114 H 155 H (70-99(Fasting)) mg/dl Lactate 0.7 (0.4-2.0) mmol/L Calcium 8.1 L 8.1 L (8.6-10.3) mg/dl Phosphorus 2.7 D 2.4 L (2.5-4.9) mg/dl Magnesium 1.9 1.6 L (1.7-2.4) mg/dl Total Bilirubin (0.2-1.0) mg/dl AST (13-39) U/L ALT (7-52) U/L Alkaline Phosphatase (34-104) U/L Total Protein (6.0-8.3) gm/dl Albumin (3.4-5.0) gm/dl Globulin (2.5-4.0) gm/dl Albumin/Globulin Ratio (0.9-2) Lipase (11-82) U/L Urine Color Urine Appearance (Clear) Urine pH (4.5-7.5) Ur Specific [place] (1.000-1.030) Urine Protein (Negative) Urine Glucose (UA) (Negative) Urine Ketones (Negative) Urine Blood (Negative) Urine Nitrite (Negative) Urine Bilirubin (Negative) Urine Urobilinogen (Negative) Ur Leukocyte Esterase (Negative) Urine WBC (Auto) (0-5) /hpf Urine RBC (Auto) (0-4) /hpf U Hyaline Cast (Auto) (0-5) /lpf U Epithel Cells (Auto) (0-5) /lpf Urine Bacteria (Auto) (Negative) Diagnostic Findings Exam(s): CT ABDOMEN + PELVIS With Contrast IV Amt: 88ml EXAM: CT Abdomen and Pelvis With Intravenous Contrast CLINICAL HISTORY: Reason for exam: severe abd pain. recent perforated sigmoid colon. TECHNIQUE: Axial computed tomography images of the abdomen and pelvis with intravenous contrast. CTDI is 22.96 mGy and DLP is 1281.05 mGy-cm. Automated exposure control was utilized for the study. A dose lowering technique was utilized adhering to the principles of ALARA. CONTRAST: Patient received 88ml of IV contrast COMPARISON: 09/12/2023. FINDINGS: Lung bases: Bilateral lower lobe atelectasis. Pleural space: Mild bilateral pleural effusions. Heart: Borderline cardiomegaly. Mediastinum: Mild to moderate hiatal hernia. The stomach is otherwise unremarkable. ABDOMEN: Liver: Multiple low-attenuation structures within the liver, largest seen in the left liver lobe anteriorly measuring total dimension of 3.9 cm consistent with liver cysts. Gallbladder and bile ducts: Status post cholecystectomy with nonspecific biliary distention. No ductal dilation. Pancreas: Unremarkable. No mass. No ductal dilation. Spleen: Unremarkable. No splenomegaly. Adrenals: Unremarkable. No mass. Kidneys and ureters: Mild fullness of the left renal collecting system and left renal pelvis with a normal left ureter consistent with left UPJ etiology, unchanged. Left upper renal pole low-attenuation structure measuring 9.8 mm consistent with a simple cyst. Normal right kidney. Stomach and bowel: There is scattered free intraperitoneal air consistent with known history of perforated sigmoid colon. Multiple loops of small bowel distended up to 3.4 cm suggestive of diffuse ileus versus early/partial small bowel obstruction. Diverticulosis throughout the colon more severe through the sigmoid. No mucosal thickening. PELVIS: Appendix: Normal appendix. Bladder: The urinary bladder is decompressed Via Hurtado catheter. Reproductive: The uterus is anteverted. ABDOMEN and PELVIS: Intraperitoneal space: There is scattered air within the pelvis. No significant fluid collection. Bones/joints: Osteopenia with mild spondylosis like degenerative disease of the spine. Degenerative disease with sclerosis of the pubic symphysis. No acute fracture. No dislocation. Soft tissues: Unremarkable. Vasculature: Unremarkable. No abdominal aortic aneurysm. Lymph nodes: Unremarkable. No enlarged lymph nodes. Tubes, lines and devices: There is a posterior pelvic drainage catheter in place via a right anterior approach. IMPRESSION: 1. Status post posterior pelvic drainage catheter placement with scattered free intraperitoneal air which may be due to recent procedure and/or history of known sigmoid perforation. Diverticulosis throughout the colon more so through the sigmoid. 2. Small bowel dilatation suggestive of ileus versus early or partial small bowel obstruction, zone of transition indeterminate. 3. No acute appendicitis. 4. Mild left hydronephrosis most compatible with left UPJ etiology. Left leg with new + cyst with no further follow-up imaging recommended. 5. Status post cholecystectomy with multiple liver cysts. No further follow-up imaging recommended. 6. Mild bilateral pleural effusions with bilateral lower lobe atelectasis. Electronically signed by: Norma Rebolledo MD 09/15/23 01:41 AM Dictated: 09/15/23140 Transcribed: 09/15/23140
--- NOTE | 2023-09-15 08:48 | XRay Report ---
KUB HISTORY: ng tube placement COMPARISON: Abdomen and pelvis CT 09/14/2023. FINDINGS: Nasogastric tube terminates in the stomach. Cardiomegaly and mild congestive changes noted. Small amount of pneumoperitoneum, unchanged. Prior cholecystectomy. Mildly dilated gas-filled loops of small bowel is partially visualized within the upper abdomen. IMPRESSION: 1. Nasogastric tube terminates in the stomach. 2. Small amount of pneumoperitoneum, unchanged. 3. Mildly dilated gas-filled loops of small bowel are partially visualized within the upper abdomen. 4. Cardiomegaly and mild pulmonary edema. ACT 112: Negative or not required by law. Electronically signed by: Fred Troy M.D. 09/15/2023 8:47 AM
--- NOTE | 2023-09-15 12:06 | Pharmacy Report ---
Pharmacy PK ABX Note - Date of Service September 15, 2023 - Assessment and Plan Assessment 62 year old F receiving vancomycin/zosyn for treatment of perforated viscous/uti. Pertinent microbiologic data includes: abdomen culture growing Pseudomonas + staph species. Urine culture with E. coli. Vancomycin entered empirically while awaiting staph identification. Plan Vancomycin * Loading dose: 2000 mg IV x 1 * Maintenance dose: 1250 mg IV every 12 hours * Regimen is predicted to achieve target AUC/GEORGIE of 400-600 mg/L.hr * Random level to be ordered if continued >48 hours Pharmacy will continue to follow and will adjust dose/frequency as necessary. Thank you. Pharmacy has transitioned to AUC monitoring for vancomycin. AUC/GEORGIE is the preferred PK/PD target and is associated with decreased risk of nephrotoxicity compared to traditional trough targets.
[2023-09-15] MEDS: HYDROmorphone INJ 0.5 MG/0.5 ML SYR IV PRN ×2 (13:52→19:25)
[2023-09-15] MEDS ORDERED: CHLORASEPTIC (PHENOL) 1.4% SOLN 180 ML BTL MT PRN (21:34)
[2023-09-15] MEDS: VANCOMYCIN HCL 1,250 MG in SODIUM CHLORIDE 0.9% 250 ML IV SCH (22:16)
[2023-09-16] MEDS: HYDROmorphone INJ 0.5 MG/0.5 ML SYR IV PRN ×5 (00:07→23:14)
[2023-09-16] MEDS: D5W AND NSS 1,000 ML IV SCH (03:57)
[2023-09-16] MEDS: PIPERACILLIN/TAZOBACTAM 4.5 GM in DEXTROSE 5% MINI-B 100 ML IV SCH ×3 (03:58→20:34)
[2023-09-16 06:51] LABS: Hematocrit (blood only) 34.9 % (37.0-47.0); Hemoglobin 11.3 g/dl (12.0-16.0); Mean Corpuscular Hemoglobin 27.4 pg (25.0-34.0); Mean Corpuscular Hgb Conc 32.4 g/dL (32.0-36.0); Mean Corpuscular Volume 84.7 fL (80.0-100.0); Platelet Count 221 K/uL (130-400); RDW Coefficient of Variation 14.3 % (11.5-14.5); Red Blood Count 4.12 M/uL (4.20-5.40); White Blood Count 9.66 K/ul (4.8-10.8)
[2023-09-16 07:04] LABS: BUN Creatinine Ratio 8.5 (10-20); Calcium 8.2 mg/dl (8.6-10.3); Creatinine Clr Calc Pharmacy 91.2 ml/min; Est GFR (African American) 104.3 ml/min; Magnesium 1.9 mg/dl (1.7-2.4); Potassium 3.1 mmol/L (3.5-5.1)
--- NOTE | 2023-09-16 07:58 | Hospitalist Progress Note ---
Date of Service September 16, 2023 Assessment & Plan (1) Perforated viscus: Plan: This is a 62-year-old female with past med significant for allergic rhinitis, asthma cough variant, GERD, diverticulosis of colon presents for lower abdominal pain and found to have perforated viscus s/p surgery currently. Perforated viscus S/p exploratory laparoscopy and found to have sigmoid colon perforation with developing abscess s/p washout and lysis of additions and drain insertion by Dr. Alvarez early this morning Continue IV Zosyn, fluids, analgesics and antiemetics as needed Diet per surgery - remains npo for now Surgery following closely Cultx from OR positive for Gram negat. bacilli and Staph species. - Pseudomonas and MSSA - Cont. IV zosyn, added vanco for now, will further discuss w/ surgery 09/15 Overnight pt was having increasing abd pain. CT scan was obtained and showing ileus vs PSBO. In early AM was having nausea/vomiting. Elementary Supervisor ordered NG tube. - surgeon was made aware and agreed w/ NGT placement. 09/16 Pt with NGT tube placed and green liquid output. Also JORDYN output w/ green liquid. Pt is feeling well overall, says she had a good night but feels more bloated. No flatus. Replace electrolytes, K, Mg - and cont. to monitor UTI - ucultx posit. for E.coli - on zosyn , as above GERD Continue IV Pepcid for now DVT prophylaxis SCDs for now DVT Ppx: SCDs for now Code status: FULL Dispo: Admitted to med/surg Admission and Anticipated Discharge Date Admission Date: September 13, 2023 Subjective Seen in follow up for Exploratory Laparoscopy, Washout, Lysis of Adhesions, Drain Insertion by Dr. Alvarez. Currently sitting up in bed in NAD, NGT draining green liquid Pt reports she feels more bloated JORDYN drain with also greenish liquid No fever, chills, chest pain or shortness of breath. Not passing flatus Discussed w/ surgery over tiger text Review of Systems Review of Systems: All systems reviewed & are unremarkable except as noted in Subjective Physical Exam Physical Exam: Gen: WD/WN, NAD HEENT: Normocephalic, atraumatic, conjunctivae moist, sclerae anicteric, mucous membranes moist Lung: Clear to Auscultation bilaterally, no wheezes/rales/rhonchi Heart: Regular rate, regular rhythm, no murmurs, rubs, or gallops Abdomen: Soft,mildly distended, surgical dressing c/d/i, JORDYN drain visualized + greenish liquid Extremities: no edema, moves extremities Skin: Warm, no rash Results & Data Results & Data Vital Signs (Past 12 Hours) Vital Signs Temp Pulse Resp BP Pulse Ox O2 Del Method 09/16/23 07:03 36.6 C 64 16 142/80 H 93 Room Air Laboratory Results 09/16/23 Range/Units 06:02 WBC 9.66 (4.8-10.8) K/ul RBC 4.12 L (4.20-5.40) M/uL Hgb 11.3 L (12.0-16.0) g/dl Hct 34.9 L (37.0-47.0) % MCV 84.7 (80.0-100.0) fL MCH 27.4 (25.0-34.0) pg MCHC 32.4 (32.0-36.0) g/dL RDW Std Deviation 44.0 (36.4-46.3) fL RDW Coeff of Agueda 14.3 (11.5-14.5) % Plt Count 221 (130-400) K/uL MPV 10.0 (9.4-12.4) fL Sodium 138 (136-145) mmol/L Potassium 3.1 L (3.5-5.1) mmol/L Chloride 108 H (98-107) mmol/L Carbon Dioxide 24 (21-32) mmol/L Anion Gap 6 (3-11) BUN 6 (6-23) mg/dl Creatinine 0.71 (0.6-1.2) mg/dl Est Cr Clr Drug Dosing 91.2 ml/min Est GFR ( Amer) 104.3 ml/min Est GFR (Non-Af Amer) 90.0 ml/min BUN/Creatinine Ratio 8.5 L (10-20) Glucose 141 H (70-99(Fasting)) mg/dl Calcium 8.2 L (8.6-10.3) mg/dl Phosphorus 3.0 (2.5-4.9) mg/dl Magnesium 1.9 (1.7-2.4) mg/dl Medications Administered Current Inpatient Medications Acetaminophen (Acetaminophen 325 Mg Tab) 650 mg PO Q4H PRN PRN Reason: Pain or Fever Stop: 10/15/23 01:21 Last Admin: 09/15/23 07:43 Dose: 650 mg Escitalopram Oxalate (Escitalopram Oxalate 10 Mg Tab) 10 mg PO QAM [facility] Stop: 10/14/23 08:59 Last Admin: 09/14/23 23:30 Dose: 10 mg Hydromorphone HCl (Hydromorphone Inj 0.5 Mg/0.5 Ml Syr) 0.5 mg IV Q3H PRN PRN Reason: Pain Stop: 09/27/23 02:37 Last Admin: 09/16/23 04:05 Dose: 0.5 mg Piperacillin Sod/Tazobactam (Sod 4.5 gm/ Dextrose) 100 mls @ 25 mls/hr IV Q8H [facility]; Protocol Stop: 09/23/23 03:59 Last Admin: 09/16/23 03:58 Dose: 25 mls/hr Dextrose/Sodium Chloride (D5w And Nss) 1,000 mls @ 100 mls/hr IV .Q10H [facility] Stop: 10/13/23 02:44 Last Admin: 09/16/23 03:57 Dose: 100 mls/hr Famotidine 20 mg/ Syringe 5 mls @ 2.5 mls/min IV BID [facility] Stop: 10/13/23 08:59 Last Admin: 09/15/23 19:25 Dose: 2.5 mls/min Vancomycin HCl 1,250 mg/ (Sodium Chloride) 275 mls @ 200 mls/hr IV Q12H [facility] Stop: 09/17/23 05:59 Last Infusion: 09/16/23 00:08 Dose: Infused Potassium Chloride (K Berny / Wtr) 10 meq in 100 mls @ 100 mls/hr IV Q1H [facility] Stop: 09/16/23 10:59 Miscellaneous Information (Vancomycin Consult Active) 1 each N/A UD PRN PRN Reason: Consult Stop: 10/14/23 15:20 Ondansetron HCl (Ondansetron Inj 2 Mg/Ml 2 Ml Vial) 4 mg IV Q6H PRN PRN Reason: Nausea Stop: 10/13/23 02:37 Last Admin: 09/14/23 19:50 Dose: 4 mg Oxycodone HCl (Oxycodone Hcl Ir 5 Mg Tab (Immediate Release)) 5 mg PO Q4H PRN PRN Reason: Breakthrough Pain Stop: 09/28/23 23:12 Last Admin: 09/15/23 18:34 Dose: 5 mg Phenol (Chloraseptic (Phenol) 1.4% Soln 180 Ml Btl) 1 sprays MT Q4H PRN PRN Reason: Sore Throat Stop: 10/15/23 21:33 Last Admin: 09/15/23 23:11 Dose: 1 sprays
[2023-09-16] MEDS: FAMOTIDINE 20 MG in SYRINGE 3 ML IV SCH ×2 (08:06→20:33)
[2023-09-16] MEDS: ESCITALOPRAM OXALATE 10 MG TAB PO SCH (08:13)
[2023-09-16] MEDS: POTASSIUM CHLORIDE / WTR 10 MEQ/100 ML PLCT IV SCH ×3 (09:11→11:27)
[2023-09-16] MEDS: VANCOMYCIN HCL 1,250 MG in SODIUM CHLORIDE 0.9% 250 ML IV SCH ×2 (09:22→22:16)
[2023-09-16] MEDS: oxyCODONE HCL IR 5 MG TAB (IMMEDIATE RELEASE) PO PRN ×2 (11:00→18:57)
[2023-09-16] MEDS: D5W AND 1/2NSS + 20MEQ KCL 20 MEQ/1,000 ML BAG IV SCH (11:30)
--- NOTE | 2023-09-16 12:36 | Surgery Progress Note ---
Date of Service September 16, 2023 Assessment & Plan (1) Perforated viscus: Plan: Assessment: F/U S/P Exploratory Laparoscopy, Washout, Lysis of Adhesions, Drain Insertion , POD 3 pt is doing better, no fever. JORDYN 200 ml cloudy. keep NG tube now, Continue treatment with IV antibiotic. Keep n.p.o. OOB Repeat the lab tomorrow morning Will follow-up 09/16/2023 12: 40 PM Assessment: F/U S/P Exploratory Laparoscopy, Washout, Lysis of Adhesions, Drain Insertion , POD 4 pt is stable. , no fever. JORDYN 30 ml cloudy. NG 450ml keep NG tube now, Continue treatment with IV antibiotic. Keep n.p.o. OOB Repeat the lab tomorrow morning Will follow-up Admission and Anticipated Discharge Date Admission Date: September 13, 2023 Subjective F/U S/P Exploratory Laparoscopy, Washout, Lysis of Adhesions, Drain Insertion , POD 4 pt is stable, no significant abdominal pain, no fever, NG 450 ml, JORDYN 30ml, one BM. Physical Exam Constitutional: WD/WN, vitals as above Eyes: PERRL, conjunctivae normal, anicteric sclerae Neck: trachea midline, no thyromegaly Respiratory: normal respiratory effort, lungs clear to auscultation Cardiovascular: RRR, no murmur, no edema Gastrointestinal (Abdomen): soft, mild tenderness at low abdomen. no rebound pain, no distend, BS +. JORDYN intact. Musculoskeletal: no cyanosis or clubbing, extremities motor strength 5/5 Neurologic: patellar DTR's 2+ bilat, sensation intact Psychiatric: A+Ox3, euthymic affect Results & Data Vital Signs (Past 12 Hours) Vital Signs Temp Pulse Resp BP Pulse Ox O2 Del Method 09/16/23 07:03 36.6 C 64 16 142/80 H 93 Room Air Laboratory Results Lab Results 09/12/23 09/12/23 09/13/23 Range/Units 19:20 19:41 09:18 WBC 9.01 10.27 (4.8-10.8) K/ul RBC 4.74 4.20 (4.20-5.40) M/uL Hgb 12.9 11.5 L (12.0-16.0) g/dl Hct 40.8 35.6 L (37.0-47.0) % MCV 86.1 84.8 (80.0-100.0) fL MCH 27.2 27.4 (25.0-34.0) pg MCHC 31.6 L 32.3 (32.0-36.0) g/dL RDW Std Deviation 45.0 45.0 (36.4-46.3) fL RDW Coeff of Agueda 14.2 14.6 H (11.5-14.5) % Plt Count 260 221 (130-400) K/uL MPV 10.3 10.0 (9.4-12.4) fL Immature Gran % (Auto) 0.3 % Neut % (Auto) 82.6 % Lymph % (Auto) 12.0 % [place] % (Auto) 4.8 % Eos % (Auto) 0.0 % Baso % (Auto) 0.3 % Neut # (Auto) 7.44 H (1.40-6.50) K/uL Lymph # (Auto) 1.08 L (1.20-3.40) K/uL [place] # (Auto) 0.43 (0.11-0.59) K/uL Eos # (Auto) 0.00 (0.00-0.50) K/uL Baso # (Auto) 0.03 (0.00-0.20) K/uL Immature Gran # (Auto) 0.03 (0.01-0.20) K/uL Sodium 138 138 (136-145) mmol/L Potassium 3.5 4.1 (3.5-5.1) mmol/L Chloride 106 111 H (98-107) mmol/L Carbon Dioxide 22 21 (21-32) mmol/L Anion Gap 10 6 (3-11) BUN 29 H 16 (6-23) mg/dl Creatinine 1.04 0.77 (0.6-1.2) mg/dl Est Cr Clr Drug Dosing Not Reportable 84.1 Est GFR ( Amer) 65.8 94.6 ml/min Est GFR (Non-Af Amer) 56.7 81.6 ml/min BUN/Creatinine Ratio 27.9 H 20.8 H (10-20) Glucose 112 H 146 H (70-99(Fasting)) mg/dl Lactate (0.4-2.0) mmol/L Calcium 8.8 8.1 L (8.6-10.3) mg/dl Phosphorus 3.7 (2.5-4.9) mg/dl Magnesium 1.7 (1.7-2.4) mg/dl Total Bilirubin 0.4 (0.2-1.0) mg/dl AST 16 (13-39) U/L ALT 18 (7-52) U/L Alkaline Phosphatase 107 H (34-104) U/L Total Protein 6.8 (6.0-8.3) gm/dl Albumin 3.9 (3.4-5.0) gm/dl Globulin 2.9 (2.5-4.0) gm/dl Albumin/Globulin Ratio 1.3 (0.9-2) Lipase 23 (11-82) U/L Urine Color Yellow Urine Appearance Cloudy A (Clear) Urine pH 5.5 (4.5-7.5) Ur Specific [place] 1.020 (1.000-1.030) Urine Protein Negative (Negative) Urine Glucose (UA) Negative (Negative) Urine Ketones Negative (Negative) Urine Blood 1+ H (Negative) Urine Nitrite Positive A (Negative) Urine Bilirubin Negative (Negative) Urine Urobilinogen Negative (Negative) Ur Leukocyte Esterase 2+ H (Negative) Urine WBC (Auto) >30 H (0-5) /hpf Urine RBC (Auto) 0-4 (0-4) /hpf U Hyaline Cast (Auto) 10-30 H (0-5) /lpf U Epithel Cells (Auto) 0-5 (0-5) /lpf Urine Bacteria (Auto) 3+ H (Negative) 09/14/23 09/15/23 09/16/23 Range/Units 07:26 01:39 06:02 WBC 8.35 9.76 9.66 (4.8-10.8) K/ul RBC 3.82 L 3.86 L 4.12 L (4.20-5.40) M/uL Hgb 10.6 L 10.5 L 11.3 L (12.0-16.0) g/dl Hct 32.5 L 33.3 L 34.9 L (37.0-47.0) % MCV 85.1 86.3 84.7 (80.0-100.0) fL MCH 27.7 27.2 27.4 (25.0-34.0) pg MCHC 32.6 31.5 L 32.4 (32.0-36.0) g/dL RDW Std Deviation 46.5 H 47.3 H 44.0 (36.4-46.3) fL RDW Coeff of Agueda 15.0 H 14.8 H 14.3 (11.5-14.5) % Plt Count 191 195 221 (130-400) K/uL MPV 10.1 9.7 10.0 (9.4-12.4) fL Immature Gran % (Auto) % Neut % (Auto) % Lymph % (Auto) % [place] % (Auto) % Eos % (Auto) % Baso % (Auto) % Neut # (Auto) (1.40-6.50) K/uL Lymph # (Auto) (1.20-3.40) K/uL [place] # (Auto) (0.11-0.59) K/uL Eos # (Auto) (0.00-0.50) K/uL Baso # (Auto) (0.00-0.20) K/uL Immature Gran # (Auto) (0.01-0.20) K/uL Sodium 140 137 138 (136-145) mmol/L Potassium 3.3 L 3.3 L 3.1 L (3.5-5.1) mmol/L Chloride 111 H 110 H 108 H (98-107) mmol/L Carbon Dioxide 25 22 24 (21-32) mmol/L Anion Gap 4 5 6 (3-11) BUN 13 8 6 (6-23) mg/dl Creatinine 0.83 0.69 0.71 (0.6-1.2) mg/dl Est Cr Clr Drug Dosing 78.0 93.8 91.2 Est GFR ( Amer) 86.4 106.6 104.3 ml/min Est GFR (Non-Af Amer) 74.5 92.0 90.0 ml/min BUN/Creatinine Ratio 15.7 11.6 8.5 L (10-20) Glucose 114 H 155 H 141 H (70-99(Fasting)) mg/dl Lactate 0.7 (0.4-2.0) mmol/L Calcium 8.1 L 8.1 L 8.2 L (8.6-10.3) mg/dl Phosphorus 2.7 D 2.4 L 3.0 (2.5-4.9) mg/dl Magnesium 1.9 1.6 L 1.9 (1.7-2.4) mg/dl Total Bilirubin (0.2-1.0) mg/dl AST (13-39) U/L ALT (7-52) U/L Alkaline Phosphatase (34-104) U/L Total Protein (6.0-8.3) gm/dl Albumin (3.4-5.0) gm/dl Globulin (2.5-4.0) gm/dl Albumin/Globulin Ratio (0.9-2) Lipase (11-82) U/L Urine Color Urine Appearance (Clear) Urine pH (4.5-7.5) Ur Specific [place] (1.000-1.030) Urine Protein (Negative) Urine Glucose (UA) (Negative) Urine Ketones (Negative) Urine Blood (Negative) Urine Nitrite (Negative) Urine Bilirubin (Negative) Urine Urobilinogen (Negative) Ur Leukocyte Esterase (Negative) Urine WBC (Auto) (0-5) /hpf Urine RBC (Auto) (0-4) /hpf U Hyaline Cast (Auto) (0-5) /lpf U Epithel Cells (Auto) (0-5) /lpf Urine Bacteria (Auto) (Negative)
[2023-09-16] MEDS: ONDANSETRON INJ 2 MG/ML 2 ML VIAL IV PRN (19:07)
[2023-09-16] MEDS ORDERED: LORazepam 0.25 MG in SYRINGE 0.125 ML IV STA (23:01)
[2023-09-17] MEDS: D5W AND 1/2NSS + 20MEQ KCL 20 MEQ/1,000 ML BAG IV SCH ×2 (00:03→18:09)
[2023-09-17] MEDS: HYDROmorphone INJ 0.5 MG/0.5 ML SYR IV PRN ×3 (04:28→21:21)
[2023-09-17] MEDS: PIPERACILLIN/TAZOBACTAM 4.5 GM in DEXTROSE 5% MINI-B 100 ML IV SCH ×3 (04:55→20:55)
[2023-09-17 06:17] LABS: Hematocrit (blood only) 33.6 % (37.0-47.0); Hemoglobin 11.5 g/dl (12.0-16.0); Mean Corpuscular Hemoglobin 27.7 pg (25.0-34.0); Mean Corpuscular Hgb Conc 34.2 g/dL (32.0-36.0); Mean Platelet Volume 9.2 fL (9.4-12.4); Platelet Count 235 K/uL (130-400); RDW Coefficient of Variation 13.7 % (11.5-14.5); RDW Standard Deviation 40.4 fL (36.4-46.3); Red Blood Count 4.15 M/uL (4.20-5.40); White Blood Count 8.47 K/ul (4.8-10.8)
[2023-09-17 06:35] LABS: BUN Creatinine Ratio 7.7 (10-20); Calcium 8.3 mg/dl (8.6-10.3); Creatinine Clr Calc Pharmacy 99.6 ml/min; Est GFR (African American) 108.7 ml/min; Est GFR (Non-African American) 93.8 ml/min; Magnesium 1.8 mg/dl (1.7-2.4); Phosphorus 3.3 mg/dl (2.5-4.9)
[2023-09-17] MEDS ORDERED: ACETAMINOPHEN 1000 MG/100 ML IV IV STA (07:35)
--- NOTE | 2023-09-17 07:44 | Hospitalist Progress Note ---
Date of Service September 17, 2023 Assessment & Plan (1) Perforated viscus: Plan: This is a 62-year-old female with past med significant for allergic rhinitis, asthma cough variant, GERD, diverticulosis of colon presents for lower abdominal pain and found to have perforated viscus s/p surgery currently. Perforated viscus S/p exploratory laparoscopy and found to have sigmoid colon perforation with developing abscess s/p washout and lysis of additions and drain insertion by Dr. Alvarez Continue IV Zosyn, fluids, analgesics and antiemetics as needed Diet per surgery - remains npo for now Surgery following closely Cultx from OR positive for Gram negat. bacilli and Staph species. - Pseudomonas , MSSA, Bacteroides - Cont. IV zosyn, vanco for now, will further discuss w/ surgery 09/15 Overnight pt was having increasing abd pain. CT scan was obtained and showing ileus vs PSBO. In early AM was having nausea/vomiting. Side Splitter ordered NG tube. - surgeon was made aware and agreed w/ NGT placement. 09/16 Pt with NGT tube placed and green liquid output. Also JORDYN output w/ green liquid. Pt is feeling well overall, says she had a good night but feels more bloated. No flatus. 09/17 Pt in OR this AM s/p colostomy. Currently appears well, cont. to closely monitor. Replace electrolytes, K, Mg - and cont. to monitor UTI - ucultx posit. for E.coli - on zosyn , as above GERD Continue IV Pepcid for now DVT prophylaxis SCDs for now DVT Ppx: SCDs for now Code status: FULL Dispo: Admitted to med/surg Admission and Anticipated Discharge Date Admission Date: September 13, 2023 Subjective Pt presented w/ perforated viscus and was taken to OR on admission - she is s/p Exploratory Laparoscopy, Washout, Lysis of Adhesions, Drain Insertion by Dr. Alvarez. Yesterday JORDYN was draining greenish fluid which then turned dark and pt had increased abd. pain. She was taken to OR again this AM by Dr. Alvarez. Currently sitting up in bed in NAD. Family present at the bedside. No fever, chills, chest pain or shortness of breath. Review of Systems Review of Systems: All systems reviewed & are unremarkable except as noted in Subjective Physical Exam Physical Exam: Gen: WD/WN, NAD HEENT: Normocephalic, atraumatic, conjunctivae moist, sclerae anicteric, mucous membranes moist Lung: Clear to Auscultation bilaterally, no wheezes/rales/rhonchi Heart: Regular rate, regular rhythm, no murmurs, rubs, or gallops Abdomen: Soft,mildly distended, surg. dressings c/d/i + colostomy, JORDYN drain w/ serosang. drainage Extremities: no edema, moves extremities Skin: Warm, no rash Results & Data Results & Data Vital Signs (Past 12 Hours) Vital Signs Temp Pulse Resp BP Pulse Ox O2 Del Method 09/16/23 20:33 Room Air 09/16/23 20:19 36.6 C 75 16 145/74 H 94 Room Air Laboratory Results 09/17/23 Range/Units 05:43 WBC 8.47 (4.8-10.8) K/ul RBC 4.15 L (4.20-5.40) M/uL Hgb 11.5 L (12.0-16.0) g/dl Hct 33.6 L (37.0-47.0) % MCV 81.0 (80.0-100.0) fL MCH 27.7 (25.0-34.0) pg MCHC 34.2 (32.0-36.0) g/dL RDW Std Deviation 40.4 (36.4-46.3) fL RDW Coeff of Agueda 13.7 (11.5-14.5) % Plt Count 235 (130-400) K/uL MPV 9.2 L (9.4-12.4) fL Sodium 139 (136-145) mmol/L Potassium 3.0 L (3.5-5.1) mmol/L Chloride 105 (98-107) mmol/L Carbon Dioxide 26 (21-32) mmol/L Anion Gap 8 (3-11) BUN 5 L (6-23) mg/dl Creatinine 0.65 (0.6-1.2) mg/dl Est Cr Clr Drug Dosing 99.6 ml/min Est GFR ( Amer) 108.7 ml/min Est GFR (Non-Af Amer) 93.8 ml/min BUN/Creatinine Ratio 7.7 L (10-20) Glucose 132 H (70-99(Fasting)) mg/dl Calcium 8.3 L (8.6-10.3) mg/dl Phosphorus 3.3 (2.5-4.9) mg/dl Magnesium 1.8 (1.7-2.4) mg/dl Random Vancomycin 12.5 (10-20) mcg/ml Medications Administered Current Inpatient Medications Acetaminophen (Acetaminophen 325 Mg Tab) 650 mg PO Q4H PRN PRN Reason: Pain or Fever Stop: 10/15/23 01:21 Last Admin: 09/15/23 07:43 Dose: 650 mg Escitalopram Oxalate (Escitalopram Oxalate 10 Mg Tab) 10 mg PO QAM [facility] Stop: 10/14/23 08:59 Last Admin: 09/16/23 08:13 Dose: 10 mg Hydromorphone HCl (Hydromorphone Inj 0.5 Mg/0.5 Ml Syr) 0.5 mg IV Q3H PRN PRN Reason: Pain Stop: 09/27/23 02:37 Last Admin: 09/17/23 04:28 Dose: 0.5 mg Piperacillin Sod/Tazobactam (Sod 4.5 gm/ Dextrose) 100 mls @ 25 mls/hr IV Q8H [facility]; Protocol Stop: 09/23/23 03:59 Last Admin: 09/17/23 04:55 Dose: 25 mls/hr Famotidine 20 mg/ Syringe 5 mls @ 2.5 mls/min IV BID [facility] Stop: 10/13/23 08:59 Last Admin: 09/16/23 20:33 Dose: 2.5 mls/min Potassium Chloride/Dextrose/Sod Cl (D5w And 1/2nss + 20meq Kcl) 20 meq in 1,000 mls @ 80 mls/hr IV .[id number] [facility] Stop: 10/16/23 10:59 Last Admin: 09/17/23 00:03 Dose: 80 mls/hr Vancomycin HCl 1,500 mg/ (Sodium Chloride) 530 mls @ 200 mls/hr IV Q12H [facility] Stop: 09/19/23 07:59 Potassium Chloride (K Berny / Wtr) 10 meq in 100 mls @ 100 mls/hr IV Q1H [facility] Stop: 09/17/23 11:44 Potassium Chloride (K Berny / Wtr) 10 meq in 100 mls @ 100 mls/hr IV Q1H [facility] Stop: 09/17/23 10:44 Miscellaneous Information (Vancomycin Consult Active) 1 each N/A UD PRN PRN Reason: Consult Stop: 10/14/23 15:20 Ondansetron HCl (Ondansetron Inj 2 Mg/Ml 2 Ml Vial) 4 mg IV Q6H PRN PRN Reason: Nausea Stop: 10/13/23 02:37 Last Admin: 09/16/23 19:07 Dose: 4 mg Oxycodone HCl (Oxycodone Hcl Ir 5 Mg Tab (Immediate Release)) 5 mg PO Q4H PRN PRN Reason: Breakthrough Pain Stop: 09/28/23 23:12 Last Admin: 09/16/23 18:57 Dose: 5 mg Phenol (Chloraseptic (Phenol) 1.4% Soln 180 Ml Btl) 1 sprays MT Q4H PRN PRN Reason: Sore Throat Stop: 10/15/23 21:33 Last Admin: 09/15/23 23:11 Dose: 1 sprays
[2023-09-17] MEDS ORDERED: POTASSIUM CHLORIDE / WTR 10 MEQ/100 ML PLCT IV SCH (07:45)
[2023-09-17] MEDS: POTASSIUM CHLORIDE / WTR 10 MEQ/100 ML PLCT IV SCH ×3 (08:28→11:22)
[2023-09-17] MEDS: ESCITALOPRAM OXALATE 10 MG TAB PO SCH (08:39)
[2023-09-17] MEDS: FAMOTIDINE 20 MG in SYRINGE 3 ML IV SCH ×2 (08:46→21:10)
--- NOTE | 2023-09-17 08:48 | Surgery Progress Note ---
Date of Service September 17, 2023 Assessment & Plan (1) Diverticulitis large intestine: Plan: The patient will be taken to the OR today for a Jaylen's procedure. Quite naturally she had wanted to try to avoid a colostomy but understands that the current presentation as well as the symptoms she continues with the inability to resolve make this the best option for improvement with lower morbidity than continuing to drain and potential fistula formation, etc. Her and her expressed understanding of this and agree to have the colostomy. Planned procedure: Exploratory laparoscopy with sigmoid colon resection and colostomy creation, possible open and all other indicated procedures. Admission and Anticipated Discharge Date Admission Date: September 13, 2023 Subjective Patient seen this am. States she feels as though she is back and forth, not really making any major head way in terms of how she feels overall. She has started to pass a small amount of flatus and has BMs. Her is at the bedside. Physical Exam Constitutional: average body habitus and healthy appearing; not in distress and not diaphoretic Respiratory: normal respiratory effort; no respiratory distress, no labored breathing and does not use accessory muscles Cardiovascular: Rate/Rhythm: regular rate; not tachycardic extremities are well perfused Gastrointestinal (Abdomen): She is up and moving around. Was coming out of the bathroom at the time of my exam. NGT in place and functioning. JORDYN drain is present and appears to be with thick, dark green drainage. Results & Data Vital Signs (Past 12 Hours) Vital Signs Temp Pulse Resp BP Pulse Ox O2 Del Method 09/17/23 08:03 36.7 C 69 16 128/75 94 Room Air PG Care Time/CCT Total # of Minutes Spent Total Time Spent with Patient: Total time spent is greater than 50% in coordination of care (as documented) at patient's floor/unit and/or counseling patient: Coding Level of Care Code 25815 SUB INP/OBS CARE 2/35MIN Medical Decision Making Low Complexity Diagnoses Diverticulitis large intestine K57.32 Diverticulitis complication: with perforation (1) Diverticulitis large intestine Diverticulitis complication: with perforation
[2023-09-17] MEDS: VANCOMYCIN HCL 1,500 MG in SODIUM CHLORIDE 0.9% 500 ML IV SCH ×2 (09:35→20:55)
--- NOTE | 2023-09-17 09:39 | Anesthesiology Consultation ---
Date of Service September 17, 2023 Assessment & Plan Chart Review Chart Review: Acceptable Risk for Surgery and Patient NOT seen in Pre Admission Testing History Surgery Operation Date: 09/12/23 23:00 Proposed Procedures p Laparoscopic Bowel Resection - Fariha Alvarez DO Operation Date: 09/17/23 10:00 Proposed Procedures p Laparoscopic Bowel Resection with Colostomy Creation, Possible Open - Fariha Alvarez DO Height/Weight Height: 5 ft 8 in Weight: 84.5 kg Allergies Allergy/AdvReac Type Severity Reaction Status Date / Time No Known Allergies Allergy Verified 09/12/23 22:01 Medications Home Medications Medication Instructions Recorded Confirmed Last Taken omeprazole magnesium 20 mg 20 mg PO QAM 07/03/18 09/12/23 09/12/23 tablet,delayed release (Prilosec OTC) escitalopram oxalate 10 mg tablet 10 mg PO QAM 09/12/23 09/12/23 09/12/23 Active Medications Generic Name Dose Route Start Last Admin Trade Name Freq PRN Reason Stop Dose Admin Acetaminophen 650 mg 09/15/23 01:22 09/15/23 07:43 Acetaminophen 325 Mg Tab PO 10/15/23 01:21 650 mg Q4H PRN Administration Pain or Fever Escitalopram Oxalate 10 mg 09/14/23 09:00 09/17/23 08:39 Escitalopram Oxalate 10 Mg Tab PO 10/14/23 08:59 10 mg QAM BALJINDER Administration Hydromorphone HCl 0.5 mg 09/13/23 20:39 09/17/23 04:28 Hydromorphone Inj 0.5 Mg/0.5 Ml Syr IV 09/27/23 02:37 0.5 mg Q3H PRN Administration Pain Piperacillin Sod/Tazobactam 100 mls @ 25 mls/hr 09/13/23 04:00 09/17/23 09:35 Sod 4.5 gm/ Dextrose IV 09/23/23 03:59 Infused Q8H BALJINDER Infusion Protocol Famotidine 20 mg/ Syringe 5 mls @ 2.5 mls/min 09/13/23 09:00 09/17/23 08:46 IV 10/13/23 08:59 2.5 mls/min BID BALJINDER Administration Potassium Chloride/Dextrose/Sod Cl 20 meq in 1,000 mls @ 80 mls/hr 09/16/23 11:00 09/17/23 00:03 D5w And 1/2nss + 20meq Kcl IV 10/16/23 10:59 80 mls/hr .[id number] BALJINDER Administration Vancomycin HCl 1,500 mg/ 530 mls @ 200 mls/hr 09/17/23 08:00 09/17/23 09:35 Sodium Chloride IV 09/19/23 07:59 200 mls/hr Q12H BALJINDER Administration Potassium Chloride 10 meq in 100 mls @ 100 mls/hr 09/17/23 07:45 09/17/23 09:35 K Berny / Wtr IV 09/17/23 10:44 100 mls/hr Q1H BALJINDER Administration Ondansetron HCl 4 mg 09/13/23 02:38 09/16/23 19:07 Ondansetron Inj 2 Mg/Ml 2 Ml Vial IV 10/13/23 02:37 4 mg Q6H PRN Administration Nausea Oxycodone HCl 5 mg 09/14/23 23:13 09/16/23 18:57 Oxycodone Hcl Ir 5 Mg Tab (Immediate Release) PO 09/28/23 23:12 5 mg Q4H PRN Administration Breakthrough Pain Phenol 1 sprays 09/15/23 21:34 09/15/23 23:11 Chloraseptic (Phenol) 1.4% Soln 180 Ml Btl MT 10/15/23 21:33 1 sprays Q4H PRN Administration Sore Throat NPO Date Last Intake of Fluids: 09/12/23 Time Last Intake of Fluids: 15:00 Date Last Intake of Solids: 09/12/23 Time Last Intake of Solids: 15:00 Past Medical History Medical History Osteoarthritis GERD (gastroesophageal reflux disease) Hot flashes due to menopause Abnormal angiogram of head MULTIPLE ANGIOGRAMS S/P ANEURYSM Restless leg syndrome Synovial cyst of lumbar facet joint (08/04/14) Past Family History Family History Mother Family history of diabetes mellitus Grandmother Family history of diabetes mellitus Past Surgical History Surgical History H/O exploratory laparotomy (09/12/23) Exploratory Laparoscopy, Washout, Lysis of Adhesions, Drain Insertion - Fariha Alvarez, Cyst ON BACK REMOVED History of colonoscopy 06/2018 repeat 5 yrs History of cholecystectomy Brain aneurysm COILED 4 YEARS AGO Social History Smoking Status: Never smoker Do You Dip or Chew Tobacco: No Hx Alcohol Use: Yes Alcohol type: wine and hard liquor alcohol intake frequency: holidays/special occasions only Hx Substance Use: No substance use type: does not use Physical Exam Vital Signs Last Vital Signs Temp 36.7 C 09/17/23 08:03 Pulse 69 09/17/23 08:03 Resp 16 09/17/23 08:03 BP 128/75 09/17/23 08:03 Pulse Ox 94 09/17/23 08:03 O2 Del Method Room Air 09/17/23 08:03 O2 Flow Rate 1 09/13/23 07:48 Testing Laboratory Results 09/17/23 05:43 09/17/23 05:43 Urine Color Yellow 09/12/23 19:41 Urine Appearance Cloudy (Clear) A 09/12/23 19:41 Urine pH 5.5 (4.5-7.5) 09/12/23 19:41 Ur Specific [place] 1.020 (1.000-1.030) 09/12/23 19:41 Urine Protein Negative (Negative) 09/12/23 19:41 Urine Glucose (UA) Negative (Negative) 09/12/23 19:41 Urine Ketones Negative (Negative) 09/12/23 19:41 Urine Nitrite Positive (Negative) A 09/12/23 19:41 Ur Leukocyte Esterase 2+ (Negative) H 09/12/23 19:41 Urine WBC (Auto) >30 /hpf (0-5) H 09/12/23 19:41 Urine RBC (Auto) 0-4 /hpf (0-4) 09/12/23 19:41 U Hyaline Cast (Auto) 10-30 /lpf (0-5) H 09/12/23 19:41 U Epithel Cells (Auto) 0-5 /lpf (0-5) 09/12/23 19:41 Urine Bacteria (Auto) 3+ (Negative) H 09/12/23 19:41 09/13/23 Unknown Gram Stain - Final Abdomen Aerobic and Anaerobic Culture - Preliminary Pseudomonas aeruginosa Staphylococcus aureus Anaerobic gram negative bacill 09/12/23 19:41 Urine Culture - Final Urine,Clean Catch Escherichia coli
[2023-09-17] MEDS ORDERED: PHENYLEPHRINE HCL 10 MG/ML VIAL ONE (10:16)
[2023-09-17] MEDS ORDERED: LIDOCAINE 2% 2 ML VIAL/AMP(20MG/ML) INFIL ONE (10:16)
[2023-09-17] MEDS ORDERED: PROPOFOL IV EMULSION 10 MG/ML 20 ML VIAL IV ONE (10:16)
[2023-09-17] MEDS ORDERED: ROCURONIUM BROMIDE 10 MG/ML 5 ML VIAL IV ONE ×2 (10:16→14:05)
[2023-09-17] MEDS ORDERED: SUCCINYLCHOLINE CHLORIDE 20 MG/ML 10 ML VIAL IV ONE (10:29)
[2023-09-17] MEDS ORDERED: MIDAZOLAM HCL 1 MG/ML 2ML VIAL ONE (11:00)
[2023-09-17] MEDS ORDERED: fentaNYL citrate PF 100 MCG/2 ML VIAL ONE ×3 (11:00→14:49)
[2023-09-17] MEDS ORDERED: ATROPINE SULFATE 0.1 MG/ML 10ML SYR IV PRN (11:59)
[2023-09-17] MEDS ORDERED: ONDANSETRON INJ 2 MG/ML 2 ML VIAL IV PRN (11:59)
[2023-09-17] MEDS ORDERED: ePHEDrine sulfate 50 MG/ML AMP IV PRN (11:59)
[2023-09-17] MEDS ORDERED: BUPIVACAINE/EPINEPHRINE 0.5% MPF 1:200,000 30 ML VIAL ONE (11:59)
[2023-09-17] MEDS ORDERED: HYDROmorphone INJ 2 MG/ML SYR/VIAL IV PRN (11:59)
--- NOTE | 2023-09-17 14:35 | Pharmacy Report ---
Pharmacy PK ABX Note - Date of Service September 17, 2023 - Assessment and Plan Assessment 62 year old F receiving vancomycin/zosyn for treatment of perforated viscous/uti. Pertinent microbiologic data includes: abdomen culture growing Pseudomonas aeruginosa, Staphylococcus aureus, and Bacteroides vulgatus. Urine culture with E. coli. Likely reasonable to de-escalate to Zosyn monotherapy since Staph aureus is methicillin-sensitive. Hospitalist to discuss with surgery. Plan Vancomycin * Current regimen: 1250 mg IV every 12 hours * Random level obtained 09/17/23 resulted as 12.5 mcg/mL. This is not predicted to achieve target AUC/GEORGIE of 400-600 mg/L.hr * Change to 1500 mg IV every 12 hours * Predicted AUC at steady state: 504 mg/L.hr * Will repeat level in the next 48-72 hours if therapy is continued and/or change in patient clinical status Zosyn * 4.5 g IV q8h - appropriately dosed Pharmacy will continue to follow and will adjust dose/frequency as necessary. Thank you. Pharmacy has transitioned to AUC monitoring for vancomycin. AUC/GEORGIE is the preferred PK/PD target and is associated with decreased risk of nephrotoxicity compared to traditional trough targets.
[2023-09-17] MEDS ORDERED: ONDANSETRON INJ 2 MG/ML 2 ML VIAL ONE (16:19)
[2023-09-17] MEDS ORDERED: ePHEDrine sulfate 50 MG/5 ML SYR ONE (16:19)
[2023-09-17] MEDS ORDERED: SUGAMMADEX SODIUM 200 MG/2 ML VIAL IV ONE (16:36)
[2023-09-17] MEDS ORDERED: HYDROmorphone INJ 1 MG/ML SYRINGE ONE (16:43)
--- NOTE | 2023-09-17 16:58 | Operative Report ---
PG Post Operative Report Pre & Post Diagnosis Operation Date: 09/17/23 10:00 Pre-Op Diagnosis: Large intestine diverticulitis Post-Op Diagnosis: Large intestine diverticulitis I identified the patient and participated in the time-out.: Yes Procedure Operation Date: 09/17/23 10:00 Actual Procedures p Laparoscopic Hand Assisted Bowel Resection with wash out, Colostomy Creation(Not Applicable) - Fariha Alvarez DO Surgeon Fariha Alvarez DO Personal Consultant No assistant bookkeeper Estimated Blood Loss 30 Findings See Below Specimens Sigmoid colon Drains 10 Belgian round JORDYN Anesthesia Type General Complications None Description of Procedure The Patient Was Brought Back to the Operating Room Placed on the Operating Room Table in Supine Position. SCDs Were Applied to Bilateral Lower Extremities. A Hurtado Was Already in Place. The Patient Was Connected to Cardiac and Oxygen Monitoring. Supplemental O2 was administered. General anesthesia was administered and a secured airway was established. The existing JORDYN drain was removed. The abdomen was prepped and draped in typical sterile fashion and a timeout was conducted. Pneumoperitoneum was established to a low pressure of 15 mmHg. Through a small stab supraumbilical incision using a Veress needle was used to access the intra- abdominal space and began CO2 insufflation. Using direct visualization with a 5 mm Visiport, a 5 mm laparoscope was inserted at this location. 2 additional 5 mm trocars were inserted under direct visualization at the right side of the abdomen. There was stool noted at the left lower quadrant over the omentum that was covering the area. The area was suctioned and the omentum was mobilized. Small bowel was also starting to adhesive this area was bluntly and gently mobilized away from the perforated colon. The perforation was identified. The colon was transected proximal to the perforation at a soft, healthy area of bowel using a purple loaded 60 mm Endo BRANDIE. 2 loads were required to complete this transection. The LigaSure was used to transect the mesentery from a top- down approach towards the rectum. An area of rectum was identified for potential transection just above the peritoneal reflection. Due to the narrowness of the pelvis at this location and potential difficulties getting in an Endo BRANDIE stapler down at this location, a small, suprapubic midline hand- assisted incision was made. CO2 insufflation was paused and laparoscope instruments were removed. A curvilinear BRANDIE with a black load was used to transect the rectum below the area of perforation. An Endo BRANDIE with a black load was used to complete this transection. Bleeding was controlled with the LigaSure. The area was irrigated and suction. The proximal end of the bowel was identified and grasped with a grasper. Additional mobilization of the white line of Toldt was performed in order to increase the length of descending colon that could be brought up for colostomy. A semicircular incision was made at the right side of the abdomen and an opening for the colostomy was created. The distal end of the descending colon was grasped with a grasper. This was brought up through the colostomy site. The abdomen was wiped clean and dry. The fascia at the midline incision was closed with 1-0 PDS. The wound was copiously irrigated. Subcutaneous tissue was approximated with 3-0 Vicryl suture and the skin was closed with skin dain. White towels were used to protect the abdomen stoma site. The descending colon was brought through the colostomy site was inspected for tension. It was felt that there was some tension at the lateral aspect of the colon. Trocars were reinserted and CO2 insufflation was reinitiated. Additional mobilization was performed along the white line of Toldt to gain more length of the descending colon. CO2 insufflation was discontinued excess air was evacuated the trocars and instruments were removed. Babcocks were used to grasp the staple line and the distal descending colon and the staple line was removed with a Aguilar scissor to expose the lumen. The colostomy was matured in a Carol fashion with 4-0 Vicryl sutures. At the conclusion of stoma creation, the colostomy is viable and pink with a small amount of venous congestion around the epiploica on the mesenteric side. An ostomy appliance was adhered after wiping the skin clean and prepped with benzoin. The midline incision was dressed with dry gauze and ABD secured in place with appropriate cloth tape. A drain sponge was placed around the JORDYN drain. Dermabond was used on the remaining laparoscopic incisions. The patient tolerated the procedure well. She was awakened from anesthesia, the secure airway was removed and she was transferred to recovery in stable condition. I attest to the content of the Intraoperative Record and any orders documented therein. Any exceptions are noted below.
--- NOTE | 2023-09-17 17:09 | Anesthesiology Progress Note ---
Date of Service September 17, 2023 Anesthesia Post Procedure Vital Signs Vital Signs: Temp Pulse Resp BP Pulse Ox O2 Del Method 09/17/23 11:48 36.7 C 61 18 163/81 H 95 Room Air 09/17/23 08:03 36.7 C 69 16 128/75 94 Room Air 09/16/23 20:33 Room Air 09/16/23 20:19 36.6 C 75 16 145/74 H 94 Room Air 09/16/23 19:01 80 20 158/80 H 95 Room Air Pain Intensity Lower Abdomen: Pain Intensity: 7 Transfer of Care Handoff Completed per policy Notes Mental Status: alert / awake / arousable Patient Amnestic to Procedure: Yes Nausea / Vomiting: adequately controlled Pain: adequately controlled Airway Patency, RR, SpO2: stable & adequate BP & HR: stable & adequate Hydration State: stable & adequate Anesthetic Complications: no major complications apparent
[2023-09-17] MEDS: fentaNYL citrate PF 100 MCG/2 ML VIAL IV PRN ×2 (17:11→17:16)
[2023-09-17] MEDS: ACETAMINOPHEN 1,000 MG/100 ML VIAL IV SCH (18:30)
[2023-09-18] MEDS: D5W AND 1/2NSS + 20MEQ KCL 20 MEQ/1,000 ML BAG IV SCH ×3 (00:13→08:40)
[2023-09-18] MEDS: HYDROmorphone INJ 0.5 MG/0.5 ML SYR IV PRN ×4 (00:15→10:35)
[2023-09-18] MEDS: ACETAMINOPHEN 1,000 MG/100 ML VIAL IV SCH ×3 (01:20→17:55)
[2023-09-18] MEDS: PIPERACILLIN/TAZOBACTAM 4.5 GM in DEXTROSE 5% MINI-B 100 ML IV SCH ×3 (03:59→20:34)
--- NOTE | 2023-09-18 07:33 | Surgery Progress Note ---
Date of Service September 18, 2023 Assessment & Plan (1) Diverticulitis large intestine: Plan: POD 1 Laparoscopic Hand Assisted Bowel Resection with wash out, Colostomy Creation Patient resting in bed Abdominal pain 7/10, IV pain medication helping Denies SOB, CP, fever, chills, N/V Has NG tube 500cc /24hr, possible removal later today Still NPO, sips with meds Hurtado cath draining clear yellow urine, possible removal later today JORDYN drain serosanguineous fluid Colostomy beefy red, clear red drainage, no stool output noted in bag yet Vertical pelvic staple line CDI no s/s of infection noted , dressing changed clean 4x4 and Medipore tape Encouraged incentive spirometry May get OOB to chair VSS AM CBC, BMP not drawn yet Will continue to monitor As above. All things considered she is doing well. Pain is being managed. Stoma looks great. Keep NG tube and Hurtado catheter for now (2) Colostomy in place: (3) Hypokalemia: Plan: potassium 3.4 Order repletion Maintenance fluid D5w 1/2 NSS with 20MEQ K Admission and Anticipated Discharge Date Admission Date: September 13, 2023 Subjective Patient resting in bed Abdominal pain 7/10 Denies SOB, CP, fever, chills, N/V Has NG tube Hurtado cath JORDYN drain Colostomy Review of Systems Constitutional: no fever and no chills Respiratory: no dyspnea Cardiovascular: no chest pain Gastrointestinal: + abdominal pain; no nausea and no vomit ing Integumentary: + wounds (surgical wounds ) Neurologic: no confusion and no memory loss Physical Exam Physical Exam: sleeping, easily aroused Constitutional: cooperative and comfortable; no acute distress ENMT: external ear and nose normal, oropharynx normal NG tube left nare Neck: trachea midline, no thyromegaly Respiratory: normal respiratory effort and able to speak in complete sentences; no respiratory distress Cardiovascular: Rate/Rhythm: regular rate (71) Gastrointestinal (Abdomen): Inspection/Auscultation: + abdominal surgical incision (vertical midline pelvic, dain, port sites dermabond) and + abdominal surgical drain present (JORDYN drain RLQ) Percussion/Palpation: + abdomen tender and + guarding Neurologic: awake; not confused Psychiatric: Orientation: alert and oriented x 3 Genitourinary: Hurtado cath Results & Data Vital Signs (Past 12 Hours) Vital Signs Temp Pulse Resp BP Pulse Ox O2 Del Method O2 Flow Rate 09/18/23 04:04 97.9 F 71 16 101/64 95 Nasal Cannula 2 09/18/23 02:32 98.2 F 88 16 111/71 94 Room Air 2 09/17/23 22:48 97.9 F 84 16 124/76 94 Nasal Cannula 2 09/17/23 21:45 Nasal Cannula 2 09/17/23 21:01 98.1 F 88 14 131/78 95 Nasal Cannula 2 PG Care Time/CCT Total # of Minutes Spent Total Time Spent with Patient: Total time spent is greater than 50% in coordination of care (as documented) at patient's floor/unit and/or counseling patient: Coding Level of Care Code 57561 Post Operative Follow-Up Diagnoses Diverticulitis large intestine K57.32 Diverticulitis complication: with perforation Colostomy in place Z93.3 Hypokalemia E87.6 (1) Diverticulitis large intestine Diverticulitis complication: with perforation
[2023-09-18 08:36] LABS: Basophils # (auto) 0.04 K/uL (0.00-0.20); Basophils % (auto) 0.4 %; Eosinophils # (auto) 0.06 K/uL (0.00-0.50); Eosinophils % (auto) 0.6 %; Hematocrit (blood only) 32.3 % (37.0-47.0); Hemoglobin 10.8 g/dl (12.0-16.0); Immature Granulocytes # (auto) 0.19 K/uL (0.01-0.20); Immature Granulocytes % (auto) 1.9 %; Lymphocytes # (auto) 1.01 K/uL (1.20-3.40); Lymphocytes % (auto) 10.2 %; Mean Corpuscular Hemoglobin 27.6 pg (25.0-34.0); Mean Corpuscular Hgb Conc 33.4 g/dL (32.0-36.0); Mean Corpuscular Volume 82.6 fL (80.0-100.0); Mean Platelet Volume 9.3 fL (9.4-12.4); Monocytes # (auto) 0.92 K/uL (0.11-0.59); Monocytes % (auto) 9.3 %; Neutrophils # (auto) 7.69 K/uL (1.40-6.50); Neutrophils % (auto) 77.6 %; Platelet Count 259 K/uL (130-400); RDW Coefficient of Variation 13.7 % (11.5-14.5); RDW Standard Deviation 41.4 fL (36.4-46.3); Red Blood Count 3.91 M/uL (4.20-5.40); White Blood Count 9.91 K/ul (4.8-10.8)
[2023-09-18] MEDS: ESCITALOPRAM OXALATE 10 MG TAB PO SCH (08:41)
[2023-09-18] MEDS: VANCOMYCIN HCL 1,500 MG in SODIUM CHLORIDE 0.9% 500 ML IV SCH ×2 (08:41→22:40)
[2023-09-18] MEDS: FAMOTIDINE 20 MG in SYRINGE 3 ML IV SCH ×2 (08:41→20:26)
[2023-09-18 08:57] LABS: BUN Creatinine Ratio 8.1 (10-20); Calcium 7.7 mg/dl (8.6-10.3); Creatinine Clr Calc Pharmacy 104.4 ml/min; Est GFR (African American) 110.4 ml/min; Est GFR (Non-African American) 95.3 ml/min; Magnesium 1.7 mg/dl (1.7-2.4); Phosphorus 3.1 mg/dl (2.5-4.9); Potassium 3.4 mmol/L (3.5-5.1)
[2023-09-18] MEDS ORDERED: POTASSIUM CHLORIDE / WTR 10 MEQ/100 ML PLCT IV SCH (09:45)
[2023-09-18] MEDS: oxyCODONE HCL IR 5 MG TAB (IMMEDIATE RELEASE) PO PRN (10:08)
[2023-09-18] MEDS ORDERED: POTASSIUM CHLORIDE CRTAB 20 MEQ TABCR PO STA (10:14)
[2023-09-18] MEDS ORDERED: HYDROmorphone INJ 1 MG/ML SYRINGE IV PRN (13:20)
[2023-09-18] MEDS ORDERED: NALOXONE HCL 0.4 MG/1 ML VIAL/CARP IV PRN (13:52)
--- NOTE | 2023-09-18 13:53 | XRay Report ---
SINGLE VIEW CHEST CLINICAL HISTORY: Dyspnea FINDINGS: An AP, portable, semierect chest radiograph is compared to study dated 08/01/2014. Correlati on is made with abdominal CT dated 09/14/2023. An enteric tube has been placed. The tip projects belo w the diaphragm over the stomach. The heart is enlarged. There is mild pulmonary vascular congestion. There are small pleural effusions with dependent atelectasis. No pneumothorax is seen. The skeletal structures are osteopenic. The bony thorax is grossly intact. Simultaneous emphysema is seen througho ut the chest wall bilaterally. Distended bowel loops are suggested in the upper abdomen. IMPRESSION: 1. An enteric tube is in place. 2. Cardiomegaly with mild pulmonary vascular congestion. 3. Small pleural effusions with dependent atelectasis. 4. Subcutaneous emphysema is seen throughout the chest wall bilaterally. Correlate clinically. ACT 112: Negative or not required by law. Electronically signed by: Al Pierce M.D. 09/18/2023 1:52 PM
--- NOTE | 2023-09-18 14:00 | Communication Note ---
Date of Service: September 18, 2023 Nurse reached out at 1300 stated patient was having increasing abdominal pain. After arriving to the room, patient was complaining of chest pain and shortness of breath, stat EKG showing NSR and CXR ordered, Dr. Avendaño met in patients room. Contacted Dr. Benavidez covering surgeon, ordered Dilaudid 1mg now, REHABILITATION SERVICES DIRECTOR pump, patient to be transferred to Med/tele. Continue IV Tylenol, VSS , spo2 94 on RA, Dr. Ford came to see patient, agrees with plan to increase pain medication. Will continue to monitor.
[2023-09-18] MEDS: POTASSIUM CHLORIDE 40 MEQ in D5W AND 1/2NSS 1,000 ML IV SCH ×2 (14:58→22:42)
[2023-09-18] MEDS: HYDROmorphone PCA 30 MG/30 ML IV PRN (15:37)
[2023-09-18] MEDS: SODIUM CHLORIDE 0.9% 1,000 ML IV SCH (15:37)
--- NOTE | 2023-09-18 16:18 | Hospitalist Progress Note ---
Date of Service September 18, 2023 Assessment & Plan (1) Perforated viscus: Plan: This is a 62-year-old female with past med significant for allergic rhinitis, asthma cough variant, GERD, diverticulosis of colon presents for lower abdominal pain and found to have perforated viscus s/p surgery currently. Perforated viscus S/p exploratory laparoscopy and found to have sigmoid colon perforation with developing abscess s/p washout and lysis of additions and drain insertion by Dr. Alvarez Continue IV Zosyn, fluids, analgesics and antiemetics as needed Diet per surgery - remains npo for now Surgery following closely Cultx from OR positive for Gram negat. bacilli and Staph species. - Pseudomonas , MSSA, Bacteroides - Cont. IV zosyn, vanco for now, will further discuss w/ surgery 09/15 Overnight pt was having increasing abd pain. CT scan was obtained and showing ileus vs PSBO. In early AM was having nausea/vomiting. Agricultural Produce Sorter ordered NG tube. - surgeon was made aware and agreed w/ NGT placement. 09/16 Pt with NGT tube placed and green liquid output. Also JORDYN output w/ green liquid. Pt is feeling well overall, says she had a good night but feels more bloated. No flatus. 09/17 Pt in OR this AM s/p colostomy. Currently appears well, cont. to closely monitor. 09/18 initially pt felt well this AM. Later developed severe abd. pain, cp, sob. Evaluated pt at the bedside w/ surg. - ecg w/ nsr, cxr unremarkable. Will transfer to telemetry. Pain management discussed w/ surg. team. If cont. to have concern w/ cp , sob, hypoxia, etc. consider CT PE. At this time appears to have severe pain from post. surg. abdomen. Replace electrolytes, K, Mg - and cont. to monitor UTI - ucultx posit. for E.coli - on zosyn , as above GERD Continue IV Pepcid for now DVT prophylaxis SCDs for now DVT Ppx: SCDs for now Code status: FULL Dispo: Admitted to med/surg Admission and Anticipated Discharge Date Admission Date: September 13, 2023 Subjective Pt presented w/ perforated viscus and was taken to OR on admission - she is s/p Exploratory Laparoscopy, Washout, Lysis of Adhesions, Drain Insertion by Dr. Alvarez. Then JORDYN was draining greenish / dark fluid and pt had increased abd. pain. She was taken to OR again yesterday AM by Dr. Alvarez, and pt now has colostomy. She seemed to be tolerating well. Pt was seen earlier today, and felt fairly well. sitting up in bed in NAD. No fever, chills, chest pain or shortness of breath. Update: early afternoon contacted by surgery FRUIT INSPECTOR - pt developed severe abd. pain and when was seen by surgery she complained to them of chest pain and shortness of breath and stat EKG and CXR were obtained. I came to see the pt in the presence of surg. FRUIT INSPECTOR. Pt was having severe abd. pain, looked very uncomfortable. Reported the abd. pain was jabbing upward towards her chest. ECG and CXR obtained and reviewed by me in the room. ecg w/ NSR and CXR unremarkable. Pt also remained on RA, saturating well, VS normal, pt not ta chycardic. Pt has no cardiac hx and her presentation did not appear cardiac baljinder. given severe abd pain post. surg. abdomen. If pt would develop acute shortness of breath, hypoxia, etc. would consider CT PE - this was discussed w/ surg. team, however at this point I feel we can hold off from that and cont. to closely monitor. Will transfer pt to telemetry for close monitoring. Surgical team adjusting pain management at this time. Review of Systems Review of Systems: All systems reviewed & are unremarkable except as noted in Subjective Physical Exam Physical Exam: Gen: WD/WN, NAD HEENT: Normocephalic, atraumatic, conjunctivae moist, sclerae anicteric, mucous membranes moist Lung: Clear to Auscultation bilaterally, no wheezes/rales/rhonchi Heart: Regular rate, regular rhythm, no murmurs, rubs, or gallops Abdomen: Soft,mildly distended, surg. dressings c/d/i + colostomy, JORDYN drain w/ serosang. drainage Extremities: no edema, moves extremities Skin: Warm, no rash Results & Data Results & Data Vital Signs (Past 12 Hours) Vital Signs Temp Pulse Resp BP BP Pulse Ox O2 Del Method 09/18/23 11:29 36.8 C 71 16 115/60 92 Room Air 09/18/23 07:33 36.8 C 65 16 107/60 95 Room Air Laboratory Results 09/18/23 09/18/23 Range/Units 14:20 07:39 WBC 9.91 (4.8-10.8) K/ul RBC 3.91 L (4.20-5.40) M/uL Hgb 10.8 L (12.0-16.0) g/dl Hct 32.3 L (37.0-47.0) % MCV 82.6 (80.0-100.0) fL MCH 27.6 (25.0-34.0) pg MCHC 33.4 (32.0-36.0) g/dL RDW Std Deviation 41.4 (36.4-46.3) fL RDW Coeff of Agueda 13.7 (11.5-14.5) % Plt Count 259 (130-400) K/uL MPV 9.3 L (9.4-12.4) fL Immature Gran % (Auto) 1.9 % Neut % (Auto) 77.6 % Lymph % (Auto) 10.2 % Laurel % (Auto) 9.3 % Eos % (Auto) 0.6 % Baso % (Auto) 0.4 % Neut # (Auto) 7.69 H (1.40-6.50) K/uL Lymph # (Auto) 1.01 L (1.20-3.40) K/uL Laurel # (Auto) 0.92 H (0.11-0.59) K/uL Eos # (Auto) 0.06 (0.00-0.50) K/uL Baso # (Auto) 0.04 (0.00-0.20) K/uL Immature Gran # (Auto) 0.19 (0.01-0.20) K/uL Sodium 137 (136-145) mmol/L Potassium 3.4 L (3.5-5.1) mmol/L Chloride 103 (98-107) mmol/L Carbon Dioxide 27 (21-32) mmol/L Anion Gap 7 (3-11) BUN 5 L (6-23) mg/dl Creatinine 0.62 (0.6-1.2) mg/dl Est Cr Clr Drug Dosing 104.4 ml/min Est GFR ( Amer) 110.4 ml/min Est GFR (Non-Af Amer) 95.3 ml/min BUN/Creatinine Ratio 8.1 L (10-20) Glucose 153 H (70-99(Fasting)) mg/dl Lactate 0.8 (0.4-2.0) mmol/L Calcium 7.7 L (8.6-10.3) mg/dl Phosphorus 3.1 (2.5-4.9) mg/dl Magnesium 1.7 (1.7-2.4) mg/dl Medications Administered Current Inpatient Medications Acetaminophen (Acetaminophen 325 Mg Tab) 650 mg PO Q4H PRN PRN Reason: Pain or Fever Stop: 10/15/23 01:21 Last Admin: 09/15/23 07:43 Dose: 650 mg Escitalopram Oxalate (Escitalopram Oxalate 10 Mg Tab) 10 mg PO QAM [facility] Stop: 10/14/23 08:59 Last Admin: 09/18/23 08:41 Dose: 10 mg Hydromorphone HCl (Hydromorphone Recreation Programmer 30 Mg/30 Ml) 30 mg IV PRN PRN; Protocol PRN Reason: SUPERVISOR RECLAMATION Pain Titration Stop: 10/02/23 13:51 Last Admin: 09/18/23 15:37 Dose: 30 mg Piperacillin Sod/Tazobactam (Sod 4.5 gm/ Dextrose) 100 mls @ 25 mls/hr IV Q8H [facility]; Protocol Stop: 09/23/23 03:59 Last Infusion: 09/18/23 15:55 Dose: Infused Famotidine 20 mg/ Syringe 5 mls @ 2.5 mls/min IV BID [facility] Stop: 10/13/23 08:59 Last Admin: 09/18/23 08:41 Dose: 2.5 mls/min Vancomycin HCl 1,500 mg/ (Sodium Chloride) 530 mls @ 200 mls/hr IV Q12H [facility] Stop: 09/27/23 07:59 Last Infusion: 09/18/23 11:47 Dose: Infused Acetaminophen (Ofirmev) 1,000 mg in 100 mls @ 400 mls/hr IV Q8H [facility] Stop: 09/20/23 16:59 Last Infusion: 09/18/23 09:40 Dose: Infused Potassium Chloride 40 meq/ (Dextrose/Sodium Chloride) 1,020 mls @ 125 mls/hr IV .Q8H10M [facility] Stop: 10/18/23 13:59 Last Admin: 09/18/23 14:58 Dose: Not Given Sodium Chloride (Nss) 1,000 mls @ 15 mls/hr IV .Q24H [facility] Stop: 10/02/23 13:53 Last Admin: 09/18/23 15:37 Dose: 15 mls/hr Miscellaneous Information (Vancomycin Consult Active) 1 each N/A UD PRN PRN Reason: Consult Stop: 10/14/23 15:20 Naloxone HCl (Naloxone Hcl 0.4 Mg/1 Ml Vial/Carp) 0.1 mg IV Q5M PRN; Protocol PRN Reason: Oversedation/Resp Depression Stop: 10/02/23 13:51 Ondansetron HCl (Ondansetron Inj 2 Mg/Ml 2 Ml Vial) 4 mg IV Q6H PRN PRN Reason: Nausea Stop: 10/13/23 02:37 Last Admin: 09/16/23 19:07 Dose: 4 mg Oxycodone HCl (Oxycodone Hcl Ir 5 Mg Tab (Immediate Release)) 5 mg PO Q4H PRN PRN Reason: Breakthrough Pain Stop: 09/28/23 23:12 Last Admin: 09/18/23 10:08 Dose: 5 mg Phenol (Chloraseptic (Phenol) 1.4% Soln 180 Ml Btl) 1 sprays MT Q4H PRN PRN Reason: Sore Throat Stop: 10/15/23 21:33 Last Admin: 09/15/23 23:11 Dose: 1 sprays
[2023-09-19] MEDS: ACETAMINOPHEN 1,000 MG/100 ML VIAL IV SCH ×3 (01:36→17:00)
[2023-09-19] MEDS ORDERED: PANTOprazole 40 MG in SYRINGE 0 ML IV ONE (04:48)
[2023-09-19] MEDS: PIPERACILLIN/TAZOBACTAM 4.5 GM in DEXTROSE 5% MINI-B 100 ML IV SCH ×3 (04:54→20:52)
[2023-09-19 06:15] LABS: Hematocrit (blood only) 29.3 % (37.0-47.0); Hemoglobin 9.6 g/dl (12.0-16.0); Mean Corpuscular Hemoglobin 27.4 pg (25.0-34.0); Mean Corpuscular Hgb Conc 32.8 g/dL (32.0-36.0); Mean Corpuscular Volume 83.5 fL (80.0-100.0); Mean Platelet Volume 8.8 fL (9.4-12.4); Platelet Count 250 K/uL (130-400); RDW Coefficient of Variation 14.1 % (11.5-14.5); RDW Standard Deviation 42.8 fL (36.4-46.3); Red Blood Count 3.51 M/uL (4.20-5.40); White Blood Count 9.42 K/ul (4.8-10.8)
[2023-09-19 06:26] LABS: BUN Creatinine Ratio 7.8 (10-20); Calcium 7.6 mg/dl (8.6-10.3); Creatinine Clr Calc Pharmacy 101.1 ml/min; Est GFR (African American) 109.3 ml/min; Est GFR (Non-African American) 94.3 ml/min; Magnesium 1.7 mg/dl (1.7-2.4); Phosphorus 3.2 mg/dl (2.5-4.9); Potassium 3.8 mmol/L (3.5-5.1)
[2023-09-19 06:54] LABS: Basophils # (auto) 0.04 K/uL (0.00-0.20); Basophils % (auto) 0.4 %; Eosinophils # (auto) 0.39 K/uL (0.00-0.50); Eosinophils % (auto) 4.1 %; Immature Granulocytes # (auto) 0.25 K/uL (0.01-0.20); Immature Granulocytes % (auto) 2.7 %; Lymphocytes # (auto) 1.37 K/uL (1.20-3.40); Lymphocytes % (auto) 14.5 %; Monocytes # (auto) 0.72 K/uL (0.11-0.59); Monocytes % (auto) 7.6 %; Neutrophils # (auto) 6.65 K/uL (1.40-6.50); Neutrophils % (auto) 70.7 %; Polychromasia 1+
[2023-09-19] MEDS ORDERED: VANCOMYCIN LEVEL ONE (07:30)
--- NOTE | 2023-09-19 08:26 | Pharmacy Report ---
Pharmacy PK ABX Note - Date of Service September 19, 2023 - Assessment and Plan Assessment 62 year old F receiving vancomycin/zosyn for treatment of perforated viscous/uti. Pertinent microbiologic data includes: abdomen culture growing Pseudomonas aeruginosa, Staphylococcus aureus, and Bacteroides vulgatus. Urine culture with E. coli. Exploratory laparoscopy w/ washout/lysis of adhesions/drain insertion on 09/12. Laparoscopic hand assisted bowel resection w/ wash out on 09/17. Patient w/ complaints of increasing abdominal pain on 09/18, transferred to [facility]/tele. Patient remains afebrile w/ no overt leukocytosis. Discussed de-escalation opportunity with hospitalist in light of culture results. Plan is to continue broad spectrum antibiotic regimen at this time. Day #6 of antibiotic therapy Plan Vancomycin * Current regimen: 09017 mg IV every 12 hours * Random level obtained 09/19/23 resulted as 17.4 mcg/mL. This is predicted to achieve target AUC/GEORGIE of 400-600 mg/L.hr * Continue current dose * Predicted AUC at steady state: 500 mg/L.hr * Will repeat level in the next 48-72 hours if therapy is continued and/or change in patient clinical status Zosyn * 4.5 g IV q8h - appropriately dosed, no change Pharmacy will continue to follow and will adjust dose/frequency as necessary. Thank you. Pharmacy has transitioned to AUC monitoring for vancomycin. AUC/GEORGIE is the preferred PK/PD target and is associated with decreased risk of nephrotoxicity compared to traditional trough targets.
[2023-09-19] MEDS: POTASSIUM CHLORIDE 40 MEQ in D5W AND 1/2NSS 1,000 ML IV SCH ×2 (09:14→17:43)
[2023-09-19] MEDS: FAMOTIDINE 20 MG in SYRINGE 3 ML IV SCH ×2 (09:16→20:52)
[2023-09-19] MEDS: ESCITALOPRAM OXALATE 10 MG TAB PO SCH (09:16)
--- NOTE | 2023-09-19 09:53 | Surgery Progress Note ---
Date of Service September 19, 2023 Assessment & Plan (1) History of bowel resection: Plan: pod 2 doing well monitor labs keep norman and ngt one more day...hopefully can d/c both tomorrow Admission and Anticipated Discharge Date Admission Date: September 13, 2023 Subjective pt seen. doing much better than yesterday. minimal pain now. Physical Exam Physical Exam: alert. nad. smiling. abd: soft. JORDYN with pink serous output. stoma with minimal output but mucosa pink. Results & Data Vital Signs (Past 12 Hours) Vital Signs Temp Pulse Pulse Resp BP BP Pulse Ox 09/19/23 06:55 36.3 C L 66 16 106/68 97 09/19/23 04:10 36.8 C 73 18 113/61 96 09/19/23 00:34 70 09/19/23 00:06 36.8 C 76 20 96/58 L 95 O2 Del Method O2 Flow Rate 09/19/23 06:55 Nasal Cannula 1 09/19/23 04:10 Room Air 09/19/23 00:34 09/19/23 00:06 Room Air PG Care Time/CCT Total # of Minutes Spent Total Time Spent with Patient: Total time spent is greater than 50% in coordination of care (as documented) at patient's floor/unit and/or counseling patient: Coding Level of Care Code 66204 Post Operative Follow-Up Diagnoses History of bowel resection Z90.49
[2023-09-19] MEDS: VANCOMYCIN HCL 1,500 MG in SODIUM CHLORIDE 0.9% 500 ML IV SCH (10:23)
[2023-09-19] MEDS ORDERED: MAGNESIUM SULFATE / D5W 1 GM/100 ML BAG IV ONE (16:51)
--- NOTE | 2023-09-19 16:54 | Hospitalist Progress Note ---
Date of Service September 19, 2023 Assessment & Plan (1) Perforated viscus: Plan: 62-year-old female with past med significant for allergic rhinitis, asthma cough variant, GERD, diverticulosis of colon presents for lower abdominal pain and found to have perforated viscus s/p surgery currently. Perforated viscus S/p exploratory laparoscopy and found to have sigmoid colon perforation with developing abscess s/p washout and lysis of adhesions and drain insertion by Dr. Alvarez on 09/12/23 Continue IV Zosyn, fluids, analgesics and antiemetics as needed Diet per surgery - remains npo for now Surgery following closely Cultx from OR positive for Gram negat. bacilli and Staph species. - Pseudomonas , MSSA, Bacteroides - Cont. IV zosyn, dc vanc. consult ID. 09/15 Overnight pt was having increasing abd pain. CT scan was obtained and showing ileus vs PSBO. In early AM was having nausea/vomiting. [employer] ordered NG tube. - surgeon was made aware and agreed w/ NGT placement. 09/16 Pt with NGT tube placed and green liquid output. Also JORDYN output w/ green liquid. Pt is feeling well overall, says she had a good night but feels more bloated. No flatus. 09/17 Pt in OR this AM s/p colostomy. Currently appears well, cont. to closely monitor. 09/18 initially pt felt well this AM. Later developed severe abd. pain, cp, sob. Evaluated pt at the bedside w/ surg. - ecg w/ nsr, cxr unremarkable. Will transfer to telemetry. Pain management discussed w/ surg. team. If cont. to have concern w/ cp , sob, hypoxia, etc. consider CT PE. At this time appears to have severe pain from post. surg. abdomen. 09/19 - feels abd pain under control. No chest pain or sob. feels better overall. Replace electrolytes, K, Mg - and cont. to monitor. IVF. Labs in AM Subcutaneous emphysema x chest wall b/l: likely cx of lap sx. asymptomatic, will follow. repeat CXR in AM for f/u. follow clinically. UTI - ucultx posit. for E.coli - on zosyn , as above GERD: Continue IV Pepcid for now DVT prophylaxis: SCDs for now DVT Ppx: SCDs for now Code status: FULL Dispo: Admitted to [facility]/surg Admission and Anticipated Discharge Date Admission Date: September 13, 2023 Subjective Pt presented w/ perforated viscus and was taken to OR on admission - she is s/p Exploratory Laparoscopy, Washout, Lysis of Adhesions, Drain Insertion on 09/12/23. Then JORDYN was draining greenish / dark fluid and pt had increased abd. pain. She was taken to OR again 12's AM, and pt now has colostomy. She seemed to be tolerating well. NG tube draining greenish bile. Abd pain under control. NPO. Pt denies fever, chills, chest pain or sob. Physical Exam Physical Exam: Gen: WD/WN, NAD HEENT: Normocephalic, atraumatic, conjunctivae moist, sclerae anicteric, mucous membranes moist Lung: Clear to Auscultation bilaterally, no wheezes/rales/rhonchi Heart: Regular rate, regular rhythm, no murmurs, rubs, or gallops Abdomen: Soft,mildly distended, surg. dressings c/d/i + colostomy, JORDYN drain w/ serosang. drainage Extremities: no edema, moves extremities Skin: Warm, no rash Results & Data Results & Data Vital Signs (Past 12 Hours) Vital Signs Temp Pulse Pulse Resp BP Pulse Ox O2 Del Method 09/19/23 15:00 66 09/19/23 14:55 36.3 C L 68 16 113/68 96 Nasal Cannula 09/19/23 10:49 36.7 C 62 16 95/56 L 96 Nasal Cannula 09/19/23 10:38 58 L 09/19/23 06:55 36.3 C L 66 16 106/68 97 Nasal Cannula O2 Flow Rate 09/19/23 15:00 09/19/23 14:55 2 09/19/23 10:49 2 09/19/23 10:38 09/19/23 06:55 1
[2023-09-19] MEDS ORDERED: D5W AND NSS 1,000 ML IV SCH (17:00)
[2023-09-19] MEDS: SODIUM CHLORIDE 0.9% 1,000 ML IV SCH (17:44)
[2023-09-19] MEDS: POTASSIUM CHLORIDE / WTR 10 MEQ/100 ML PLCT IV SCH (18:42)
[2023-09-20] MEDS: POTASSIUM CHLORIDE / WTR 10 MEQ/100 ML PLCT IV SCH (01:06)
[2023-09-20] MEDS: ACETAMINOPHEN 1,000 MG/100 ML VIAL IV SCH ×2 (02:10→08:09)
[2023-09-20] MEDS: POTASSIUM CHLORIDE 40 MEQ in D5W AND 1/2NSS 1,000 ML IV SCH ×3 (02:24→22:10)
[2023-09-20] MEDS: PIPERACILLIN/TAZOBACTAM 4.5 GM in DEXTROSE 5% MINI-B 100 ML IV SCH ×3 (04:08→21:09)
--- NOTE | 2023-09-20 07:15 | XRay Report ---
XR chest 1V portable HISTORY: 62 years-old Female f/u subcut chest wall emphysema acute chest and abdominal pain COMPARISON: 09/18/2023 TECHNIQUE: AP view of the chest FINDINGS: Enteric tube is present with distal tip extending below the diaphragm outside the [id number]. Card iac silhouette is enlarged. Right hemidiaphragmatic elevation. Pulmonary vascular congestion with mil d bibasilar densities favoring atelectasis. Degenerative changes of the shoulders and spine. Decreasi ng subcutaneous emphysema of the left greater than right chest wall. IMPRESSION: 1. Cardiomegaly with pulmonary vascular congestion. 2. Unchanged right hemidiaphragmatic elevation with bibasilar atelectasis. 3. Decreasing amount of chest wall subcutaneous emphysema. 4. Enteric tube courses below the diaphragm. ACT 112: Negative or not required by law. The above report was generated using voice recognition software. It may contain grammatical, syntax o r spelling errors. Electronically signed by: Roman Martínez M.D. 09/20/2023 7:14 AM
--- NOTE | 2023-09-20 07:40 | Surgery Progress Note ---
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 doing well. will remove norman keep ngt another day. no stoma fx yet and still bilious output from ngt. will obtain kub tomorrow...if no evidence of ileus will likely remove ngt tomorrow and start liquids. Admission and Anticipated Discharge Date Admission Date: September 13, 2023 Subjective Denies CP, SOB, Fever, Chills Abd pain a 1 /10 to palpation Feeling better than yesterday Review of Systems Constitutional: no fever and no chills Eyes: no problem reported Ear, Nose, Mouth, Throat: no problem reported Respiratory: no dyspnea Cardiovascular: no chest pain Gastrointestinal: + abdominal pain; no nausea and no vomit ing Genitourinary: Norman cath Integumentary: + wounds (surgical wounds ) Neurologic: no confusion and no memory loss Physical Exam Physical Exam: alert oriented, pleasant Constitutional: cooperative and comfortable; no acute distress Eyes: PERRL, conjunctivae normal, anicteric sclerae ENMT: external ear and nose normal, oropharynx normal Neck: trachea midline, no thyromegaly Respiratory: normal respiratory effort and able to speak in complete sentences; no respiratory distress Cardiovascular: Rate/Rhythm: regular rate (69) Gastrointestinal (Abdomen): Inspection/Auscultation: + abdominal surgical incision (vertical midline pelvic dain, port sites dermabond) and + abdominal surgical drain present (JORDYN drain RLQ) Musculoskeletal: no cyanosis or clubbing, extremities motor strength 5/5 Neurologic: awake; not confused Psychiatric: Orientation: alert and oriented x 3 Genitourinary: still has norman catheter Results & Data Vital Signs (Past 12 Hours) Vital Signs Temp Pulse Pulse Resp BP BP Pulse Ox 09/20/23 07:20 97.7 F 69 16 115/73 96 09/20/23 07:00 57 L 09/20/23 04:00 98.1 F 63 18 110/68 96 09/20/23 00:56 70 09/19/23 23:32 98.2 F 77 18 106/64 94 09/19/23 20:00 97.9 F 72 16 138/78 95 O2 Del Method O2 Flow Rate 09/20/23 07:20 Nasal Cannula 2 09/20/23 07:00 09/20/23 04:00 Nasal Cannula 2 09/20/23 00:56 09/19/23 23:32 Room Air 09/19/23 20:00 Nasal Cannula 2 PG Care Time/CCT Total # of Minutes Spent Total Time Spent with Patient: Total time spent is greater than 50% in coordination of care (as documented) at patient's floor/unit and/or counseling patient: Coding Level of Care Code 79594 Post Operative Follow-Up Diagnoses Perforated viscus R19.8
[2023-09-20 08:02] LABS: Hematocrit (blood only) 32.5 % (37.0-47.0); Hemoglobin 10.3 g/dl (12.0-16.0); Mean Corpuscular Hemoglobin 27.1 pg (25.0-34.0); Mean Corpuscular Hgb Conc 31.7 g/dL (32.0-36.0); Mean Corpuscular Volume 85.5 fL (80.0-100.0); Mean Platelet Volume 8.5 fL (9.4-12.4); Platelet Count 286 K/uL (130-400); RDW Coefficient of Variation 13.7 % (11.5-14.5); RDW Standard Deviation 42.9 fL (36.4-46.3); White Blood Count 8.28 K/ul (4.8-10.8)
[2023-09-20] MEDS: FAMOTIDINE 20 MG in SYRINGE 3 ML IV SCH ×2 (08:09→21:09)
[2023-09-20 08:17] LABS: BUN Creatinine Ratio 6.9 (10-20); Calcium 8.1 mg/dl (8.6-10.3); Creatinine Clr Calc Pharmacy 89.9 ml/min; Est GFR (African American) 102.6 ml/min; Est GFR (Non-African American) 88.5 ml/min; Magnesium 1.9 mg/dl (1.7-2.4); Phosphorus 3.3 mg/dl (2.5-4.9); Potassium 4.3 mmol/L (3.5-5.1)
[2023-09-20 08:26] LABS: Basophils # (auto) 0.04 K/uL (0.00-0.20); Basophils % (auto) 0.5 %; Eosinophils # (auto) 0.47 K/uL (0.00-0.50); Eosinophils % (auto) 5.7 %; Immature Granulocytes # (auto) 0.27 K/uL (0.01-0.20); Immature Granulocytes % (auto) 3.3 %; Lymphocytes % (auto) 14.5 %; Monocytes # (auto) 0.53 K/uL (0.11-0.59); Monocytes % (auto) 6.4 %; Neutrophils # (auto) 5.77 K/uL (1.40-6.50); Neutrophils % (auto) 69.6 %; Polychromasia 1+
[2023-09-20] MEDS: ESCITALOPRAM OXALATE 10 MG TAB PO SCH (09:23)
[2023-09-20] MEDS: ENOXAPARIN INJ 40 MG/0.4 ML SYR SQ SCH (09:23)
[2023-09-20] MEDS: HYDROmorphone PCA 30 MG/30 ML IV PRN (12:17)
--- NOTE | 2023-09-20 16:20 | Electrocardiogram Report ---
Test Reason : Blood Pressure : / mmHG Vent. Rate : 065 BPM Atrial Rate : 065 BPM P-R Int : 138 ms QRS Dur : 092 ms QT Int : 412 ms P-R-T Axes : 042 017 036 degrees QTc Int : 428 ms Normal sinus rhythm Nonspecific ST abnormality When compared with ECG of 12-SEP-2023 19:28, Vent. rate has increased BY 21 BPM Confirmed by Oumar Douglas ([id number]) on 09/20/2023 4:20:28 PM Referred By: REFERRED SELF Confirmed By:Estuardo Douglas
--- NOTE | 2023-09-20 16:24 | Hospitalist Progress Note ---
Date of Service September 20, 2023 Assessment & Plan (1) Perforated viscus: Plan: 62-year-old female with past med significant for allergic rhinitis, asthma cough variant, GERD, diverticulosis of colon presents for lower abdominal pain and found to have perforated viscus s/p surgery currently. Perforated viscus S/p exploratory laparoscopy and found to have sigmoid colon perforation with developing abscess s/p washout and lysis of adhesions and drain insertion by Dr. Alvarez on 09/12/23 Continue IV Zosyn, fluids, analgesics and antiemetics as needed Diet per surgery - remains npo for now Surgery following closely Cultx from OR positive for Gram negat. bacilli and Staph species. - Pseudomonas , MSSA, Bacteroides - Cont. IV zosyn, dc vanc. consult ID. 09/15 Overnight pt was having increasing abd pain. CT scan was obtained and showing ileus vs PSBO. In early AM was having nausea/vomiting. Shank Cementer Hand ordered NG tube. - surgeon was made aware and agreed w/ NGT placement. 09/16 Pt with NGT tube placed and green liquid output. Also JORDYN output w/ green liquid. Pt is feeling well overall, says she had a good night but feels more bloated. No flatus. 09/17 Pt in OR this AM s/p colostomy. Currently appears well, cont. to closely monitor. 09/18 initially pt felt well this AM. Later developed severe abd. pain, cp, sob. Evaluated pt at the bedside w/ surg. - ecg w/ nsr, cxr unremarkable. Will transfer to telemetry. Pain management discussed w/ surg. team. If cont. to have concern w/ cp , sob, hypoxia, etc. consider CT PE. At this time appears to have severe pain from post. surg. abdomen. 09/19 and - feels abd pain under control. No chest pain or sob. feels better overall. Replace electrolytes, K, Mg - and cont. to monitor. IVF. Labs in AM Subcutaneous emphysema x chest wall b/l: likely cx of lap sx. asymptomatic, will follow. repeat CXR w/ improvement. follow clinically. Pt is aware. UTI - ucultx posit. for E.coli - on zosyn , as above GERD: Continue IV Pepcid for now DVT prophylaxis: SCDs for now DVT Ppx: SCDs for now Code status: FULL Dispo: Admitted to med/surg Admission and Anticipated Discharge Date Admission Date: September 13, 2023 Subjective Pt presented w/ perforated viscus and was taken to OR on admission - she is s/p Exploratory Laparoscopy, Washout, Lysis of Adhesions, Drain Insertion on 09/12/23. Then JORDYN was draining greenish / dark fluid and pt had increased abd. pain. She was taken to OR again 09/17's AM, and pt now has colostomy. She seemed to be tolerating well. NG tube draining yellowish/orange bile -scant today. Abd pain under control. NPO. Pt denies fever, chills, chest pain or sob. Physical Exam Physical Exam: Gen: WD/WN, NAD HEENT: Normocephalic, atraumatic, conjunctivae moist, sclerae anicteric, mucous membranes moist Lung: Clear to Auscultation bilaterally, no wheezes/rales/rhonchi Heart: Regular rate, regular rhythm, no murmurs, rubs, or gallops Abdomen: Soft,mildly distended, surg. dressings c/d/i + colostomy, JORDYN drain w/ serosang. drainage Extremities: no edema, moves extremities Skin: Warm, no rash Results & Data Results & Data Vital Signs (Past 12 Hours) Vital Signs Temp Pulse Pulse Resp BP Pulse Ox O2 Del Method 09/20/23 14:37 65 09/20/23 14:14 36.4 C L 66 18 145/76 H 96 Nasal Cannula 09/20/23 11:32 36.6 C 68 18 96/59 L 96 Room Air 09/20/23 08:45 Nasal Cannula 09/20/23 07:20 36.5 C 69 16 115/73 96 Nasal Cannula 09/20/23 07:00 57 L O2 Flow Rate 09/20/23 14:37 09/20/23 14:14 2 09/20/23 11:32 09/20/23 08:45 2 09/20/23 07:20 2 09/20/23 07:00
[2023-09-20] MEDS: SODIUM CHLORIDE 0.9% 1,000 ML IV SCH (16:37)
[2023-09-21] MEDS: PIPERACILLIN/TAZOBACTAM 4.5 GM in DEXTROSE 5% MINI-B 100 ML IV SCH ×3 (05:17→20:38)
--- NOTE | 2023-09-21 05:54 | Surgery Progress Note ---
Date of Service September 21, 2023 Assessment & Plan (1) Perforated viscus: Plan: Patient is status post exploratory laparoscopy/abdominal washout and drain placement on 09/13/2023 (postop day #8) and status post Jaylen procedure on 09/17/2023 (postop day #4) Continue analgesics as needed Continue antiemetics as needed Continue n.p.o. status for the present time Continue IV fluids until certain oral intake will be adequate Plans are to repeat a KUB today (this study is pending) and consideration be given to removing NG tube based on the results of this study Maintain JORDYN drain to bulb suction Maintain on antibiotics. Patient is currently receiving Zosyn. Operative cultures from 09/13/2023 showed Pseudomonas which is sensitive to Zosyn, Staph aureus, and Bacteroides. Continue to mobilize as able Check a.m. labs when available Lovenox is in place for DVT prevention as above. feeling well. stoma still with no output. KUB shows dilated bowels c/w ileus keep NGT for now will start TPN as its been about a week since signigicant po intake. Admission and Anticipated Discharge Date Admission Date: September 13, 2023 Subjective Patient is currently resting comfortably in bed. She notes her pain is currently well-controlled at the present time. She says that she has been ambulating in the hallways and feels steady on her feet. She is urinating without difficulty. She denies any nausea or vomiting. Physical Exam Gastrointestinal (Abdomen): Abdomen is soft, nonrigid, nondistended. Patient's ostomy was examined and noted to be pink and viable. There is no stool or air noted in the collection b ag. JORDYN drain is in place draining serosanguineous fluid and is drained 75 cc over the past 24 hours. NG tube is in place and is drained 1650 cc the past 24 hours. Results & Data Vital Signs (Past 12 Hours) Vital Signs Temp Pulse Pulse Resp BP Pulse Ox O2 Del Method 09/21/23 03:51 36.9 C 62 18 113/76 95 Nasal Cannula 09/20/23 23:05 36.8 C 86 16 117/72 95 Nasal Cannula 09/20/23 22:00 105 H 09/20/23 20:00 Nasal Cannula 09/20/23 19:56 36.8 C 82 18 119/77 95 Nasal Cannula O2 Flow Rate 12/30/23 03:51 1 09/20/23 23:05 1 09/20/23 22:00 09/20/23 20:00 2 09/20/23 19:56 PG Care Time/CCT Total # of Minutes Spent Total Time Spent with Patient: Total time spent is greater than 50% in coordination of care (as documented) at patient's floor/unit and/or counseling patient: Coding Level of Care Code 51082 Post Operative Follow-Up Diagnoses Perforated viscus R19.8
--- NOTE | 2023-09-21 07:29 | XRay Report ---
KUB HISTORY: Acute generalized abdominal pain with reported ileus eval for ileus COMPARISON: KUB 09/15/2023, CT abdomen and pelvis 09/14/2023 FINDINGS: Enteric tube projects over the mid stomach. Cholecystectomy. Right lower quadrant surgical drainage catheter. Lower midline skin dain with left abdominal ostomy. Renal shadows are obscured by bowel gas. Scattered small bowel air-fluid levels are noted without significant small bowel disten tion. No renal calculi. No ureteral calculi. No pneumoperitoneum or pneumatosis. No fracture. IMPRESSION: 1. Postoperative changes with probable ileus. No definite bowel obstruction identified on today's alphonso dy. 2. Distal tip of enteric tube projects over the gastric body. ACT 112: Negative or not required by law. The above report was generated using voice recognition software. It may contain grammatical, syntax o r spelling errors. Electronically signed by: Roman Martínez M.D. 09/21/2023 7:27 AM
[2023-09-21] MEDS: FAMOTIDINE 20 MG in SYRINGE 3 ML IV SCH ×2 (08:28→20:38)
[2023-09-21] MEDS: ESCITALOPRAM OXALATE 10 MG TAB PO SCH (08:29)
[2023-09-21] MEDS: ENOXAPARIN INJ 40 MG/0.4 ML SYR SQ SCH (08:30)
[2023-09-21 09:12] LABS: Hematocrit (blood only) 31.9 % (37.0-47.0); Hemoglobin 10.4 g/dl (12.0-16.0); Mean Corpuscular Hemoglobin 27.4 pg (25.0-34.0); Mean Corpuscular Hgb Conc 32.6 g/dL (32.0-36.0); Mean Corpuscular Volume 83.9 fL (80.0-100.0); Mean Platelet Volume 8.4 fL (9.4-12.4); Platelet Count 333 K/uL (130-400); RDW Coefficient of Variation 13.7 % (11.5-14.5); RDW Standard Deviation 42.1 fL (36.4-46.3); White Blood Count 8.18 K/ul (4.8-10.8)
[2023-09-21] MEDS: SODIUM CHLORIDE 0.9% 1,000 ML IV SCH (09:12)
[2023-09-21 09:23] LABS: BUN Creatinine Ratio 6.8 (10-20); Calcium 8.5 mg/dl (8.6-10.3); Creatinine Clr Calc Pharmacy 88.7 ml/min; Est GFR (African American) 100.9 ml/min; Potassium 3.8 mmol/L (3.5-5.1)
[2023-09-21 10:20] LABS: Basophils # (auto) 0.04 K/uL (0.00-0.20); Basophils % (auto) 0.5 %; Eosinophils # (auto) 0.28 K/uL (0.00-0.50); Eosinophils % (auto) 3.4 %; Immature Granulocytes # (auto) 0.19 K/uL (0.01-0.20); Immature Granulocytes % (auto) 2.3 %; Lymphocytes # (auto) 0.97 K/uL (1.20-3.40); Lymphocytes % (auto) 11.9 %; Monocytes % (auto) 4.9 %
[2023-09-21] MEDS: POTASSIUM CHLORIDE 40 MEQ in D5W AND 1/2NSS 1,000 ML IV SCH (12:07)
[2023-09-21] MEDS ORDERED: TPN/PPN CONSULT PHARMACY STA (14:25)
[2023-09-21] MEDS ORDERED: TPN/PPN CONSULT PHARMACY SCH (14:33)
--- NOTE | 2023-09-21 15:50 | Hospitalist Progress Note ---
Date of Service September 21, 2023 Assessment & Plan (1) Perforated viscus: Plan: 62-year-old female with past med significant for allergic rhinitis, asthma cough variant, GERD, diverticulosis of colon presents for lower abdominal pain and found to have perforated viscus s/p surgery currently. Perforated viscus S/p exploratory laparoscopy and found to have sigmoid colon perforation with developing abscess s/p washout and lysis of adhesions and drain insertion by Dr. Alvarez on 09/12/23 Continue IV Zosyn, fluids, analgesics and antiemetics as needed Diet per surgery - remains npo for now Surgery following closely Cultx from OR positive for Gram negat. bacilli and Staph species. - Pseudomonas , MSSA, Bacteroides - Cont. IV zosyn, dc vanc. consult ID. 09/15 Overnight pt was having increasing abd pain. CT scan was obtained and showing ileus vs PSBO. In early AM was having nausea/vomiting. Chaplaincy ordered NG tube. - surgeon was made aware and agreed w/ NGT placement. 09/16 Pt with NGT tube placed and green liquid output. Also JORDYN output w/ green liquid. Pt is feeling well overall, says she had a good night but feels more bloated. No flatus. 09/17 Pt in OR this AM s/p colostomy. Currently appears well, cont. to closely monitor. 09/18 initially pt felt well this AM. Later developed severe abd. pain, cp, sob. Evaluated pt at the bedside w/ surg. - ecg w/ nsr, cxr unremarkable. Will transfer to telemetry. Pain management discussed w/ surg. team. If cont. to have concern w/ cp , sob, hypoxia, etc. consider CT PE. At this time appears to have severe pain from post. surg. abdomen. XR KUB 09/21 w/ no bowel obstruction but probable ileus. 09/19, , - feels abd pain under control. No chest pain or sob. feels better overall. Replace electrolytes, K, Mg - and cont. to monitor. IVF. Labs in AM. Diet per Sx; plan for ppn if not able to start PO in few days. Subcutaneous emphysema x chest wall b/l: likely cx of lap sx. asymptomatic, will follow. repeat CXR w/ improvement. follow clinically. Pt is aware. UTI - ucultx posit. for E.coli - on zosyn , as above GERD: Continue IV Pepcid for now DVT prophylaxis: lovenox. Code status: FULL Dispo: Admitted to med/tele Admission and Anticipated Discharge Date Admission Date: September 13, 2023 Subjective Pt presented w/ perforated viscus and was taken to OR on admission - she is s/p Exploratory Laparoscopy, Washout, Lysis of Adhesions, Drain Insertion on 09/12/23. Then JORDYN was draining greenish / dark fluid and pt had increased abd. pain. She was taken to OR again 09/17's AM, and pt now has colostomy. She seemed to be tolerating well. NG tube draining greenish bile - mod amount today. Abd pain under control. NPO. On IVF. Pt denies fever, chills, chest pain or sob. Physical Exam Physical Exam: Gen: WD/WN, NAD HEENT: Normocephalic, atraumatic, conjunctivae moist, sclerae anicteric, mucous membranes moist Lung: Clear to Auscultation bilaterally, no wheezes/rales/rhonchi Heart: Regular rate, regular rhythm, no murmurs, rubs, or gallops Abdomen: Soft,mildly distended, surg. dressings c/d/i + colostomy, JORDYN drain w/ serosang. drainage Extremities: no edema, moves extremities Skin: Warm, no rash Results & Data Results & Data Vital Signs (Past 12 Hours) Vital Signs Temp Pulse Pulse Resp BP BP Pulse Ox 09/21/23 15:22 36.7 C 61 18 112/61 94 09/21/23 11:55 36.5 C 58 L 18 93/59 L 92 09/21/23 08:27 36.7 C 73 18 117/60 96 09/21/23 08:15 09/21/23 07:54 56 L 09/21/23 03:51 36.9 C 62 18 113/76 95 O2 Del Method O2 Flow Rate 09/21/23 15:22 Room Air 09/21/23 11:55 Room Air 09/21/23 08:27 Nasal Cannula 1 09/21/23 08:15 Nasal Cannula 1 09/21/23 07:54 09/21/23 03:51 Nasal Cannula 1
[2023-09-21] MEDS: HYDROmorphone PCA 30 MG/30 ML IV PRN (16:01)
[2023-09-21] MEDS ORDERED: PANTOprazole 40 MG in SYRINGE 0 ML IV ONE (17:35)
[2023-09-21] MEDS: KETOROLAC TROMETHAMINE 15 MG/ML VIAL IV PRN (22:15)
[2023-09-22] MEDS: POTASSIUM CHLORIDE 40 MEQ in D5W AND 1/2NSS 1,000 ML IV SCH ×2 (02:21→16:53)
[2023-09-22] MEDS: PIPERACILLIN/TAZOBACTAM 4.5 GM in DEXTROSE 5% MINI-B 100 ML IV SCH ×3 (05:36→20:05)
--- NOTE | 2023-09-22 06:00 | Surgery Progress Note ---
Date of Service September 22, 2023 Assessment & Plan (1) Perforated viscus: Plan: Patient is status post exploratory laparoscopy/abdominal washout and drain placement on 09/13/2023 (postop day #9) and status post Jaylen procedure on 09/17/2023 (postop day #5) Continue analgesics as needed Continue antiemetics as needed KUB on 09/21/2023 showed findings consistent with a postoperative ileus As patient has had some ostomy function consideration may be given to removing NG tube and initiating sips of clear liquids TPN was initiated on 09/21/2023 due to lack of oral intake since surgery. Continue this until caloric intake is adequate. Maintain JORDYN drain to bulb suction Maintain on antibiotics. Patient is currently receiving Zosyn. Operative cultures from 09/13/2023 showed Pseudomonas which is sensitive to Zosyn, Staph aureus, and Bacteroides. Continue to mobilize as able Check a.m. labs when available Lovenox is in place for DVT prevention as above. doing well. stoma now putting out large amount of liquid stool. will perform ngt clamp trial..potential to d/c later and start clears. Admission and Anticipated Discharge Date Admission Date: September 13, 2023 Subjective Patient is currently resting comfortably in bed. She denies any nausea or vomiting. She notes her pain is currently well-controlled. She continues to ambulate periodically in the hallway. She is able to urinate without difficulty. Physical Exam Gastrointestinal (Abdomen): Abdomen is soft and nondistended with hypoactive bowel sounds. No rebound tenderness or guarding. There is minimal pain with palpation. NG tube is in place and is drained approximately 900 cc over the past 24 hours. JORDYN drain is in place with some serosanguineous fluid and is drained 800 cc over the past 24 hours. Patient's ostomy appears viable. There is liquid brown stool in the collection bag. Results & Data Vital Signs (Past 12 Hours) Vital Signs Temp Pulse Pulse Resp BP BP Pulse Ox 09/22/23 03:39 36.5 C 66 18 131/76 97 09/21/23 23:19 36.3 C L 65 16 110/66 97 09/21/23 21:57 67 09/21/23 20:08 36.5 C 79 16 137/77 94 O2 Del Method O2 Flow Rate 09/22/23 03:39 Nasal Cannula 1 09/21/23 23:19 Nasal Cannula 1 09/21/23 21:57 09/21/23 20:08 Room Air PG Care Time/CCT Total # of Minutes Spent Total Time Spent with Patient: Total time spent is greater than 50% in coordination of care (as documented) at patient's floor/unit and/or counseling patient: Coding Level of Care Code 70847 Post Operative Follow-Up Diagnoses Perforated viscus R19.8
[2023-09-22 06:30] LABS: Calcium 8.5 mg/dl (8.6-10.3); Creatinine Clr Calc Pharmacy 92.1 ml/min; Est GFR (African American) 104.3 ml/min; Phosphorus 3.9 mg/dl (2.5-4.9); Potassium 4.3 mmol/L (3.5-5.1)
[2023-09-22] MEDS: ENOXAPARIN INJ 40 MG/0.4 ML SYR SQ SCH (08:39)
[2023-09-22] MEDS: FAMOTIDINE 20 MG in SYRINGE 3 ML IV SCH ×2 (08:39→20:05)
[2023-09-22] MEDS: ESCITALOPRAM OXALATE 10 MG TAB PO SCH (08:39)
--- NOTE | 2023-09-22 14:30 | Pharmacy Report ---
Pharmacy Initial PN Consult Nt - Date of Service September 22, 2023 - Scope Pharmacy has been consulted on this date to manage parenteral nutrition orders and order appropriate labs. As part of the Nutrition Support Team Guidelines, pharmacy will work in conjunction with dietary when determining the patients caloric needs. - Subjective * The patient is a 62 year old Female admitted on 09/13/23 for PERFORATED VISCUS, s/p exploratory laparoscopy/abdominal washout and drain placement on 09/13/2023 (postop day #9) and status post Jaylen procedure on 09/17/2023 (postop day #5) * KUB on 09/21/2023 showed findings consistent with a postoperative ileus. * Removal of NG tube this afternoon and initiating sips of clear liquids. * TPN was initiated today due to lack of oral intake since surgery. Continue this until caloric intake is adequate. - Objective Vascular Access: * Patient currently has a peripheral line. * Peripheral line was confirmed by IV Team to be acceptable for PPN use on this date. Height & Weight (Last Documented) Height 5 ft 8 in Weight 86.3 kg Diet Order(s) 09/22/23 Lunch Diet Intake & Ouput (24hrs) 09/21/23 09/22/23 09/23/23 06:59 06:59 06:59 Intake Total 3390.833 / 3390.833 3082.000 / 3082.000 100 / 100 Output Total 3143 / 3143 1155 / 1155 Balance 247.833 / 252.958 9481.000 / 1927.000 100 / 100 Selected Laboratory Results 09/21/23 09/22/23 14:56 05:44 Sodium 137 Potassium 4.3 Chloride 102 Carbon Dioxide 28 Anion Gap 7 BUN 5 L Creatinine 0.71 Est GFR ( Amer) 104.3 Est GFR (Non-Af Amer) 90.0 BUN/Creatinine Ratio 7.0 L Glucose 120 H Calcium 8.5 L Phosphorus 3.9 Magnesium 2.[address] - Follow Up Nutrition Assessment Start: 09/17/23 09:12 Freq: Status: Active Protocol: Document 09/22/23 09:54 WN (Rec: 09/22/23 10:13 WN [id number]) RD - Initial Nutrition Assessment Start: 09/17/23 09:00 Freq: Status: Active Protocol: Document 09/17/23 09:00 ALR (Rec: 09/17/23 09:12 ALR [id number]) - Assessment & Plan Assessment: * Appreciate dietitians recommendations for macronutrients. * Patient was on IV Fluids with potassium, stopping at 1600 when PPN initiated. Plan: * For Day #1 of PPN administration, the following will be ordered: * Macronutrients: * Amino Acids: 64 grams/day * Dextrose: 75 grams/day * Lipids: 50 grams/day * Micronutrients: * TPN electrolytes: 20 mL/day - Contains 35 mEq Na, 20 mEq K, 4.5 mEq Ca, 5 mEq Mg, 35 mEq Cl, 29.5 mEq Acetate per 20 mL * Sodium phosphate: 15 mMol/day * Multivitamins: 10 mL/day * Trace elements: 1 mL/day * Thiamine: 100 mg/day * May need to increase potassium content tomorrow, based on labs. * Total volume of 1537 mL will be infused over 24 hours and will provide 1010 k erwin/day. * Patient is on PPN which has a maximum mOsm/L of 900. Final osmolarity of current solution is 764 mOsm/L. * Labs will be ordered per PN protocol. * Pharmacy will follow and adjust PN orders on a daily basis. Thank you!
--- NOTE | 2023-09-22 15:09 | Hospitalist Progress Note ---
Date of Service September 22, 2023 Assessment & Plan (1) Perforated viscus: Plan: 62-year-old female with past med significant for allergic rhinitis, asthma cough variant, GERD, diverticulosis of colon presents for lower abdominal pain and found to have perforated viscus s/p surgery currently. Perforated viscus S/p exploratory laparoscopy and found to have sigmoid colon perforation with developing abscess s/p washout and lysis of adhesions and drain insertion by Dr. Alvarez on 09/12/23 Continue IV Zosyn, fluids, analgesics and antiemetics as needed Diet per surgery - remains npo for now Surgery following closely Cultx from OR positive for Gram negat. bacilli and Staph species. - Pseudomonas , MSSA, Bacteroides - Cont. IV zosyn, dc vanc. consult ID. 09/15 Overnight pt was having increasing abd pain. CT scan was obtained and showing ileus vs PSBO. In early AM was having nausea/vomiting. Nutritional Services Cook ordered NG tube. - surgeon was made aware and agreed w/ NGT placement. 09/16 Pt with NGT tube placed and green liquid output. Also JORDYN output w/ green liquid. Pt is feeling well overall, says she had a good night but feels more bloated. No flatus. 09/17 Pt in OR this AM s/p colostomy. Currently appears well, cont. to closely monitor. 09/18 initially pt felt well this AM. Later developed severe abd. pain, cp, sob. Evaluated pt at the bedside w/ surg. - ecg w/ nsr, cxr unremarkable. Will transfer to telemetry. Pain management discussed w/ surg. team. If cont. to have concern w/ cp , sob, hypoxia, etc. consider CT PE. At this time appears to have severe pain from post. surg. abdomen. XR KUB 09/21 w/ no bowel obstruction but probable ileus. 09/19, , - feels abd pain under control. No chest pain or sob. feels better overall. 09/22 - stoma finally outputting greenish secretion/feculent material Replace electrolytes, K, Mg - and cont. to monitor. c/w ppn. Labs in AM. Diet per Sx; drainage Mx per Sx. Subcutaneous emphysema x chest wall b/l: likely cx of lap sx. asymptomatic, will follow. repeat CXR w/ improvement. follow clinically. Pt is aware. UTI - ucultx posit. for E.coli - on zosyn , as above GERD: Continue IV Pepcid for now DVT prophylaxis: lovenox. Code status: FULL Dispo: Admitted to med/tele Admission and Anticipated Discharge Date Admission Date: September 13, 2023 Subjective Pt presented w/ perforated viscus and was taken to OR on admission - she is s/p Exploratory Laparoscopy, Washout, Lysis of Adhesions, Drain Insertion on 09/12/23. Then JORDYN was draining greenish / dark fluid and pt had increased abd. pain. She was taken to OR again 09/17's AM, and pt now has colostomy. She seemed to be tolerating well. NG tube clamped. Abd pain under control. NPO. On IVF. stoma outputting greenish secretion. Pt denies fever, chills, chest pain or sob. Physical Exam Physical Exam: Gen: WD/WN, NAD HEENT: Normocephalic, atraumatic, conjunctivae moist, sclerae anicteric, mucous membranes moist Lung: Clear to Auscultation bilaterally, no wheezes/rales/rhonchi Heart: Regular rate, regular rhythm, no murmurs, rubs, or gallops Abdomen: Soft,mildly distended, surg. dressings c/d/i + colostomy, JORDYN drain w/ serosang. drainage Extremities: no edema, moves extremities Skin: Warm, no rash Results & Data Results & Data Vital Signs (Past 12 Hours) Vital Signs Temp Pulse Pulse Resp BP BP Pulse Ox 09/22/23 11:19 37.0 C 85 18 115/74 93 09/22/23 08:00 60 09/22/23 07:56 36.6 C 77 18 145/82 H 96 09/22/23 07:29 09/22/23 03:39 36.5 C 66 18 131/76 97 O2 Del Method O2 Flow Rate 09/22/23 11:19 Room Air 09/22/23 08:00 09/22/23 07:56 Room Air 09/22/23 07:29 Room Air 09/22/23 03:39 Nasal Cannula 1
[2023-09-22] MEDS ORDERED: DEXTROSE 10% 1,000 ML IV PRN (16:00)
[2023-09-22] MEDS ORDERED: CLINOLIPID 20% IV FAT EMULSION 250 ML IV SCH (16:00)
[2023-09-22] MEDS ORDERED: [UNRECOGNIZED DRUG - OTHER] IV SCH (16:00)
[2023-09-22] MEDS ORDERED: PERIPHERAL TPN IV SCH (16:00)
[2023-09-22] MEDS ORDERED: PANTOprazole 40 MG in SYRINGE 0 ML IV ONE (16:35)
[2023-09-22] MEDS: SODIUM CHLORIDE 0.9% 1,000 ML IV SCH (17:18)
[2023-09-22] MEDS: STOP CLINOLIPID SCH (23:15)
--- NOTE | 2023-09-23 05:13 | Surgery Progress Note ---
Date of Service September 23, 2023 Assessment & Plan (1) Perforated viscus: Plan: Patient is status post exploratory laparoscopy/abdominal washout and drain placement on 09/13/2023 (postop day #10) and status post Jaylen procedure on 09/17/2023 (postop day #6) Continue analgesics as needed Continue antiemetics as needed Patient has thus far tolerated advancement to clear liquids. May consider advancing to full liquids later today TPN was initiated on 09/21/2023 due to lack of oral intake since surgery; continue until certain oral intake will be adequate Maintain JORDYN drain to bulb suctionI suspect this will be removed prior to discharge home as output has been minimal. Maintain on antibiotics. Patient is currently receiving Zosyn. Operative cultures from 09/13/2023 showed Pseudomonas which is sensitive to Zosyn, Staph aureus, and Bacteroides. Continue to encourage mobilization efforts Check a.m. labs when available Lovenox is in place for DVT prevention As above. Doing well. Will advance her diet. Will DC her SPACER TYPE BAR AND SEGMENT and start oral analgesics. Would like to increase activity. Admission and Anticipated Discharge Date Admission Date: September 13, 2023 Subjective Patient is currently resting comfortably in bed. She denies any nausea or vomiting since she has had clear liquids initiated. She denies any worsening abdominal pain. She notes she is voiding without difficulty and ambulating without difficulty. Physical Exam Gastrointestinal (Abdomen): Abdomen is soft and nondistended. Bowel sounds are present. Patient's ostomy is pink and viable. There is liquid stool noted within the ostomy bag. JORDYN drain is in place and is draining serosanguineous fluid. It is only drained approximate cc over the past 24 hours. Results & Data Vital Signs (Past 12 Hours) Vital Signs Temp Pulse Pulse Resp BP Pulse Ox O2 Del Method 09/23/23 03:49 36.6 C 73 18 143/83 H 95 Room Air 09/22/23 23:33 36.9 C 66 18 131/67 93 Room Air 09/22/23 22:17 68 09/22/23 19:43 36.8 C 70 18 100/62 96 Room Air PG Care Time/CCT Total # of Minutes Spent Total Time Spent with Patient: Total time spent is greater than 50% in coordination of care (as documented) at patient's floor/unit and/or counseling patient: Coding Level of Care Code 22361 Post Operative Follow-Up Diagnoses Perforated viscus R19.8
[2023-09-23] MEDS: ENOXAPARIN INJ 40 MG/0.4 ML SYR SQ SCH (07:57)
[2023-09-23] MEDS: ESCITALOPRAM OXALATE 10 MG TAB PO SCH (07:57)
[2023-09-23] MEDS: FAMOTIDINE 20 MG in SYRINGE 3 ML IV SCH ×2 (08:02→19:51)
[2023-09-23 09:59] LABS: BUN Creatinine Ratio 12.5 (10-20); Calcium 8.5 mg/dl (8.6-10.3); Creatinine Clr Calc Pharmacy 101.9 ml/min; Est GFR (African American) 109.3 ml/min; Est GFR (Non-African American) 94.3 ml/min; Magnesium 1.9 mg/dl (1.7-2.4); Potassium 3.6 mmol/L (3.5-5.1)
[2023-09-23] MEDS ORDERED: HYDROmorphone INJ 0.5 MG/0.5 ML SYR IV PRN (10:48)
[2023-09-23] MEDS: PANTOprazole 40 MG in SYRINGE 0 ML IV SCH (12:42)
[2023-09-23] MEDS ORDERED: CALCIUM CARBONATE 500 MG CHEWABLE TAB PO PRN (13:50)
--- NOTE | 2023-09-23 13:53 | Hospitalist Progress Note ---
Date of Service September 23, 2023 Assessment & Plan (1) Perforated viscus: Plan: 62-year-old female with past med significant for allergic rhinitis, asthma cough variant, GERD, diverticulosis of colon presents for lower abdominal pain and found to have perforated viscus s/p surgery currently. Perforated viscus S/p exploratory laparoscopy and found to have sigmoid colon perforation with developing abscess s/p washout and lysis of adhesions and drain insertion by Dr. Alvarez on 09/12/23 Continue IV Zosyn, fluids, analgesics and antiemetics as needed Diet per surgery - remains npo for now Surgery following closely Cultx from OR positive for Gram negat. bacilli and Staph species. - Pseudomonas , MSSA, Bacteroides - Cont. IV zosyn, dc vanc. consult ID. 09/15 Overnight pt was having increasing abd pain. CT scan was obtained and showing ileus vs PSBO. In early AM was having nausea/vomiting. Decating Machine Operator ordered NG tube. - surgeon was made aware and agreed w/ NGT placement. 09/16 Pt with NGT tube placed and green liquid output. Also JORDYN output w/ green liquid. Pt is feeling well overall, says she had a good night but feels more bloated. No flatus. 09/17 Pt in OR this AM s/p colostomy. Currently appears well, cont. to closely monitor. 09/18 initially pt felt well this AM. Later developed severe abd. pain, cp, sob. Evaluated pt at the bedside w/ surg. - ecg w/ nsr, cxr unremarkable. Will transfer to telemetry. Pain management discussed w/ surg. team. If cont. to have concern w/ cp , sob, hypoxia, etc. consider CT PE. At this time appears to have severe pain from post. surg. abdomen. XR KUB 09/21 w/ no bowel obstruction but probable ileus. 09/19, , - feels abd pain under control. No chest pain or sob. feels better overall. 09/22 - stoma finally outputting greenish secretion/feculent material 09/23/23 - patient advanced to full liquid diet, tolerating well. Replace electrolytes, K, Mg - and cont. to monitor. c/w ppn. Labs in AM. Diet per Sx; drainage Mx per Sx. Subcutaneous emphysema x chest wall b/l: likely cx of lap sx. asymptomatic, will follow. repeat CXR w/ improvement. follow clinically. Pt is aware. UTI - ucultx posit. for E.coli - on zosyn , as above GERD: Continue IV Pepcid for now DVT prophylaxis: lovenox. Code status: FULL Dispo: Admitted to med/tele Admission and Anticipated Discharge Date Admission Date: September 13, 2023 Subjective Pt presented w/ perforated viscus and was taken to OR on admission - she is s/p Exploratory Laparoscopy, Washout, Lysis of Adhesions, Drain Insertion on 09/12/23. Then JORDYN was draining greenish / dark fluid and pt had increased abd. pain. She was taken to OR again 09/17's AM, and pt now has colostomy. She seemed to be tolerating well. NG tube removed, was not clear liquid, advance to full liquid. Abd pain under control. stoma outputting fecal material. Patient reports feeling better. Pt denies fever, chills, chest pain or sob. Physical Exam Physical Exam: Gen: WD/WN, NAD HEENT: Normocephalic, atraumatic, conjunctivae moist, sclerae anicteric, mucous membranes moist Lung: Clear to Auscultation bilaterally, no wheezes/rales/rhonchi Heart: Regular rate, regular rhythm, no murmurs, rubs, or gallops Abdomen: Soft,mildly distended, surg. dressings c/d/i + colostomy, JORDYN drain w/ scant serosang. drainage Extremities: no edema, moves extremities Skin: Warm, no rash NG tube removed. Results & Data Results & Data Vital Signs (Past 12 Hours) Vital Signs Temp Pulse Pulse Resp BP BP Pulse Ox 09/23/23 11:44 36.7 C 60 16 120/75 93 09/23/23 08:15 36.6 C 75 16 136/80 94 09/23/23 07:13 63 09/23/23 03:49 36.6 C 73 18 143/83 H 95 O2 Del Method 09/23/23 11:44 Room Air 09/23/23 08:15 Room Air 09/23/23 07:13 09/23/23 03:49 Room Air
[2023-09-23] MEDS: SODIUM CHLORIDE 0.9% 1,000 ML IV SCH (14:14)
[2023-09-23] MEDS ORDERED: [UNRECOGNIZED DRUG - OTHER] IV SCH (16:00)
[2023-09-23] MEDS ORDERED: CLINOLIPID 20% IV FAT EMULSION 250 ML IV SCH (16:00)
[2023-09-23] MEDS ORDERED: PERIPHERAL TPN IV SCH (16:00)
[2023-09-23] MEDS: ONDANSETRON INJ 2 MG/ML 2 ML VIAL IV PRN (19:51)
[2023-09-23] MEDS: STOP CLINOLIPID SCH (21:25)
[2023-09-23] MEDS: oxyCODONE HCL IR 5 MG TAB (IMMEDIATE RELEASE) PO PRN (22:12)
[2023-09-24] MEDS: KETOROLAC TROMETHAMINE 15 MG/ML VIAL IV PRN ×3 (03:03→21:58)
[2023-09-24] MEDS: ESCITALOPRAM OXALATE 10 MG TAB PO SCH (08:28)
[2023-09-24] MEDS: oxyCODONE HCL IR 5 MG TAB (IMMEDIATE RELEASE) PO PRN (08:30)
[2023-09-24] MEDS: ENOXAPARIN INJ 40 MG/0.4 ML SYR SQ SCH (08:31)
[2023-09-24] MEDS: FAMOTIDINE 20 MG in SYRINGE 3 ML IV SCH ×2 (08:32→20:04)
[2023-09-24] MEDS ORDERED: oxyCODONE HCL IR 5 MG TAB (IMMEDIATE RELEASE) PO PRN (08:40)
[2023-09-24] MEDS ORDERED: ACETAMINOPHEN 325 MG TAB PO PRN (08:40)
[2023-09-24] MEDS: PANTOprazole 40 MG in SYRINGE 0 ML IV SCH (10:28)
[2023-09-24 10:47] LABS: BUN Creatinine Ratio 19.7 (10-20); Calcium 8.9 mg/dl (8.6-10.3); Creatinine Clr Calc Pharmacy 97.6 ml/min; Est GFR (African American) 108.2 ml/min; Est GFR (Non-African American) 93.4 ml/min; Magnesium 1.9 mg/dl (1.7-2.4); Phosphorus 3.2 mg/dl (2.5-4.9); Potassium 3.8 mmol/L (3.5-5.1)
[2023-09-24] MEDS: SODIUM CHLORIDE 0.9% 1,000 ML IV SCH (11:39)
--- NOTE | 2023-09-24 13:10 | Infectious Disease Consult ---
Date of Service September 24, 2023 Telehealth Information I performed this visit using a real-time telehealth connection between my location and the patients location ([facility]). After connecting through interactive tele-video, patient was identified by name and date of and/or wristband check.Patient (or authorized healthcare assisted sales representative) was informed that this was a telemedicine visit and it was being conducted confidentially over secure lines. My office door was closed and no o ne else was present in the room with me.Patient (or authorized healthcare assisted sales representative) provided consent to proceed with the visit, expressed an understanding of privacy and security of the telemedicine visit, and gave permission to have a hospital assisted sales representative in the room in order to assist with the visit and to conduct portions of the visit, as needed. I informed the patient (or authorized healthcare assisted sales representative) that I reviewed their record and presented the opportunity for them to ask any questions regarding the visit today. The patient agreed to participate. Assessment & Plan Plan Patient admitted with abdominal pain and found to have perforated viscus s/p exploratory laparoscopy and found to have sigmoid colon perforation with developing abscess s/p washout and lysis of additions and drain insertion and started on IV zosyn which was completed on 09/22/23 History of Present Illness History of Present Illness 62 y/o F PMHx allergic rhinitis, asthma cough variant, GERD, diverticulosis of colon presents for lower abdominal pain and found to have perforated viscus s/p exploratory laparoscopy and found to have sigmoid colon perforation with developing abscess s/p washout and lysis of additions and drain insertion and started on IV zosyn Allergies Allergy/AdvReac Type Severity Reaction Status Date / Time lorazepam AdvReac Severe Headache Verified 09/17/23 18:41 Home Medications Medication Instructions Recorded Confirmed Type omeprazole magnesium 20 mg 20 mg PO QAM 07/03/18 09/12/23 History tablet,delayed release (Prilosec OTC) escitalopram oxalate 10 mg tablet 10 mg PO QAM 09/12/23 09/12/23 History Patient History Medical History (Updated 09/18/23 @ 09:47 by SAMY Correia) Osteoarthritis GERD (gastroesophageal reflux disease) Hot flashes due to menopause Abnormal angiogram of head MULTIPLE ANGIOGRAMS S/P ANEURYSM Restless leg syndrome Synovial cyst of lumbar facet joint (08/04/14) Surgical History (Updated 09/19/23 @ 09:52 by Ben Benavidez DO) History of bowel resection (09/17/23) Laparoscopic Hand Assisted Bowel Resection with wash out, Colostomy Creation(Not Applicable) - Fariha Alvarez DO H/O exploratory laparotomy (09/12/23) Exploratory Laparoscopy, Washout, Lysis of Adhesions, Drain Insertion - Fariha Alvarez DO Cyst ON BACK REMOVED History of colonoscopy 06/2018 repeat 5 yrs History of cholecystectomy Brain aneurysm COILED 4 YEARS AGO Family History Mother Family history of diabetes mellitus Grandmother Family history of diabetes mellitus Social History Smoking Status: Never smoker Second Hand Exposure: No; Do You Dip or Chew Tobacco: No; Hx Alcohol Use: Yes Alcohol type: wine and hard liquor Hx Substance Use: No Preferred Language: Kinyarwanda Communication Ability: Effective Visual Impairment: Limited Hearing Ability: Normal Digital Cartographic Technician Required: No Beliefs That Will Affect Care: None marital status: Current Living Situation: Spouse Other Information That Helps Us Care for You: No Feels Safe at Home: Yes Safety Concerns: Feels Safe At This Time Childhood Exposure to Second-Hand Smoke: No caffeine: Yes Dental Care, Regularly: Yes Physical Activity Frequency: 3-4 Times per Week Seatbelt Use: always Sunscreen Use: Yes Assistive Devices: None Results & Data Vital Signs (Past 12 Hours) Vital Signs Temp Pulse Pulse Resp BP Pulse Ox O2 Del Method 09/24/23 10:51 36.5 C 84 18 99/65 L 96 Room Air 09/24/23 07:32 36.3 C L 54 L 18 123/75 96 Room Air 09/24/23 05:58 51 L 09/24/23 04:22 36.4 C L 72 18 100/64 94 Room Air 09/24/23 04:11 68 Laboratory Results Gram Stain Final 09/13/23-8 Gram Stain Result Many WBCs Seen Rare Gram Positive Bacilli Aero/Emilia Cult Final 09/18/23-52 Organism 1 Pseudomonas aeruginosa Quantity Many Sens Sensitivities to Follow Organism 2 Staphylococcus aureus Quantity Rare Sens Sensitivities to Follow Organism 3 Bacteroides vulgatus Quantity Moderate Sens No Sensitivities to Follow P aerugino S aureus RX M.I.C. RX M.I.C. --- --------- --- --------- Cefepime S <=2 Ceftazidime S 4 Ciprofloxacin S <=0.25 Clindamycin S <=0.5 Daptomycin S 1 Erythromycin S <=0.5 Gentamicin S <=4 Levofloxacin S <=0.5 Meropenem S <=1 Oxacillin S 0.5 Tetracycline S <=4 Tobramycin S <=4 Trimeth/Sulfa S <=0.5/9.5 Pip/Tazo S <=16 Vancomycin S 2 S = SENSITIVE I = INTERMEDIATE R = RESISTANT Diagnostic Findings MPRESSION: 1. Status post posterior pelvic drainage catheter placement with scattered free intraperitoneal air which may be due to recent procedure and/or history of known sigmoid perforation. Diverticulosis throughout the colon more so through the sigmoid. 2. Small bowel dilatation suggestive of ileus versus early or partial small bowel obstruction, zone of transition indeterminate. 3. No acute appendicitis. 4. Mild left hydronephrosis most compatible with left UPJ etiology. Left leg with new + cyst with no further follow-up imaging recommended. 5. Status post cholecystectomy with multiple liver cysts. No further follow-up imaging recommended. 6. Mild bilateral pleural effusions with bilateral lower lobe atelectasis.
--- NOTE | 2023-09-24 14:01 | Hospitalist Progress Note ---
Date of Service September 24, 2023 Assessment & Plan (1) Perforated viscus: Plan: 62-year-old female with past med significant for allergic rhinitis, asthma cough variant, GERD, diverticulosis of colon presents for lower abdominal pain and found to have perforated viscus s/p surgery currently. Perforated viscus S/p exploratory laparoscopy and found to have sigmoid colon perforation with developing abscess s/p washout and lysis of adhesions and drain insertion by Dr. Alvarez on 09/12/23 Continue IV Zosyn, fluids, analgesics and antiemetics as needed Diet per surgery - remains npo for now Surgery following closely Cultx from OR positive for Gram negat. bacilli and Staph species. - Pseudomonas , MSSA, Bacteroides - Cont. IV zosyn, dc vanc. consult ID. 09/15 Overnight pt was having increasing abd pain. CT scan was obtained and showing ileus vs PSBO. In early AM was having nausea/vomiting. Turret Press Operator ordered NG tube. - surgeon was made aware and agreed w/ NGT placement. 09/16 Pt with NGT tube placed and green liquid output. Also JORDYN output w/ green liquid. Pt is feeling well overall, says she had a good night but feels more bloated. No flatus. 09/17 Pt in OR this AM s/p colostomy. Currently appears well, cont. to closely monitor. 09/18 initially pt felt well this AM. Later developed severe abd. pain, cp, sob. Evaluated pt at the bedside w/ surg. - ecg w/ nsr, cxr unremarkable. Will transfer to telemetry. Pain management discussed w/ surg. team. If cont. to have concern w/ cp , sob, hypoxia, etc. consider CT PE. At this time appears to have severe pain from post. surg. abdomen. XR KUB 09/21 w/ no bowel obstruction but probable ileus. 09/19, , - feels abd pain under control. No chest pain or sob. feels better overall. 09/22 - stoma finally outputting greenish secretion/feculent material 09/23-11/16 - NG tube and JORDYN drain has been removed. Diet being advanced, pt tolerating it. Monitor replete electrolytes. PPN discontinued. Diet has been advanced. Labs in AM. Diet per Sx. Discussed with ID 09/24/2023 -since patient is surgically improved, patient has gotten sufficient antibiotics as she has received 5 days of antibiotics after the second OR. Currently on no antibiotic and has been afebrile. Plan to cancel ID consult after in-depth discussion about the patient with ID. Subcutaneous emphysema x chest wall b/l: likely cx of lap sx. asymptomatic, will follow. repeat CXR w/ improvement. follow clinically. Pt is aware. UTI - ucultx posit. for E.coli - on zosyn , as above GERD: Continue IV Pepcid for now DVT prophylaxis: lovenox. Code status: FULL Dispo: Admitted to med/surg. pendign sx clearance. Admission and Anticipated Discharge Date Admission Date: September 13, 2023 Subjective Pt presented w/ perforated viscus and was taken to OR on admission - she is s/p Exploratory Laparoscopy, Washout, Lysis of Adhesions, Drain Insertion on 09/12/23. Then JORDYN was draining greenish / dark fluid and pt had increased abd. pain. She w as taken to OR again 09/17's AM, and pt now has colostomy. She seemed to be tolerating well. NG tube removed and JORDYN drain removed already, diet has been advanced to low fiber, pt tolerating well. Abd pain under control. stoma outputting fecal material. Patient reports feeling better. Pt denies fever, chills, chest pain or sob. Had headache overnight, relieved w/ toradol. No more headache in AM. Physical Exam Physical Exam: Gen: WD/WN, NAD HEENT: Normocephalic, atraumatic, conjunctivae moist, sclerae anicteric, mucous membranes moist Lung: Clear to Auscultation bilaterally, no wheezes/rales/rhonchi Heart: Regular rate, regular rhythm, no murmurs, rubs, or gallops Abdomen: Soft,mildly distended, surg. dressings c/d/i ,+ colostomy w/ feculent material Extremities: no edema, moves extremities Skin: Warm, no rash NG tube removed. Results & Data Results & Data Vital Signs (Past 12 Hours) Vital Signs Temp Pulse Pulse Resp BP Pulse Ox O2 Del Method 09/24/23 10:51 36.5 C 84 18 99/65 L 96 Room Air 09/24/23 07:32 36.3 C L 54 L 18 123/75 96 Room Air 09/24/23 05:58 51 L 01/02/24 04:22 36.4 C L 72 18 100/64 94 Room Air 09/24/23 04:11 68
--- NOTE | 2023-09-24 17:04 | Surgery Progress Note ---
Date of Service September 24, 2023 Assessment & Plan (1) Diverticulitis large intestine: Plan: Nurse removed JORDYN drain this a.m. PPN may be discontinued Dilaudid HOME DESIGNER has been discontinued. Patient should be on oral pain medication, oxycodone preferred so that the patient may use Tylenol for mild pain as directed on the bottle. Patient will be advanced to a low fiber diet which she should continue for 1 week after discharge. Following 1 week she may slowly increase fiber to resume her usual diet. Patient may be discharged this evening if she feels ready based on how she does with oral pain medications and her low fiber diet today. Otherwise she may be d ischarged in the early a.m provided she has a good night. Discharge on ciprofloxacin and Flagyl for a total of 14 days of antibiotics s/p sigmoidectomy. The patient will thus require an additional 6 to 7 days of oral antibiotics at home depending on whether she is discharged today or tomorrow. Follow-up with me in the office next week for staple removal. (2) Perforated viscus: Admission and Anticipated Discharge Date Admission Date: September 13, 2023 Subjective Patient seen and examined this a.m. States she feels as though she is doing well. Complained of a headache overnight after the Dilaudid HOME DESIGNER was discontinued. This headache was controlled with medication. She denies nausea, vomiting and has been tolerating a full liquid diet and continues with ostomy output. Her abdominal pain seems of been well-controlled with low levels of aching intermittently. She has not had any fevers or chills. Physical Exam Constitutional: average body habitus; not ill appearing, not in distress and not diaphoretic Respiratory: normal respiratory effort; no respiratory distress, no labored breathing and does not use accessory muscles Gastrointestinal (Abdomen): Abdomen is soft, nondistended. Low midline incision with dain is clean dry and intact. Stoma intact and viable with stool and flatus output in the ostomy bag. No tenderness to gentle palpation the lateral aspects of the abdomen. Results & Data Vital Signs (Past 12 Hours) Vital Signs Temp Pulse Pulse Resp BP Pulse Ox O2 Del Method 09/24/23 15:19 36.8 C 60 18 103/64 96 Room Air 09/24/23 10:51 36.5 C 84 18 99/65 L 96 Room Air 09/24/23 07:32 36.3 C L 54 L 18 123/75 96 Room Air 09/24/23 05:58 51 L PG Care Time/CCT Total # of Minutes Spent Total Time Spent with Patient: Total time spent is greater than 50% in coordination of care (as documented) at patient's floor/unit and/or counseling patient: Coding Level of Care Code 42448 Post Operative Follow-Up Diagnoses Diverticulitis large intestine K57.32 Diverticulitis complication: with perforation Perforated viscus R19.8 (1) Diverticulitis large intestine Diverticulitis complication: with perforation
[2023-09-24] MEDS: ONDANSETRON INJ 2 MG/ML 2 ML VIAL IV PRN (21:53)
[2023-09-25] MEDS: KETOROLAC TROMETHAMINE 15 MG/ML VIAL IV PRN (03:33)
[2023-09-25 07:28] LABS: Hematocrit (blood only) 32.5 % (37.0-47.0); Hemoglobin 10.6 g/dl (12.0-16.0); Mean Corpuscular Hgb Conc 32.6 g/dL (32.0-36.0); Mean Corpuscular Volume 82.9 fL (80.0-100.0); Mean Platelet Volume 8.9 fL (9.4-12.4); Platelet Count 527 K/uL (130-400); RDW Coefficient of Variation 13.8 % (11.5-14.5); RDW Standard Deviation 41.6 fL (36.4-46.3); Red Blood Count 3.92 M/uL (4.20-5.40); White Blood Count 8.16 K/ul (4.8-10.8)
[2023-09-25 07:56] LABS: BUN Creatinine Ratio 18.9 (10-20); Calcium 8.7 mg/dl (8.6-10.3); Est GFR (African American) 99.2 ml/min; Est GFR (Non-African American) 85.6 ml/min
--- NOTE | 2023-09-25 07:59 | Surgery Progress Note ---
Date of Service September 25, 2023 Assessment & Plan (1) Diverticulitis large intestine: Plan: Patient has had a Hatrmann's procedure 09/17/23. Afebrile, HD stable, tolerating a low fiber diet and oral pain medications Patient may be discharged Discharge on ciprofloxacin and Flagyl for a total of 14 days of antibiotics s/p sigmoidectomy. The patient will thus require an additional 6 days of oral antibiotics at home. Follow-up with me in the office next week for staple removal. Admission and Anticipated Discharge Date Admission Date: September 13, 2023 Subjective Patient seen and examined this am. Feels well. Said yesterday was a good day. Had a small amount of nausea after she had her first solid meal yesterday and moved around. She did receive Zofran but states her colostomy put out quite a bit after that and has since then. She required pain medication last night she states after all of the activity. Physical Exam Gastrointestinal (Abdomen): Abdomen is soft and non-tender to gently palpation this am. Midline incision w dain intact, c/d without erythema or swelling. Stoma is intact and viable. There is output in the colostomy bag. Results & Data Vital Signs (Past 12 Hours) Vital Signs Temp Pulse Resp BP Pulse Ox O2 Del Method 09/24/23 21:59 36.8 C 62 18 135/71 96 Room Air 09/24/23 20:30 36.9 C 67 15 121/67 97 Room Air PG Care Time/CCT Total # of Minutes Spent Total Time Spent with Patient: Total time spent is greater than 50% in coordination of care (as documented) at patient's floor/unit and/or counseling patient: Coding Level of Care Code 61874 Post Operative Follow-Up Diagnoses Diverticulitis large intestine K57.32 Diverticulitis complication: with perforation (1) Diverticulitis large intestine Diverticulitis complication: with perforation
[2023-09-25] MEDS: FAMOTIDINE 20 MG in SYRINGE 3 ML IV SCH (08:45)
[2023-09-25] MEDS: ENOXAPARIN INJ 40 MG/0.4 ML SYR SQ SCH (08:46)
[2023-09-25] MEDS: ESCITALOPRAM OXALATE 10 MG TAB PO SCH (08:46)
--- NOTE | 2023-09-25 12:27 | Discharge Summary ---
Date of Service September 25, 2023 Admission HPI Per Admitting Provider 62-year-old female with past med significant for allergic rhinitis, asthma cough variant, GERD, diverticulosis of colon presents for lower abdominal pain and found to have perforated viscus s/p surgery currently. Yesterday morning patient developed abdominal pain and as day progressed it became severe associated with nausea and sweating. Came to the ER in the evening and a CAT scan showing possible perforated viscus. S/p exploratory laparoscopy and found to have sigmoid colon perforation with developing abscess s/p washout and lysis of adhesions and drain insertion. Patient currently resting comfortably. F eeling better. Denies any fevers. No chest pain or shortness of breath. Currently has no headache. Has mild neck pain. No cough. Resting comfortably. Past medical history. As mentioned above Past surgical history. Per epic induced by D&E. Brain aneurysm coil procedure in 2013. Colonoscopy. Injection of lumbosacral spine. Laparoscopic cholecystectomy in 2008. Lumbar spine cyst excision in 2013. Social history. . No smoking. Alcohol rare. No drug use. Family history. Father had CHF. Dementia. Mother had diabetes. Maternal grandmother had stroke. Diabetes. Admission Exam Per Admitting Provider General- Not in distress Head- atraumatic Neck- supple, no JVD,carotids no bruits appreciated Lungs- clear to auscultation no wheezing or crackles. Heart- regular rhythm; no murmur, no gallop. Abdomen- s/p exploratory laparoscopy. dressing and drain seen. No distension. Extremities- no pretibial edema, no erythema seen. Neuro- alert, oriented x 3; I; no facial palsy; no dysarthria; moves extremities. Skin- warm & dry Principal Diagnosis Perforated viscus Subcutaneous emphysema UTI Discharge Exam Gen: WD/WN, NAD HEENT: Normocephalic, atraumatic, conjunctivae moist, sclerae anicteric, mucous membranes moist Lung: Clear to Auscultation bilaterally, no wheezes/rales/rhonchi Heart: Regular rate, regular rhythm, no murmurs, rubs, or gallops Abdomen: Soft,mildly distended, surg. dressings c/d/i ,+ colostomy w/ feculent material Extremities: no edema, moves extremities Skin: Warm, no rash NG tube removed. Discharge Data Allergies Allergy/AdvReac Type Severity Reaction Status Date / Time lorazepam AdvReac Severe Headache Verified 09/17/23 18:41 Consultations 09/12/23 21:48 Consult General Surgery Stat ED Decision to Admit Stat Procedures Performed Operation Date: 09/17/23 10:00 Actual Procedures p Laparoscopic Hand Assisted Bowel Resection with wash out, Colostomy Creation(Not Applicable) - Fariha Alvarez, Ordered Studies 09/12/23 19:21 CT abd pelvis IV con only Stat 09/14/23 21:10 CT Abd and Pelvis [CT abd pelvis IV con only] Stat Hospital Course (1) Perforated viscus: 62-year-old female with past med significant for allergic rhinitis, asthma cough variant, GERD, diverticulosis of colon presents for lower abdominal pain and found to have perforated viscus s/p surgery currently. She was managed for the following: Perforated viscus S/p exploratory laparoscopy and found to have sigmoid colon perforation with developing abscess s/p washout and lysis of adhesions and drain insertion by Dr. Alvarez on 09/12/23 Continue IV Zosyn, fluids, analgesics and antiemetics as needed Diet per surgery - remains npo for now Surgery following closely Cultx from OR positive for Gram negat. bacilli and Staph species. - Pseudomonas , MSSA, Bacteroides - Cont. IV zosyn, dc vanc. consult ID. 09/15 Overnight pt was having increasing abd pain. CT scan was obtained and showing ileus vs PSBO. In early AM was having nausea/vomiting. Information Clerk Cashier ordered NG tube. - surgeon was made aware and agreed w/ NGT placement. 09/16 Pt with NGT tube placed and green liquid output. Also JORDYN output w/ green liquid. Pt is feeling well overall, says she had a good night but feels more bloated. No flatus. 09/17 Pt in OR this AM s/p colostomy. Currently appears well, cont. to closely monitor. 09/18 initially pt felt well this AM. Later developed severe abd. pain, cp, sob. Evaluated pt at the bedside w/ surg. - ecg w/ nsr, cxr unremarkable. Will transfer to telemetry. Pain management discussed w/ surg. team. If cont. to have concern w/ cp , sob, hypoxia, etc. consider CT PE. At this time appears to have severe pain from post. surg. abdomen. XR KUB 09/21 w/ no bowel obstruction but probable ileus. 09/19, , - feels abd pain under control. No chest pain or sob. feels better overall. 09/22 - stoma finally outputting greenish secretion/feculent material 09/23-11/16 - NG tube and JORDYN drain has been removed. Diet being advanced, pt tolerating it. Monitor replete electrolytes. PPN discontinued. Diet has been advanced. Labs in AM. Diet per Sx. Discussed with ID 09/24/2023 -since patient is surgically improved, patient has gotten sufficient antibiotics as she has received 5 days of antibiotics after the second OR. Currently on no antibiotic and has been afebrile. Plan to cancel ID consult after in-depth discussion about the patient with ID. 09/25/2023: Patient tolerating advancement of diet, reports better pain control. Patient hemodynamically stable, afebrile, being discharged today. Discussed with surgery regarding antibiotic need and my discussion with ID yesterday. Surgery okay with being discharged on no antibiotic. Patient to follow-up with surgery in 1 week time upon discharge, patient to maintain low fiber diet until then. Patient has been made aware. Subcutaneous emphysema x chest wall b/l: likely cx of lap sx. asymptomatic, will follow. repeat CXR w/ improvement. follow clinically. Pt is aware. No more chest pain. UTI - ucultx posit. for E.coli - on zosyn , as above GERD: Continue IV Pepcid for now DVT prophylaxis: lovenox. Code status: FULL Dispo: Admitted to med/surg. pendign sx clearance. Patient is being discharged with home health with following instruction at the point of discharge: Follow-up with your primary care physician within a week time and likely you will need labs CBC/CMP/magnesium/phosphorus. Follow-up with surgery in 1 week time upon discharge. Continue with low fiber diet until you follow-up with surgery. You can take [id number] Tylenol for mild to moderate pain. You will be discharged on oxycodone for severe pain. If worsening abdominal pain, contact your surgery office or emergency immediately. Take your medications as prescribed. Please make sure that you are able to get your medications today by calling your pharmacy before you leave the hospital so that your treatment continuity is not broken. Home Health Attestation I certify that this patient is under my care and that I, or a physicians a ssistant working with me, had a face to-face encounter that meets the home health [id number]-iy-[id number] encounter requirements with this patient. The encounter with the patient was in whole, or in part, for the following medical condition, which is the primary reason for home health care (list medical condition): New colostomy I certify that, based on my findings, the following services are medically necessary home health services: My clinical findings support the need for the above services because: Skilled Nsg Assessment Skilled Nsg Assessment Surgical Incision / Wound Further, I certify that my clinical findings support that this patient is homebound (i.e. absences from home require considerable and taxing effort and are for medical reasons or congregation services or infrequently or of short duration when for other reasons) because: Transportation Assistance/Unable to Leave Home Unassisted Certification for Home Health Services: Based on the above findings, I certify that this patient is confined to the home and needs intermittent halfway care, physical therapy and/or speech therapy or continues to need occupational therapy. The patient is under my care, and I have initiated the establishment of the plan of care. This patient will be followed by a physician who will periodically review the plan of care. Total Time Total Time Spent Total Time Spent (In Minutes): 45 Discharge Plan Discharge Items Patient Disposition: Home - Home Health Services Reason For Visit: PERFORATED VISCUS Discharge Diagnosis: Perforated viscus Subcutaneous emphysema UTI Activity: As commented below Lifting: No more than 10 pounds Exercise/Sports: Wait until after follow-up appointment Non-emergency contact: Surgeon Call non-emergency contact if: you have any medication questions, your symptoms worsen, your pain is worsening, your temperature is above 101, your wound has increased redness, your wound has increased drainage and your wound pain has increased Follow-up/Referrals: Fariha Alvarez DO [Physician] - (call office for a follow up in 1 weeks ) Andrew Avina [Non-Staff] - Diet: Low Fiber Addtl Attending Provider Instructions: Follow-up with your primary care physician within a week time and likely you will need labs CBC/CMP/magnesium/phosphorus. Follow-up with surgery in 1 week time upon discharge. Continue with low fiber diet until you follow-up with surgery. You can take ielg-jeh-wmodmva Tylenol for mild to moderate pain. You will be discharged on oxycodone for severe pain. If worsening abdominal pain, contact your surgery office or emergency immediately. Take your medications as prescribed. Please make sure that you are able to get your medications today by calling your pharmacy before you leave the hospital so that your treatment continuity is not broken. Pending Studies at Discharge: No Stand-Alone Forms: My [facility] [employer], Smoking Cessation Medications and DC Order Prescriptions: New oxycodone 5 mg Tablet 5 mg PO Q8H PRN (Reason: severe pain (scale score 7-10)) 5 Days Qty: 15 0RF ondansetron 4 mg tablet,disintegrating 4 mg PO Q12H PRN (Reason: nausea and vomiting) Qty: 14 0RF Probiotic 3 billion cell capsule 3,000 mmu cells PO DAILY 7 Days Qty: 7 0RF Rx Instructions: administer with a meal Continued omeprazole magnesium [Prilosec OTC] 20 mg Tablet,Delayed Release (Dr/Ec) 20 mg PO QAM escitalopram oxalate 10 mg tablet 10 mg PO QAM Kradaryl/Other Patient Handouts: Colostomy: Changing Your Pouch, Ostomy Care: Emptying Your Pouch, Colostomy: Caring for Your Stoma, Colostomy: Managing Your Nutrition, Stoma Care Stoma and Skin Admission Data Admit Date/Time: 09/13/23 02:34 Attending Provider: Luis Segura Admit Provider: Anatoly Hess Primary Care Provider: Ryder Harris Other Providers: Monica Hernadez; [facility],Home Healthcare; Fariha Alvarez; Anatoly Hess
[2023-09-25] MEDS: PANTOprazole 40 MG in SYRINGE 0 ML IV SCH (12:39)
--- NOTE | 2023-09-26 14:03 | Coding Query ---
Your help is needed for correct coding of this account; please clarify if the patients Post-operative Ileus was:(please see your 09/15 note) ( X) expected out of the surgery ( ) unexpected complication from the surgery ( )other please specify Thank you Juanjo Adan. TYREL CCS MTDD
== END 2023-09-25 16:08 | disposition home health service (06) | DRG 329 ==
LOC: ED 19:11 → OR 23:02 → 3N 09-13 02:34 → SUATTDRO 09-13 02:34 → 2N 09-18 16:40 → 3N 09-24 21:44

== ENCOUNTER 2024-02-25 08:27 | Observation (INO) ==
--- NOTE | 2024-02-19 10:12 | Anesthesiology Consultation ---
Date of Service February 19, 2024 Assessment & Plan (1) Encounter for pre-operative examination: Chart Review Chart Review: Acceptable Risk for Surgery and Patient NOT seen in Pre Admission Testing Consults Requested none History Surgery Operation Date: 02/25/24 09:45 Proposed Procedures p Robotic Laparoscopic Colostomy Reversal - Fariha Alvarez DO Height/Weight Height: 5 ft 8 in Weight: 78.471 kg Allergies Allergy/AdvReac Type Severity Reaction Status Date / Time No Known Allergies Allergy Verified 02/07/24 08:32 Medications Home Medications Medication Instructions Recorded Confirmed Last Taken omeprazole magnesium 20 mg 20 mg PO QAM 07/03/18 02/07/24 01/16/24 07:00 tablet,delayed release (Prilosec OTC) escitalopram oxalate 10 mg tablet 10 mg PO QAM 09/12/23 02/07/24 01/16/24 07:00 magnesium 250 mg tablet 250 mg PO QPM 01/09/24 02/07/24 Unknown melatonin 5 mg tablet 5 mg PO HS PRN Sleep 01/09/24 02/07/24 Unknown Past Medical History Medical History History of hypokalemia per pt right after colostomy placement but then immediately improved GERD (gastroesophageal reflux disease) Depression History of diverticulitis Colostomy in place s/p Jacobs's procedure for perforated diverticulitis 09/17/23 Restless leg syndrome Past Family History Family History Mother Family history of diabetes mellitus Grandmother Family history of diabetes mellitus Other No family history of adverse response to anesthesia Past Surgical History Surgical History Hx of colonoscopy (01/17/24) Dr. Alvarez History of bowel resection (09/17/23) Laparoscopic Hand Assisted Bowel Resection with wash out, Colostomy Creation (Jacobs's procedure) - Dr. Alvarez: GA: MAC#3, ETT#7.0, atraumatic x 1 H/O exploratory laparotomy (09/12/23) Exploratory Laparoscopy, Washout, Lysis of Adhesions, Drain Insertion - Fariha Alvarez DO Cyst removed from back area History of cholecystectomy Brain aneurysm coiled 2014 [employer] Social History Smoking Status: Never smoker Do You Dip or Chew Tobacco: No Hx Alcohol Use: Yes Alcohol type: wine and hard liquor alcohol intake frequency: holidays/special occasions only Hx Substance Use: No substance use type: does not use Testing Electrocardiogram Date: 09/18/23 Findings: + NSR @
[~2024-02-25 08:27] MED LIST changes: +BUPIVACAINE 0.25% PF 30 ML VIAL ONE; -ESCI10TA17 PO; -IBUP-1050 PO; -MULT-506 PO; -OXYC-57 PO; -ROPI0.25 PO
[2024-02-25] MEDS ORDERED: ROPIVACAINE 0.5% 5 MG/ML 30 ML VIAL ONE (08:54)
[2024-02-25] MEDS ORDERED: SODIUM CHLORIDE 0.9% PF INJ 10 ML VIAL ONE (08:54)
[2024-02-25] MEDS ORDERED: ePHEDrine sulfate 50 MG/ML AMP IV PRN (08:55)
[2024-02-25] MEDS ORDERED: fentaNYL citrate PF 100 MCG/2 ML VIAL IV PRN (08:55)
[2024-02-25] MEDS ORDERED: ATROPINE SULFATE 0.1 MG/ML 10ML SYR IV PRN (08:55)
[2024-02-25] MEDS ORDERED: ONDANSETRON INJ 2 MG/ML 2 ML VIAL IV PRN ×2 (08:55→18:34)
[2024-02-25] MEDS ORDERED: HYDROmorphone INJ 1 MG/ML SYRINGE IV PRN (08:55)
[2024-02-25] MEDS: LR 15ML/HR IV SCH (09:25)
[2024-02-25] MEDS ORDERED: LIDOCAINE 2% 2 ML VIAL/AMP(20MG/ML) INFIL ONE (09:27)
[2024-02-25] MEDS ORDERED: ROCURONIUM BROMIDE 10 MG/ML 5 ML VIAL IV ONE ×2 (09:27→15:13)
[2024-02-25] MEDS ORDERED: PROPOFOL IV EMULSION 10 MG/ML 20 ML VIAL IV ONE (09:27)
[2024-02-25] MEDS ORDERED: DEXAMETHASONE SOD INJ 4 MG/ML VIAL ONE (09:27)
[2024-02-25] MEDS ORDERED: ONDANSETRON INJ 2 MG/ML 2 ML VIAL ONE (09:27)
[2024-02-25] MEDS ORDERED: fentaNYL citrate PF 100 MCG/2 ML VIAL ONE (09:28)
[2024-02-25] MEDS ORDERED: KETOROLAC 30 MG/ML VIAL ONE (09:28)
[2024-02-25] MEDS ORDERED: MIDAZOLAM HCL 1 MG/ML 2ML VIAL ONE (09:28)
[2024-02-25] MEDS ORDERED: KETAMINE HCL 10MG/ML SYR ONE (09:28)
[2024-02-25] MEDS ORDERED: SUGAMMADEX SODIUM 200 MG/2 ML VIAL IV ONE (09:28)
--- NOTE | 2024-02-25 09:31 | History & Physical Bridge Note ---
Date of Service February 25, 2024 History & Physical Bridge Note I have examined the patient, reviewed the History & Physical and in the interval since the performance of the History & Physical I have noted the following changes of clinical significance: no changes noted. The patient presents for robotic colostomy reversal. The consent has been obtained and is on the chart.
[2024-02-25] MEDS: CeleBREX 200 MG CAP PO SCH (09:33)
[2024-02-25] MEDS: LACTATED RINGER'S 1,000 ML IV SCH ×2 (09:33→19:32)
[2024-02-25] MEDS: ACETAMINOPHEN 500 MG TAB PO SCH (09:34)
[2024-02-25] MEDS: PREGABALIN 50 MG CAP PO SCH (09:42)
[2024-02-25] MEDS: metroNIDAZOLE 500 MG/100 ML BAG IV ONE (09:44)
[2024-02-25] MEDS ORDERED: BUPIVACAINE 0.5 % 5 MG/1 ML PF 10ML VIAL ONE (09:59)
[2024-02-25] MEDS: levoFLOXacin 500MG / 100ML D5W IV ONE (10:25)
--- OUTSIDE RECORDS SUMMARY | 2024-02-25 10:53 | External Medical Summary ---
Author Name Unknown Address Unknown Organization K01:[facility] - [address] [place] [address] Laboratory Report Ordering Provider Test Date Status CLAUDY XAVIER 02/18/2024 14:33:[address] Alvarez fax number [phone] Observation Date Value Abnormality Reference (Units ) Status SYNC LEUKOCYTES IN BLOOD BY AUTOMATED COUNT 02/18/2024 14:33:24 4.91 4.00-10.80 (K/uL) Final Segs 02/18/2024 14:33:24 51.4 40.0-75.0 (%) Final Lymphs % 02/18/2024 14:33:24 34.6 18.0-42.0 (%) Final Monos 02/18/2024 14:33:24 9.4 1.0-11.0 (%) Final Eosinophils 02/18/2024 14:33:24 2.6 0.0-6.0 (%) Final Basos 02/18/2024 14:33:24 1.2 0.0-2.0 (%) Final Immature Granulocyte, Percent 02/18/2024 14:33:24 0.8 0.0-2.0 (%) Final Absolute Segs 02/18/2024 14:33:24 2.52 1.80-7.70 (K/uL) Final Lymphs, absolute 02/18/2024 14:33:24 1.70 1.00-4.80 (K/ul) Final Monos, Abs 02/18/2024 14:33:24 0.46 0.00-1.10 (K/uL) Final Eos, Abs 02/18/2024 14:33:24 0.13 0.00-0.70 (K/uL) Final Basos, Abs 02/18/2024 14:33:24 0.06 0.00-0.20 (K/uL) Final Immature Granulocytes, Number 02/18/2024 14:33:24 0.04 0.00-0.20 (K/uL) Final Performing Location [facility] [place] [facility] [place] [address]
--- OUTSIDE RECORDS SUMMARY | 2024-02-25 10:53 | External Medical Summary ---
Author Name Unknown Address Unknown Organization [id number]:LABORATORY [facility] – [place], [place] - [address] [place] [address] Laboratory Report Ordering Provider Test Date Status CLAUDY XAVIER 02/18/2024 14:33:[address] Alvarez fax number [phone] Observation Date Value Abnormality Reference (Units ) Status BUN 02/18/2024 14:33:24 12 6-20 (mg/dL) Final Creatinine 02/18/2024 14:33:24 0.8 0.5-1.0 (mg/dL) Final Glomerular filtration rate/1.73 sq M.predicted [Volume Rate/Area] in Serum, Plasma or Blood by Creatinine-based formula (CKD-EPI) 02/18/2024 14:33:24 88 >=60 (mL/min) Final eGFR is calculated based on the CKD-EPI 2020 equation Sodium 02/18/2024 14:33:24 138 135-146 (m mol/L) Final Potassium 02/18/2024 14:33:24 4.2 3.5-5.1 (m mol/L) Final Cl 02/18/2024 14:33:24 103 98-107 (mm ol/L) Final CO2 02/18/2024 14:33:24 26 22-32 (mmo l/L) Final Anion gap 02/18/2024 14:33:24 9 7-15 (mmol /L) Final Glucose 02/18/2024 14:33:24 103 70-120 (mg /dL) Final Calcium 02/18/2024 14:33:24 9.1 8.4-10.2 ( mg/dL) Final Performing Location LABORATORY [facility] – [place], [place] - [address] [place] [address]
--- OUTSIDE RECORDS SUMMARY | 2024-02-25 10:53 | External Medical Summary ---
Author Name Unknown Address Unknown Organization [id number]:[facility] – [place] - [address] [facility] [address] Laboratory Report Ordering Provider Test Date Status CLAUDY XAVIER 02/18/2024 14:33:[address] Alvarez fax number [phone] Observation Date Value Abnormality Reference (Units ) Status WBC, Total 02/18/2024 14:33:24 4.91 4.00-10.80 (K/uL) Final RBC 02/18/2024 14:33:24 4.51 3.85-5.15 (M/uL) Final Hemoglobin 02/18/2024 14:33:24 12.3 12.0-15.3 (g/dL) Final HCT 02/18/2024 14:33:24 37.6 36.0-45.2 (%) Final MCV 02/18/2024 14:33:24 83.4 81.5-97.5 (fL) Final MCH 02/18/2024 14:33:24 27.3 27.0-34.0 (pg) Final MCHC 02/18/2024 14:33:24 32.7 32.0-36.0 (g/dL) Final RDW 02/18/2024 14:33:24 13.9 11.5-15.5 (%) Final Platelets 02/18/2024 14:33:24 248 140-400 (K/uL) Final MPV 02/18/2024 14:33:24 10.8 6.6-11.1 (fL) Final Nucleated erythrocytes/100 leukocytes [Ratio] in Blood by Automated count 02/18/2024 14:33:24 0 <=0 (/100 WBCs) Final Performing Location [facility]ORY [facility] - [address] [place] [address]
--- OUTSIDE RECORDS SUMMARY | 2024-02-25 10:54 | External Medical Summary | Summary of Care ---
Author Name Unknown Organization [facility] Address [address] [place] [address] Phone [phone] Care Team Providers Care Oil Well Directional Surveyor Name Role Phone Yumiko Schaefer DO Primary Care Provider [phone] Reason for Visit * Reason Onset Date Comments Order Request 01/30/2024 Encounter Details Date Type Department Care Team (Late st Contact Info) Description 01/30/2024 [facility] [address] [place] [address] Yumiko Schaefer DO [address] [place] [address] Order Request Allergies Active Allergy Reactions Criticality Noted Date Comments Pollen Other (Please comment) 01/18/2023 Sinus congestion, fogginess, fatigue documented as of this encounter (statuses as of 01/30/2024) Medications Medication Sig Dispensed Refills Start Date End Date Status Magnesium-Zinc 133.33-5 MG Oral Tablet Take 1 Tablet by mouth every evening. 0 Active LORazepam 0.5 MG Oral Tablet (Ativan)Indications:G AD (generalized anxiety disorder),Adjustment insomnia Take 1 Tablet by mouth at bedtime as needed for Insomnia or Anxiety. 30 Tablet 0 06/12/2023 Active Ostomy Drainable Pouch/FlangeIndicatio ns:Status post colostomy (HCC) Please dispense 3 boxes of drainable pouch and 2 boxes flanges Flange monthly 3 Each 3 10/22/2023 Active Melatonin 10 MG Oral Tablet Disintegrating Take 1 Tablet by mouth at bedtime. 0 Active Biotin 5 MG Oral Tablet Take 1 Tablet by mouth in the morning. 0 Active Glucosamine-Chondroit in 500-400 MG Oral Tablet Take 1 Tablet by mouth in the morning. 0 Active Escitalopram Oxalate 10 MG Oral Tablet (Lexapro)Indications: LARISSA (generalized anxiety disorder) Take 1 Tablet by mouth in the morning. 90 Tablet 3 11/21/2023 Active Omeprazole 20 MG Oral Capsule Delayed Release (PriLOSEC)Indications :Gastroesophageal reflux disease, unspecified whether esophagitis present Take 1 Capsule by mouth in the morning. 1 hour before the first meal of the day.. 100 Capsule 3 11/21/2023 Active documented as of this encounter (statuses as of 01/30/2024) Active Problems Problem Noted Date Diagnosed Date Perforated abdominal viscus 09/13/2023 Overview: [facility] 09/13/23 Reflux esophagitis 10/25/2014 Other atopic dermatitis 08/24/2010 [...] DIRECTIVE INFORMATION 03/08/2006 Overview: Pt declines booklet. Diverticulosis of colon 01/10/2004 documented as of this encounter (statuses as of 01/30/2024) Resolved Problems Problem Noted Date Diagnosed Date Resolved Date Asthma with severity to be determined 03/16/2010 07/10/2010 Overview: Per Asthma Taxonomy, 12/13/09 PFT: Normal spirometry with no indication for obstructive or restrictive lung disease. No response to albuterol. ICD-10 update of inactive term Irritable bowel syndrome 10/23/2004 EXTRINSIC ASTHMA, UNSPEC 12/02/2003 Overview: 3/23/10 PFT: Normal spirometry with no indication for obstructive or restrictive lung disease. No response to albuterol. Other allergic rhinitis 12/02/200311/22 Overview: ICD-10 update of inactive term documented as of this encounter (statuses as of 01/30/2024) Immunizations Name Administration Dates Next Due COVID-19 mRNA, LNP-s, No Pre serve, 2-Dose Series (Pfizer) 02/02/2021,01/12/2021 Pneumococcal Polysaccharide PPV23 (Pneumovax) 12/15/2008 Seasonal Influenza Virus Vac cine, Unspecified Formulation 09/22/2018,06/21/2017,08/03/2014 Seasonal Influenza, Quadriva lent, No Preserve, IM [...] Answer Date Recorded PHQ Adult Total Score 0 10/01/2023 Hunger Vital Sign Answer Date Recorded Within the past 12 months, y ou worried that your food would run out before you got the money to buy more. Never true 11/21/19 24 Within the past 12 months, t he food you bought just didn't last and you didn't have money to get more. Never true 11/21/2023 Sex and Gender Information Value Date Recorded Sex Assigned at Not on file Gender Identity Not on file Sexual Orientation Not on file Job Start Date Occupation Industry Not on file Not on file Not on file documented as of this encounter Miscellaneous Notes * Telephone Encounter - Chandni Magallon LPN - 01/30/2024 4:40 PM EDT Orders received from Fariha Oliver for labs for this patient. Orders placed. Thank you Dr Alvarez fax number [phone] documented in this encounter Plan of Treatment Scheduled Orders Name Type Priority Associated Diagnoses Orde r Schedule BASIC METABOLIC PANEL Lab Routine Perforated diverticulum of large intestine Colostomy status (HCC) Other specified pre-operative examination Expected: 01/30/2024 (Approximate), Expires: 01/29/2025 CBC WITH WBC DIFFERENTIAL Lab Routine Perforated diverticulum of large intestine Colostomy status (HCC) Other specified pre-operative examination Expected: 01/30/2024 (Approximate), Expires: 01/29/2025 Health Maintenance Due Date Last Done Comments HIV Screening 1973 Hepatitis C Screening 1976 Cologuard 2003 Sigmoidoscopy 2003 Fecal Occult Blood Test 12/01/2003 11/30/2002 Pneumococcal Vaccine: 65+ Years (2 of 2 - PCV) 12/15/2009 12/15/2008 Colonoscopy 12/21/2016 12/21/2013, 11/23, 04/27/2004 Colorectal Cancer Screening 12/21/2016 DTaP,Tdap,and Td Vaccines (2 - Td or Tdap) 12/15/2018 12/15/2008 COVID-19 Vaccine (3 - season) 2023 02/02/2021, 01/12/2021 DXA Scan 2023 Influenza Vaccine (FLU shot) (Season Ended) 2024 09/25/2019, 09/22/2018, 06/21/2017, Additional history exists Depression Screening 10/01/2024 10/01/2023 Mammogram 12/02/2024 12/03/2023, 10/25, 11/04/2014, Additional history exists Diabetes Screening 11/20/2026 11/21/2023, 0 09/30/2023, 08/01/2014, Additional history exists Lipid Panel 11/20/2028 11/21/2023, 10/23/2013 Cervical Cancer Screening Discontinued Pap Smear Discontinued 10/22/2013, 09/25, 08/31/2010, Additional history exists Zoster Vaccines Completed 04/03/2023, 01/18/2023 GARDASIL-HPV IMMUNIZATION SERIES Aged Out No longer eligible based on patient's age to complete this topic HPV/Co-Test Discontinued Hepatitis B Aged Out No longer eligi ble based on patient's age to complete this topic MENINGOCOCCAL (MENACTRA/MENVEO) Aged Out No longer eligible based on patient's age to complete this topic documented as of this encounter Medical Devices Not on filedocumented as of this encounter Visit Diagnoses Diagnosis Perforated diverticulum of large intestine- Primary Diverticulosis of colon (without mention of hemorrhage) Colostomy status (HCC) Colostomy status Other specified pre-operative examination documented in this encounter Advance Directives Documents on File Type Date Recorded Patient Fur Drummer Expl anation Power of Report Writer 03/15/2014 POWER OF A TTORNEY Care Teams Oil Well Directional Surveyor Relationship Specialty Start Date End Date Yumiko Schaefer DO [address] [facility] [place] [address] PCP - General Family Medicine 11/21/23 documented as of this encounter
[2024-02-25] MEDS ORDERED: HYDROmorphone INJ 2 MG/ML SYR/VIAL ONE (11:02)
[2024-02-25] MEDS ORDERED: ePHEDrine sulfate 50 MG/ML AMP ONE (14:29)
[2024-02-25] MEDS ORDERED: GLYCOPYRROLATE 0.2 MG/ML VIAL ONE (14:29)
[2024-02-25] MEDS ORDERED: PHENYLEPHRINE 100MCG/ML 10ML SYR IV ONE (15:12)
[2024-02-25] MEDS: BUPIVACAINE 0.5 % 5 MG/1 ML MPF 30ML VIAL ONE (16:55)
--- NOTE | 2024-02-25 17:17 | Operative Report ---
PG Post Operative Report Pre & Post Diagnosis Operation Date: 02/25/24 09:45 Pre-Op Diagnosis: Colostomy, History Perforated Diverticulitis Post-Op Diagnosis: Colostomy, History Perforated Diverticulitis I identified the patient and participated in the time-out.: Yes Procedure Operation Date: 02/25/24 09:45 Actual Procedures p Robotic Assisted Laparoscopic Colostomy Reversal(Not Applicable) - Fariha Alvarez DO Surgeon Fariha Alvarez DO Manufacturing Mechanic Vanna Emery. PA Estimated Blood Loss 20 Findings See Below Lower abdominal adhesions Adhesions around the rectal stump Specimens Colostomy Anastomotic donuts Anesthesia Type General Complications None Indications Previous perforated diverticulitis requiring sigmoidectomy and colostomy. Patient return for reversal. Description of Procedure Patient was brought back to the operating room and placed on the operating room table in supine position. She was connected to cardiac and oxygen monitoring, SCDs were applied to bilateral lower extremities and supplemental O2 was administered. The patient was administered general anesthesia and a secure airway was established. A TAP block was performed by anesthesia prior to the start of the case. The patient had rings in place that were removed. The colostomy was sewn closed using 2-0 Vicryl suture. A Hurtado catheter was inserted, the rectum was thoroughly cleaned out using Betadine diluted with saline and the abdomen was prepped and draped in typical sterile fashion using Betadine prep. A timeout was conducted. The colostomy was taken down and the devitalized end was removed. This was sent in a label container to pathology for further analysis. A pursestring suture using 2-0 Prolene suture was applied and an anvil was placed into the colon. The pursestring was sutured down. Harman GelPort was inserted into this location bringing the colon through the GelPort. The colon was reduced into the abdomen. The GelPort Cap along with the trocar were applied to the Harman sleeve and the abdomen was insufflated with CO2 to local pressure 15 mmHg. A 5 mm laparoscope was inserted and omental adhesions were noted in the lower midline as well as small bowel adhesions to the right lower quadrant. Under direct visualization, a 12 mm, three 8 mm robotic trocars and one 5 mm trocar were inserted. The patient was placed and reverse Trendelenburg and right side down. The robot was deployed and docked Cardier, robotic scissor and a forced bipolar grasper were inserted into the robotic arms. Once seated at the console, intra-abdominal adhesions were lysed. This process required extensive lysis of adhesions. There was a small serosal tear to the small bowel during retraction. The left colon was mobilized to allow for the anvil to reach into the pelvis without tension. The rectum was then identified and also mobilized. Initially sizers were unable to penetrate all the way through the rectal stump and further mobilization of the rectum had to be undertaken the rectum from the presacral fascia. The assistant terminal manager used sizers into the rectum to dilate the area with 3 sets of sizers. Indocyanine green injection was given and 6 firefly was used to confirm good blood supply to both the rectum and descending/ sigmoid colon conduit. The EEA was inserted into the rectum. The very proximal part of the pouch was bulky and thickened. A smooth area along the side of the rectum was selected for anastomosis. The tissue at this location was centered on the end of the EEA until an impression of all edges of the EEA were visible pull- through of the rectal wall. The EEA was then deployed by the assistant terminal manager and the anvil in the proximal aspect of the colon was connected. The EEA stapler was fired. The stapler was removed. Fluid was irrigated into the pelvis and air was inserted trans and only and to the right lower rectum as the colon proximal to the anastomosis was compressed to trap air. There was no air leak identified . Excess fluid was suctioned away. Anastomotic donuts were checked. Both proximal and distal donuts were complete. These were sent to pathology in a labeled container for further analysis. Excess irrigant was suctioned. The robot was undocked and the operating table was returned to the neutral position. The endoscope was used to [place] the abdomen and evaluate for additional fluid. Fluid at the left upper and right upper quadrants was suctioned away. Pneumoperitoneum was evacuated and CO2 insufflation was discontinued. The small bowel was ran using the Harman port at the previous colostomy site in order to identify the serosal tear. This was identified, was very minimal. Two 3-0 silk sutures were used to repair this. The small bowel was reduced back to the abdomen. The Harman sleeve was removed. The fascia at the colostomy site was closed using PDS suture. Local anesthetic was used to anesthetize the muscle and fascia at this location. The wound was copiously irrigated with saline and dried. The subcutaneous tissues were approximated using 3-0 Vicryl suture. The skin at the robotic incisions was closed using 4-0 Vicryl suture. The skin at the colostomy site was closed using dain with space left to allow for for drainage. The robotic incisions were then sealed with Dermabond. The previous colostomy site was covered with dry sterile gauze secured in place with cloth, perforated tape. The Hurtado catheter was removed. The patient was awakened from anesthesia and the secure airway was removed. The patient was transferred to recovery in stable condition. The assistance while in this case was to provide retraction and visualization to aid in dissections. The assistant terminal manager also played a critical role in assisting with creation of the anastomosis. I attest to the content of the Intraoperative Record and any orders documented therein. Any exceptions are noted below.
--- NOTE | 2024-02-25 18:11 | Anesthesiology Progress Note ---
Date of Service February 25, 2024 Anesthesia Post Procedure Vital Signs Vital Signs: Temp Pulse Resp BP Pulse Ox O2 Del Method O2 Flow Rate 02/25/24 17:55 82 12 142/89 H 97 Nasal Cannula 2 02/25/24 17:45 89 16 123/94 97 Nasal Cannula 3 02/25/24 17:35 86 16 125/84 96 Nasal Cannula 3 02/25/24 17:25 97.2 F L 72 16 119/79 96 Nasal Cannula 3 02/25/24 08:58 98.2 F 57 L 20 120/52 L 96 Room Air Transfer of Care Handoff Completed per policy Notes Mental Status: alert / awake / arousable and participated in evaluation Patient Amnestic to Procedure: Yes Nausea / Vomiting: adequately controlled Pain: adequately controlled Airway Patency, RR, SpO2: stable & adequate BP & HR: stable & adequate Hydration State: stable & adequate Anesthetic Complications: no major complications apparent and Pt Satisfied with anesthetic care
[2024-02-25] MEDS ORDERED: ARTIFICIAL TEARS OPB PRN (18:19)
[2024-02-25] MEDS ORDERED: oxyCODONE HCL IR 5 MG TAB (IMMEDIATE RELEASE) PO PRN (18:34)
[2024-02-25] MEDS ORDERED: MoRPHine SULFATE 2 MG/ML CARP IV PRN (18:34)
[2024-02-25] MEDS ORDERED: MoRPHine SULFATE 4 MG/ML 1 ML CARP\\VIAL IV PRN (18:34)
[2024-02-25] MEDS: [UNRECOGNIZED DRUG - REMARK] SCH (19:07)
[2024-02-25] MEDS: ACETAMINOPHEN 1,000 MG/100 ML VIAL IV SCH (19:32)
[2024-02-26] MEDS ORDERED: levoFLOXacin/D5W 500 MG/100 ML BAG IV SCH (06:00)
--- NOTE | 2024-02-26 07:45 | Surgery Progress Note ---
Date of Service February 26, 2024 Assessment & Plan (1) S/P colostomy takedown: Plan: POD#1 robotic colostomy take-down Labs are pending. Vitals are stable Pt feeling well, pain controlled. no nausea/vomiting Abdomen soft, expected post op pain. incisions c/d/i Will trial her on fulls this AM and see how she fairs OOB ambulating/Pulm toilet Admission and Anticipated Discharge Date Admission Date: February 25, 2024 Supervising Physician Co-Signing Physician Notes I have seen and examined this patient. Labs returned and are stable. H/H stable, mild post surgical leukocytosis reaction, she has remained afebrile o/n with stable vitals. Minimal pain states a /10 this am. May be discharged home today with outpatient follow up in 2 weeks. Ambulate as much as possible at home. Use Tylenol around the clock for pain, may use Oxycodone between if needed. Subjective Patient is feeling well. Denies nausea/vomiting. Had some gas pains overnight to her shoulder, but this has passed. Her pain is well controlled. She has been up to use the restroom multiple times. Some light bloody discharge per rectum, but no true flatus/BM thus far. Had a full liquid dinner tray last night in addition to water overnight and is tolerating. Physical Exam Physical Exam: awake/alert, no distress Respiratory: normal respiratory effort Gastrointestinal (Abdomen): Inspection/Auscultation: + abdominal surgical incision (c/d/i, dermabond intact. surgical dressing c/d/i); abdomen not distended Percussion/Palpation: + abdomen tender (mild catalino incisional discomfort to palpation) and abdomen soft Results & Data Vital Signs (Past 12 Hours) Vital Signs Temp Pulse Resp BP Pulse Ox O2 Del Method 02/26/24 07:01 98.1 F 86 14 129/64 93 Room Air 02/26/24 03:02 98.1 F 86 18 119/72 95 Room Air 02/25/24 21:17 97.7 F 85 16 132/80 93 Room Air 02/25/24 20:33 97.3 F L 78 14 130/84 94 Room Air PG Care Time/CCT Total # of Minutes Spent Total Time Spent with Patient: Total time spent is greater than 50% in coordination of care (as documented) at patient's floor/unit and/or counseling patient: Coding Level of Care Code 23138 Post Operative Follow-Up Diagnoses S/P colostomy takedown Z98.890
[2024-02-26 08:17] LABS: Basophils # (auto) 0.03 K/uL (0.00-0.20); Basophils % (auto) 0.3 %; Hematocrit (blood only) 36.2 % (37.0-47.0); Hemoglobin 11.9 g/dl (12.0-16.0); Immature Granulocytes # (auto) 0.06 K/uL (0.01-0.20); Immature Granulocytes % (auto) 0.5 %; Lymphocytes # (auto) 1.49 K/uL (1.20-3.40); Lymphocytes % (auto) 12.5 %; Mean Corpuscular Hgb Conc 32.9 g/dL (32.0-36.0); Mean Corpuscular Volume 82.3 fL (80.0-100.0); Mean Platelet Volume 9.7 fL (9.4-12.4); Monocytes # (auto) 1.05 K/uL (0.11-0.59); Monocytes % (auto) 8.8 %; Neutrophils % (auto) 77.9 %; Platelet Count 233 K/uL (130-400); RDW Coefficient of Variation 14.7 % (11.5-14.5); RDW Standard Deviation 43.8 fL (36.4-46.3); White Blood Count 11.93 K/ul (4.8-10.8)
[2024-02-26 08:24] LABS: BUN Creatinine Ratio 12.5 (10-20); Calcium 8.1 mg/dl (8.6-10.3); Creatinine Clr Calc Pharmacy 85.9 ml/min; Est GFR (African American) 101.9 ml/min; Est GFR (Non-African American) 87.9 ml/min; Potassium 4.1 mmol/L (3.5-5.1)
[2024-02-26] MEDS: ESCITALOPRAM OXALATE 10 MG TAB PO SCH (08:29)
[2024-02-26] MEDS: PANTOprazole 40 MG TAB PO SCH (08:30)
[2024-02-26] MEDS: oxyCODONE HCL IR 5 MG TAB (IMMEDIATE RELEASE) PO PRN (11:04)
[2024-02-26] MEDS: ACETAMINOPHEN 325 MG TAB PO ONE (13:05)
== END 2024-02-26 14:21 | disposition home or self-care (01) ==
LOC: 3W 08:27 → ASU 08:27